=== PATIENT | male | born 1945 | race Caucasian/White ===

== ENCOUNTER 2020-01-20 09:57 | Observation (INO) | payer BC, MEDICARE ==
[2020-01-20 10:51] LABS: Basophils % (A) 0 %; Eosinophils # (A) 0.1 k/uL (0-0.7); Eosinophils % (A) 1 %; HCT 43.4 % (39.0-53.0); HGB 14.6 gm/dL (13.0-17.5); Lymphocytes # (A) 1.1 k/uL (1.0-4.8); Lymphocytes % (A) 13 %; MCH 29.6 pg (25.0-35.0); MCHC 33.8 g/dL (31.0-37.0); MCV 87.6 fL (80.0-100.0); Mean Platelet Volume 7.3; Monocytes # (A) 0.4 k/uL (0-1.0); Monocytes % (A) 5 %; Neutrophils % (A) 80 %; Platelet Count 273 k/uL (150-450); RBC 4.95 m/uL (4.30-5.90); RDW 13.2 % (11.5-15.5); WBC 8.7 k/uL (3.8-10.6)
--- NOTE | 2020-01-20 10:59 | ED ---
General Adult HPI - General Chief complaint: Shortness of Breath Stated complaint: SOB Time Seen by Provider: 01/20/20 10:05 Source: patient, RN notes reviewed, old records reviewed Mode of arrival: wheelchair Limitations: no limitations - History of Present Illness Initial comments: This is a 74-year-old male who presents emergency Department stating he has been short of breath for a month. Patient states 2 days ago he went to [facility] where he was admitted and eventually discharged. Patient states that they could not determine why he was short of breath. Patient comes in today because last night in the middle the night he was having hard time breathing even with his CPAP. Patient states she got up and walked around and was extre josep short of breath so decided come emergency department. Patient denies any recent fever chills or cough. Patient denies any chest pain or heaviness. Patient denies headache patient denies numbness weakness. Patient denies any swelling to legs or calf tenderness. - Related Data Home Medications Medication Instructions Recorded Confirmed Aspirin EC [Ecotrin Low Dose] 81 mg PO DAILY 01/20/20 01/20/20 Metoprolol Tartrate [Lopressor] 100 mg PO BID 01/20/20 01/20/20 Multivit-Min/FA/Lycopen/Lutein 1 tab PO DAILY 01/20/20 01/20/20 [Centrum Silver Tablet] Omeprazole 20 mg PO BID 01/20/20 01/20/20 Simvastatin [Zocor] 20 mg PO HS 01/20/20 01/20/20 amLODIPine [Norvasc] 10 mg PO DAILY 01/20/20 01/20/20 hydroCHLOROthiazide [Hydrodiuril] 25 mg PO DAILY 01/20/20 01/20/20 lisinopriL [Zestril] 20 mg PO BID 01/20/20 01/20/20 Allergies Allergy/AdvReac Type Severity Reaction Status Date / Time oxycodone AdvReac Nausea & Verified 01/20/20 11:48 Vomiting Review of Systems ROS Statement: Those systems with pertinent positive or pertinent negative responses have been documented in the HPI. ROS Other: All systems not noted in ROS Statement are negative. Past Medical History Past Medical History: Coronary Artery Disease (CAD), CVA/TIA History of Any Multi-Drug Resistant Organisms: None Reported Past Surgical History: Back Surgery, Joint Replacement Past Psychological History: No Psychological Hx Reported Smoking Status: Never smoker Past Alcohol Use History: None Reported Past Drug Use History: None Reported General Exam - General Exam Comments Initial Comments: GENERAL: Patient is well-developed and well-nourished. Patient is nontoxic and well- hydrated and is in mild distress. ENT: Neck is soft and supple. No significant lymphadenopathy is noted. Oropharynx is clear. Moist mucous membranes. Neck has full range of motion without eliciting any pain. EYES: The sclera were anicteric and conjunctiva were pink and moist. Extraocular movements were intact and pupils were equal round and reactive to light. Eyelids were unremarkable. PULMONARY: Unlabored respirations. Good breath sounds bilaterally. No audible rales rhonchi or wheezing was noted. CARDIOVASCULAR: There is a regular rate and rhythm without any murmurs gallops or rubs. ABDOMEN: Soft and nontender with normal bowel sounds. SKIN: Skin is clear with no lesions or rashes and otherwise unremarkable. NEUROLOGIC: Patient is alert and oriented x3. Cranial nerves II through XII are grossly intact. Motor and sensory are also intact. Normal speech, volume and content. Symmetrical smile. MUSCULOSKELETAL: Normal extremities with adequate strength and full range of motion. LYMPHATICS: No significant lymphadenopathy is noted PSYCHIATRIC: Normal psychiatric evaluation. Limitations: no limitations Course Vital Signs 01/20/20 01/20/20 10:04 11:40 Temperature 98.0 F 97.9 F Pulse Rate 56 L 48 L Respiratory 18 16 Rate Blood Pressure 136/73 145/77 O2 Sat by Pulse 99 99 Oximetry Medical Decision Making - Medical Decision Making EKG shows sinus bradycardia at 47 bpm AR interval is 202 QRS is 100 QT interval is 468 QTC is 414. Patient's EKG shows no ST segment elevation or depression. Chest x-ray shows no acute abnormality. CT of the chest shows a blood clot the right upper lobe. I started the patient on high-dose heparin. I spoke with sounds physician's and he agreed to admit the patient admitted the patient I wrote admitting orders - Lab Data Result diagrams: 01/20/20 10:35 01/20/20 10:35 Lab Results 01/20/20 01/20/20 01/20/20 Range/Units 10:35 10:35 10:35 WBC 8.7 (3.8-10.6) k/uL RBC 4.95 (4.30-5.90) m/uL Hgb 14.6 (13.0-17.5) gm/dL Hct 43.4 (39.0-53.0) % MCV 87.6 (80.0-100.0) fL MCH 29.6 (25.0-35.0) pg MCHC 33.8 (31.0-37.0) g/dL RDW 13.2 (11.5-15.5) % Plt Count 273 (150-450) k/uL MPV 7.3 Neutrophils % 80 % Lymphocytes % 13 % Monocytes % 5 % Eosinophils % 1 % Basophils % 0 % Neutrophils # 7.0 (1.3-7.7) k/uL Lymphocytes # 1.1 (1.0-4.8) k/uL Monocytes # 0.4 (0-1.0) k/uL Eosinophils # 0.1 (0-0.7) k/uL Basophils # 0.0 (0-0.2) k/uL PT 9.8 (9.0-12.0) sec INR 0.9 (<1.2) APTT 23.3 (22.0-30.0) sec D-Dimer (<0.60) mg/L FEU Sodium 142 (137-145) mmol/L Potassium 3.7 (3.5-5.1) mmol/L Chloride 104 (98-107) mmol/L Carbon Dioxide 30 (22-30) mmol/L Anion Gap 8 mmol/L BUN 19 (9-20) mg/dL Creatinine 0.79 (0.66-1.25) mg/dL Est GFR (CKD-EPI)AfAm >90 (>60 ml/min/1.73 sqM) Est GFR (CKD-EPI)NonAf >90 (>60 ml/min/1.73 sqM) Glucose 111 H (74-99) mg/dL Plasma Lactic Acid Fredrick (0.7-2.0) mmol/L Calcium 9.1 (8.4-10.2) mg/dL Magnesium 1.9 (1.6-2.3) mg/dL Total Bilirubin 1.0 (0.2-1.3) mg/dL AST 33 (17-59) U/L ALT 24 (4-49) U/L Alkaline Phosphatase 85 (38-126) U/L Troponin I (0.000-0.034) ng/mL NT-Pro-B Natriuret Pep pg/mL Total Protein 7.0 (6.3-8.2) g/dL Albumin 4.1 (3.5-5.0) g/dL 01/20/20 01/20/20 01/20/20 Range/Units 10:35 10:35 10:35 WBC (3.8-10.6) k/uL RBC (4.30-5.90) m/uL Hgb (13.0-17.5) gm/dL Hct (39.0-53.0) % MCV (80.0-100.0) fL MCH (25.0-35.0) pg MCHC (31.0-37.0) g/dL RDW (11.5-15.5) % Plt Count (150-450) k/uL MPV Neutrophils % % Lymphocytes % % Monocytes % % Eosinophils % % Basophils % % Neutrophils # (1.3-7.7) k/uL Lymphocytes # (1.0-4.8) k/uL Monocytes # (0-1.0) k/uL Eosinophils # (0-0.7) k/uL Basophils # (0-0.2) k/uL PT (9.0-12.0) sec INR (<1.2) APTT (22.0-30.0) sec D-Dimer (<0.60) mg/L FEU Sodium (137-145) mmol/L Potassium (3.5-5.1) mmol/L Chloride (98-107) mmol/L Carbon Dioxide (22-30) mmol/L Anion Gap mmol/L BUN (9-20) mg/dL Creatinine (0.66-1.25) mg/dL Est GFR (CKD-EPI)AfAm (>60 ml/min/1.73 sqM) Est GFR (CKD-EPI)NonAf (>60 ml/min/1.73 sqM) Glucose (74-99) mg/dL Plasma Lactic Acid Fredrick 1.0 (0.7-2.0) mmol/L Calcium (8.4-10.2) mg/dL Magnesium (1.6-2.3) mg/dL Total Bilirubin (0.2-1.3) mg/dL AST (17-59) U/L ALT (4-49) U/L Alkaline Phosphatase (38-126) U/L Troponin I <0.012 (0.000-0.034) ng/mL NT-Pro-B Natriuret Pep 68 pg/mL Total Protein (6.3-8.2) g/dL Albumin (3.5-5.0) g/dL 01/20/20 Range/Units 10:35 WBC (3.8-10.6) k/uL RBC (4.30-5.90) m/uL Hgb (13.0-17.5) gm/dL Hct (39.0-53.0) % MCV (80.0-100.0) fL MCH (25.0-35.0) pg MCHC (31.0-37.0) g/dL RDW (11.5-15.5) % Plt Count (150-450) k/uL MPV Neutrophils % % Lymphocytes % % Monocytes % % Eosinophils % % Basophils % % Neutrophils # (1.3-7.7) k/uL Lymphocytes # (1.0-4.8) k/uL Monocytes # (0-1.0) k/uL Eosinophils # (0-0.7) k/uL Basophils # (0-0.2) k/uL PT (9.0-12.0) sec INR (<1.2) APTT (22.0-30.0) sec D-Dimer 1.05 H (<0.60) mg/L FEU Sodium (137-145) mmol/L Potassium (3.5-5.1) mmol/L Chloride (98-107) mmol/L Carbon Dioxide (22-30) mmol/L Anion Gap mmol/L BUN (9-20) mg/dL Creatinine (0.66-1.25) mg/dL Est GFR (CKD-EPI)AfAm (>60 ml/min/1.73 sqM) Est GFR (CKD-EPI)NonAf (>60 ml/min/1.73 sqM) Glucose (74-99) mg/dL Plasma Lactic Acid Fredrick (0.7-2.0) mmol/L Calcium (8.4-10.2) mg/dL Magnesium (1.6-2.3) mg/dL Total Bilirubin (0.2-1.3) mg/dL AST (17-59) U/L ALT (4-49) U/L Alkaline Phosphatase (38-126) U/L Troponin I (0.000-0.034) ng/mL NT-Pro-B Natriuret Pep pg/mL Total Protein (6.3-8.2) g/dL Albumin (3.5-5.0) g/dL Critical Care Time Critical Care Time: Yes Total Critical Care Time: 35 Disposition Clinical Impression: Pulmonary embolism Disposition: ADMITTED IP TO THIS HOSP Referrals: Nonstaff,Physician [Primary Care Provider] - 1-2 days Time of Disposition: 14:53
[2020-01-20 11:05] LABS: ALT 24 U/L (4-49); AST 33 U/L (17-59); African American GFR (CKD) >90 (>60 ml/min/1.73 sqM); Albumin 4.1 g/dL (3.5-5.0); Alkaline Phosphatase 85 U/L (38-126); Anion Gap 8 mmol/L; Blood Urea Nitrogen 19 mg/dL (9-20); Calcium 9.1 mg/dL (8.4-10.2); Carbon Dioxide 30 mmol/L (22-30); Chloride 104 mmol/L (98-107); Glucose 111 mg/dL (74-99); Magnesium 1.9 mg/dL (1.6-2.3); Non-African American GFR(CKD) >90 (>60 ml/min/1.73 sqM); Potassium 3.7 mmol/L (3.5-5.1); Sodium 142 mmol/L (137-145)
[2020-01-20 11:11] LABS: INR 0.9 (<1.2); Partial Thromboplastin Time 23.3 sec (22.0-30.0); Prothrombin Time 9.8 sec (9.0-12.0)
--- NOTE | 2020-01-20 11:32 | XR ---
EXAMINATION TYPE: XR chest 2V DATE OF EXAM: 01/20/2020 COMPARISON: NONE HISTORY: Difficulty in breathing. TECHNIQUE: Frontal and lateral views of the chest are obtained. FINDINGS: Overlying EKG leads are present. There is underlying mild chronic emphysematous changes th ought present without suspicious focal air space opacity, pleural effusion, or pneumothorax seen. Th e cardiac silhouette size is within normal limits. Multilevel spurring in the thoracic spine. IMPRESSION: No acute cardiopulmonary process.
[2020-01-20] MEDS ORDERED: HEPARIN SODIUM,PORCINE 5,000 UNIT/ML 1 ML VIAL IV ONE (14:38)
--- NOTE | 2020-01-20 14:39 | CT ---
EXAMINATION TYPE: CT chest angio for PE DATE OF EXAM: 01/20/2020 COMPARISON: None HISTORY: difficulty breathing CT DLP: 891.3 mGycm Automated exposure control for dose reduction was used. CONTRAST: CT Chest for pulmonary embolism performed with with IV Contrast, patient injected with 100 mL of Isov ue 370. FINDINGS: LUNGS: The lungs are grossly clear, there is no concerning parenchymal mass or nodule identified. T here is no pleural effusion or pneumothorax seen. The tracheobronchial tree is patent. Subsegmental changes involving the lungs are most typical of atelectasis. MEDIASTINUM: There small filling defect within the right upper lobe branch suspicious for a small pul monary embolism best noted on coronal image 99 and axial image 60. There are no greater than 1 cm hi lar or mediastinal lymph nodes. No pericardial effusion is seen. Aortic root measures 4 cm compat ible with mild aneurysmal dilation. Coronary artery calcification noted. OTHER: Hypertrophic and degenerative change of the spine. Hypodensity within caudate lobe of the maryse er is too small to characterize. IMPRESSION: 1. There is asymmetric tiny filling defect within a right upper lobe branch as discussed above suspic ious for a right upper lobe branch pulmonary embolism. 2. 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 3. Indeterminate hepatic lesion too small to characterize. 4. Cardiomegaly
[2020-01-20] MEDS ORDERED: HEPARIN SODIUM,PORCINE 10,000 UNIT/ML 1 ML VIAL IV ONE (14:42)
[2020-01-20] MEDS ORDERED: HEPARIN SOD,PORK IN 0.45% NACL 25,000 UNIT in 0.45% NACL 1 250ML.BAG IV SCH (14:45)
[2020-01-20] MEDS ORDERED: SODIUM CHLORIDE 0.9% 1,000 ML IV ONE (14:54)
[2020-01-20] MEDS: HEPARIN SODIUM,PORCINE 5,000 UNIT/ML 1 ML VIAL IV PRN (15:05)
[2020-01-20] MEDS: HEPARIN SOD,PORK IN 0.45% NACL 25,000 UNIT in 0.45% NACL 1 250ML.BAG IV SCH (15:07)
--- NOTE | 2020-01-20 18:04 | P.HPIM ---
History of Present Illness H&P Date: 01/20/20 Chief Complaint: Shortness of breath Patient is a 74-year-old male who presented to the hospital for shortness of breath overnight. The patient history of stroke with residual lower extremity neuropathy. He states uses a CPAP at night. The patient states despite the use of his CPAP he felt very short of breath. The patient states he was recently seen [facility] was hospitalized for 2 days in a states his workup was negative at the outside facility. In the emergency room patient had a CT that showed a possible small pulmonary emboli the patient was started on IV heparin and was hospitalized for further workup and management. He didn't denies any recent travel any sick contacts states he has been quarantining at home with his . The patient denies any fevers or chills and productive cough. Review of Systems Complete Review of systems was done and negative other than as stated above Past Medical History Past Medical History: Coronary Artery Disease (CAD), CVA/TIA History of Any Multi-Drug Resistant Organisms: None Reported Past Surgical History: Back Surgery, Joint Replacement Past Psychological History: No Psychological Hx Reported Smoking Status: Never smoker Past Alcohol Use History: None Reported Past Drug Use History: None Reported Medications and Allergies Home Medications Medication Instructions Recorded Confirmed Type Aspirin EC [Ecotrin Low Dose] 81 mg PO DAILY 01/20/20 01/20/20 History Metoprolol Tartrate [Lopressor] 100 mg PO BID 01/20/20 01/20/20 History Multivit-Min/FA/Lycopen/Lutein 1 tab PO DAILY 01/20/20 01/20/20 History [Centrum Silver Tablet] Omeprazole 20 mg PO BID 01/20/20 01/20/20 History Simvastatin [Zocor] 20 mg PO HS 01/20/20 01/20/20 History amLODIPine [Norvasc] 10 mg PO DAILY 01/20/20 01/20/20 History hydroCHLOROthiazide [Hydrodiuril] 25 mg PO DAILY 01/20/20 01/20/20 History lisinopriL [Zestril] 20 mg PO BID 01/20/20 01/20/20 History Allergies Allergy/AdvReac Type Severity Reaction Status Date / Time oxycodone AdvReac Nausea & Verified 01/20/20 11:48 Vomiting Physical Exam Vitals: Vital Signs Temp Pulse Resp BP Pulse Ox 01/20/20 16:46 50 L 14 138/76 99 01/20/20 15:51 97.9 F 48 L 18 138/62 99 01/20/20 14:58 97.8 F 51 L 16 144/60 99 01/20/20 11:40 97.9 F 48 L 16 145/77 99 01/20/20 10:04 98.0 F 56 L 18 136/73 99 Intake and Output 01/20/20 01/20/20 01/20/20 06:59 14:59 22:59 Other: Weight 136.078 kg - Constitutional General appearance: no acute distress - EENT Eyes: PERRLA - Respiratory Respiratory: bilateral: CTA - Cardiovascular Rhythm: regular - Gastrointestinal General gastrointestinal: normal bowel sounds - Integumentary Integumentary: normal - Neurologic Neurologic: CNII-XII intact - Musculoskeletal Musculoskeletal: strength equal bilaterally - Psychiatric Psychiatric: A&O x's 3, appropriate affect Results CBC & Chem 7: 01/20/20 10:35 01/20/20 10:35 Labs: Abnormal Lab Results - Last 24 Hours (Table) 01/20/20 01/20/20 Range/Units 10:35 10:35 D-Dimer 1.05 H (<0.60) mg/L FEU Glucose 111 H (74-99) mg/dL Abdominal x-ray: report reviewed CT scan - chest: report reviewed Assessment and Plan (1) Pulmonary embolism Narrative/Plan: Smooth-walled possible embolize noted does not appear that this could account for his shortness of breath we'll check echocardiogram, will also check lower extremity Dopplers will continue IV heparin Current Visit: Yes Status: Acute Code(s): I26.99 - OTHER PULMONARY EMBOLISM WITHOUT ACUTE COR PULMONALE SNOMED Code(s): 92468896 (2) COPD (chronic obstructive pulmonary disease) Narrative/Plan: The patient has a history of COPD we'll continue nebs when necessary Current Visit: Yes Status: Acute Code(s): J44.9 - CHRONIC OBSTRUCTIVE PULMONARY DISEASE, UNSPECIFIED SNOMED Code(s): 89982151 (3) Hypertension Narrative/Plan: Continue his outpatient regimen and titrate as needed Current Visit: Yes Status: Acute Code(s): I10 - ESSENTIAL (PRIMARY) HYPERTENSION SNOMED Code(s): 11166183
--- NOTE | 2020-01-20 20:25 | US ---
EXAMINATION TYPE: US venous doppler duplex LE DATE OF EXAM: 01/20/2020 7:20 PM COMPARISON: NONE CLINICAL HISTORY: r/o dvt. R/O DVT. Patient has PE. Patient is on a blood thinner. Swelling bilateral lower extremities. SIDE PERFORMED: Bilateral TECHNIQUE: The lower extremity deep venous system is examined utilizing real time linear array sonog abdulaziz with graded compression, doppler sonography and color-flow sonography. VESSELS IMAGED: Common Femoral Vein Deep Femoral Vein Greater Saphenous Vein * Femoral Vein Popliteal Vein Small Saphenous Vein * Proximal Calf Veins (* superficial vessels) Right Leg: No evidence of DVT in veins imaged at this time from prox calf veins to CFV, although exa m is very limited within femoral vein. Limited due to swelling. Left Leg: No evidence of DVT in veins imaged at this time from prox calf veins to CFV, although exam is very limited within the femoral vein. Limited visibility due to swelling. IMPRESSION: No evidence for deep vein thrombosis in both legs. Limited exam.
[2020-01-20] MEDS: IPRATROPIUM-ALBUTEROL 3 ML NEB INHALATION PRN (20:37)
[2020-01-20] MEDS: ATORVASTATIN 10 MG TAB PO SCH (21:15)
[2020-01-20] MEDS: METOPROLOL TARTRATE 50 MG TAB PO SCH (21:16)
[2020-01-20] MEDS: lisinopriL 20 MG TAB PO SCH (21:16)
[2020-01-21] MEDS: HEPARIN SODIUM,PORCINE 5,000 UNIT/ML 1 ML VIAL IV PRN (01:46)
[2020-01-21] MEDS: HEPARIN SOD,PORK IN 0.45% NACL 25,000 UNIT in 0.45% NACL 1 250ML.BAG IV SCH ×2 (04:47→12:48)
[2020-01-21 06:56] LABS: Basophils % (A) 1 %; Eosinophils # (A) 0.1 k/uL (0-0.7); Eosinophils % (A) 1 %; HCT 40.7 % (39.0-53.0); HGB 13.7 gm/dL (13.0-17.5); Lymphocytes # (A) 1.7 k/uL (1.0-4.8); Lymphocytes % (A) 20 %; MCH 30.1 pg (25.0-35.0); MCHC 33.8 g/dL (31.0-37.0); Mean Platelet Volume 7.3; Monocytes # (A) 0.5 k/uL (0-1.0); Monocytes % (A) 6 %; Neutrophils # (A) 5.8 k/uL (1.3-7.7); Neutrophils % (A) 70 %; Platelet Count 251 k/uL (150-450); RBC 4.57 m/uL (4.30-5.90); RDW 13.5 % (11.5-15.5); WBC 8.3 k/uL (3.8-10.6)
[2020-01-21] MEDS: hydroCHLOROthiazide 25 MG TAB PO SCH (08:30)
[2020-01-21] MEDS: ASPIRIN 81 MG PO SCH (08:30)
[2020-01-21] MEDS: lisinopriL 20 MG TAB PO SCH ×2 (08:31→20:53)
[2020-01-21] MEDS: amLODIPine 10 MG TAB PO SCH (08:31)
[2020-01-21] MEDS: PANTOPRAZOLE 40 MG TABLET PO SCH (08:31)
[2020-01-21] MEDS: MULTIVITAMINS, THERA 1 EACH TAB PO SCH (08:31)
[2020-01-21] MEDS: METOPROLOL TARTRATE 50 MG TAB PO SCH ×2 (08:31→20:54)
[2020-01-21 10:20] LABS: African American GFR (CKD) 86.8 (60.0-200.0); Calcium 8.8 mg/dL (8.7-10.3); Non-African American GFR(CKD) 74.9 (60.0-200.0); Potassium 3.6 mmol/L (3.5-5.5)
--- NOTE | 2020-01-21 11:34 | ECHOF ---
Referral Reason:dyspnea MEASUREMENTS -------- HEIGHT: 180.3 cm WEIGHT: 136.1 kg BP: 130/51 RVIDd: 3.7 cm (< 3.3) IVSd: 1.5 cm (0.6 - 1.1) LVIDd: 5.4 cm (3.9 - 5.3) LVPWd: 1.4 cm (0.6 - 1.1) IVSs: 2.2 cm LVIDs: 3.8 cm LVPWs: 1.8 cm LAESV Index (A-L): 23.84 ml/m Ao Diam: 3.2 cm (2.0 - 3.7) AV Cusp: 2.4 cm (1.5 - 2.6) MV EXCURSION: 21.568 mm (> 18.000) MV EF SLOPE: 82 mm/s (70 - 150) EPSS: 1.2 cm MV E Iam: 1.16 m/s MV DecT: 242 ms MV A Iam: 1.16 m/s MV E/A Ratio: 1.00 RAP: 5.00 mmHg RVSP: 26.87 mmHg FINDINGS -------- Sinus rhythm. This was a technically difficult study with suboptimal views. The left ventricular size is normal. There is moderate concentric left ventricular hypertrophy. O verall left ventricular systolic function is low-normal with, an EF between 50 - 55 %. The diastoli c filling pattern is normal for the age of the patient 10.90. The right ventricle is mildly enlarged. Normal LA size by volume 22+/-6 ml/m2. The right atrium was not well visualized. 5.0mg of Lumason was utilized for enhancement of images Interatrial and interventricular septum intact. There is no evidence of aortic regurgitation. There is no evidence of aortic stenosis. There is trace mitral regurgitation. Mild tricuspid regurgitation present. There is no evidence of pulmonary hypertension. The right v entricular systolic pressure, as measured by Doppler, is 26.87mmHg. There is no pulmonic regurgitation present. The aortic root size is normal. IVC Not well visulized. There is no pericardial effusion. CONCLUSIONS -------- 1. The left ventricular size is normal. 2. There is moderate concentric left ventricular hypertrophy. 3. Overall left ventricular systolic function is low-normal with, an EF between 50 - 55 %. 4. The diastolic filling pattern is normal for the age of the patient 10.90 5. The right ventricle is mildly enlarged. 6. There is trace mitral regurgitation. 7. Mild tricuspid regurgitation present. DIRECTOR OF PROGRAMMING: Natalie Garza RDCS
[2020-01-21] MEDS: IPRATROPIUM-ALBUTEROL 3 ML NEB INHALATION PRN (13:23)
--- NOTE | 2020-01-21 15:28 | CONS ---
CONSULTATION PULMONARY/CRITICAL CARE CONSULTATION: DATE OF SERVICE: January 21, 2020 HISTORY OF PRESENT ILLNESS: This is a 74-year-old male who presented to the emergency department complaining of shortness of breath. The shortness of breath has been present for about a month or so. Not getting any better. A couple days ago he went to [facility] where he was admitted and eventually discharged. Apparently they evaluated him, did some testing, and told him that they could not find out what was wrong with him. More recently, he comes into the emergency room on January 19 at 9:57 complaining of worsening shortness of breath. He was having a hard time breathing at nighttime when he was wearing a CPAP device. He got up and walked around and he became more short of breath and that is when he came to the emergency room. He denies any fever or chills or cough. Not producing any phlegm. No chest pain or chest heaviness. No nausea, vomiting, diarrhea, abdominal pain. No genitourinary complaints. He denies any headache. There is no numbness or tingling. He really denies all complaints other than progressive and worsening shortness of breath, more significant on exertion. The patient had a chest x-ray here which is normal and a CT angiogram which apparently showed a right upper lobe pulmonary embolism. HOME MEDICATIONS: Include aspirin, metoprolol, multivitamins, omeprazole, Zocor, amlodipine, HydroDIURIL and lisinopril. ALLERGIES: OXYCODONE. MEDICAL HISTORY: CAD, CVA, hypertension, hyperlipidemia, and gastroesophageal reflux disease. SURGICAL HISTORY: Includes back surgery and joint replacement. SOCIAL HISTORY: Significant in that he is a lifelong nonsmoker. Denies any alcohol or illicit drug use. FAMILY HISTORY: Noncontributory. Mother and father were healthy. 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 REVIEW OF SYSTEMS: CONSTITUTIONAL negative. NEUROLOGIC negative. HEENT negative. CARDIOVASCULAR negative. PULMONARY: Shortness of breath particularly on exertion. GI negative. negative. IMMUNOLOGIC negative. ENDOCRINOLOGIC negative. DERMATOLOGIC negative. PHYSICAL EXAMINATION: VITAL SIGNS: Current vital signs are reviewed. Temperature is 98, heart rate 74, respiratory rate 20, blood pressure 155/87 mean 109. 3 L saturations 100%. GENERAL: He is sitting on the edge of the bed. He appears not to be in any distress. There is no conversational dyspnea or use of accessory muscles. HEENT: Examination is grossly unremarkable. NECK: Supple. CARDIOVASCULAR examination reveals regular rhythm and rate. Heart rate 74 beats per minute. S1, S2 normal. LUNGS: Reveal mostly clear breath sounds. No wheezes, rhonchi, or crackles. ABDOMEN: Obese. Bowel sounds are heard. EXTREMITIES are intact. No cyanosis, clubbing, or edema. SKIN: Without rash. NEUROLOGIC: Examination is nonfocal. LAB DATA: Reviewed. White count 8.3, hemoglobin 13.7, hematocrit 40.7, platelet count 351,000. PT/INR PTT normal. D-dimer 1.05, PTT 47.8. Sodium, potassium chloride, CO2 all normal. Anion gap is normal. BUN and creatinine were normal. Glucose 115. The rest of the CMP was normal. IMAGING PROCEDURE: The patient had a chest x-ray which showed no acute disease. The patient had a bilateral lower extremity Doppler, which was negative for DVT. The patient had a CT angiogram of the chest done which revealed the right upper lobe pulmonary embolism. The embolism is relatively small. There is no evidence of right heart strain. Current medications reviewed. He is currently on amlodipine, aspirin, Lipitor, IV heparin, hydrochlorothiazide, DuoNeb lisinopril, metoprolol, multivitamins, Protonix. ASSESSMENT: 1. Shortness of breath, seemingly out of proportion to the abnormality on CT angiogram, which showed evidence of a small right upper lobe pulmonary embolism. 2. No history of any intrinsic pulmonary disease. 3. Lifelong nonsmoker. 4. History of coronary artery disease. 5. History of hypertension. 6. History of hyperlipidemia. 7. Gastroesophageal reflux disease. 8. Cerebrovascular accident. PLAN: The patient was started on IV heparin. He can be transitioned to a factor Xa inhibitor. He is on oxygen therapy. We did add some breathing treatments. No additional recommendations are made. Prognosis is guarded. MMODL / IJN: [id number] /
--- NOTE | 2020-01-21 16:00 | P.PN ---
Subjective Progress Note Date: 01/21/20 Principal diagnosis: Shortness of breath or pulmonary embolism Objective - Vital Signs Vital signs: Vital Signs Temp 98 F 01/21/20 12:50 Pulse 74 01/21/20 13:37 Resp 20 01/21/20 12:50 BP 155/87 01/21/20 12:50 Pulse Ox 100 01/21/20 12:50 Intake & Output 01/20/20 01/21/20 01/21/20 18:59 06:59 18:59 Intake Total 250.000 227.994 Balance 250.000 227.994 Weight 136.078 kg Intake: Intake, IV Titration 250.000 227.994 Amount Heparin Sod,Pork in 0.45% 250.000 227.994 NaCl 25,000 unit In 0.45 % NaCl 1 250ml.bag @ 16.9 UNITS/KG/HR 22.997 mls/ hr IV .[id number] RODY Rx#: [id number] Other: # Voids 1 2 - Constitutional General appearance: Present: no acute distress - Respiratory Respiratory: bilateral: CTA - Cardiovascular Rhythm: regular - Gastrointestinal General gastrointestinal: Present: normal bowel sounds - Psychiatric Psychiatric: Present: appropriate affect - Labs CBC & Chem 7: 01/21/20 06:26 01/21/20 06:26 Labs: Abnormal Lab Results - Last 24 Hours (Table) 01/21/20 01/21/20 Range/Units 06:26 06:26 APTT 47.8 H (22.0-30.0) sec Glucose 115 H (70-110) mg/dL Assessment and Plan (1) Pulmonary embolism Narrative/Plan: Appreciate pulmonary input will change to an factor X inhibitor, extremity Dopplers negative for DVT, continue to optimize check and reassess in a.m. Current Visit: Yes Status: Acute Code(s): I26.99 - OTHER PULMONARY EMBOLISM WITHOUT ACUTE COR PULMONALE SNOMED Code(s): 08747347 (2) COPD (chronic obstructive pulmonary disease) Narrative/Plan: The patient is a lifelong nonsmoker nebs added Current Visit: Yes Status: Acute Code(s): J44.9 - CHRONIC OBSTRUCTIVE PULMONARY DISEASE, UNSPECIFIED SNOMED Code(s): 00790742 (3) Hypertension Narrative/Plan: Continue outpatient regiment and titrate as needed Current Visit: Yes Status: Acute Code(s): I10 - ESSENTIAL (PRIMARY) HYPERTENSION SNOMED Code(s): 08200968
[2020-01-21] MEDS: RIVAROXABAN 15 MG TAB PO SCH (17:11)
[2020-01-21] MEDS ORDERED: RIVAROXABAN 20 MG TAB PO SCH (17:30)
[2020-01-21] MEDS: ATORVASTATIN 10 MG TAB PO SCH (20:53)
[2020-01-21] MEDS: ALBUTEROL HFA INHALER INHALATION PRN (21:34)
[2020-01-22 07:16] LABS: Basophils % (A) 1 %; Eosinophils # (A) 0.1 k/uL (0-0.7); Eosinophils % (A) 1 %; HCT 41.9 % (39.0-53.0); HGB 14.1 gm/dL (13.0-17.5); Lymphocytes # (A) 1.6 k/uL (1.0-4.8); Lymphocytes % (A) 20 %; MCH 29.8 pg (25.0-35.0); MCHC 33.7 g/dL (31.0-37.0); MCV 88.5 fL (80.0-100.0); Mean Platelet Volume 7.3; Monocytes # (A) 0.4 k/uL (0-1.0); Monocytes % (A) 5 %; Neutrophils % (A) 72 %; Platelet Count 239 k/uL (150-450); RBC 4.74 m/uL (4.30-5.90); RDW 13.3 % (11.5-15.5); WBC 8.3 k/uL (3.8-10.6)
[2020-01-22] MEDS: hydroCHLOROthiazide 25 MG TAB PO SCH (07:37)
[2020-01-22] MEDS: RIVAROXABAN 15 MG TAB PO SCH ×2 (07:37→17:18)
[2020-01-22] MEDS: MULTIVITAMINS, THERA 1 EACH TAB PO SCH (07:37)
[2020-01-22] MEDS: PANTOPRAZOLE 40 MG TABLET PO SCH (07:37)
[2020-01-22] MEDS: ASPIRIN 81 MG PO SCH (07:38)
[2020-01-22] MEDS: lisinopriL 20 MG TAB PO SCH ×2 (07:38→21:03)
[2020-01-22] MEDS: amLODIPine 10 MG TAB PO SCH (07:38)
[2020-01-22] MEDS: METOPROLOL TARTRATE 50 MG TAB PO SCH ×2 (07:40→21:24)
[2020-01-22] MEDS: ALBUTEROL HFA INHALER INHALATION PRN ×4 (08:21→19:32)
[2020-01-22 11:49] LABS: African American GFR (CKD) 86.8 (60.0-200.0); Anion Gap 5.7 mmol/L (4.00-12.00); Calcium 9.2 mg/dL (8.7-10.3); Carbon Dioxide 32.3 mmol/L (21.6-31.8); Non-African American GFR(CKD) 74.9 (60.0-200.0)
[2020-01-22] MEDS: IPRATROPIUM-ALBUTEROL 3 ML NEB INHALATION SCH ×4 (12:14→19:32)
--- NOTE | 2020-01-22 16:50 | P.PN ---
Subjective Progress Note Date: 01/22/20 Patient is feeling well today. He is off of the oxygen this morning. He was anxious and did not want to go home and wanted to be monitored in the hospital 1 more day. Objective - Vital Signs Vital signs: Vital Signs Temp 98.1 F 01/22/20 12:16 Pulse 50 L 01/22/20 12:16 Resp 12 01/22/20 12:16 BP 138/74 01/22/20 12:16 Pulse Ox 96 01/22/20 12:16 Intake & Output 01/21/20 01/22/20 01/22/20 18:59 06:59 18:59 Intake Total 605.327 3607 600 Output Total 200 600 Balance 227.994 980 0 Intake: Intake, IV Titration 227.994 Amount Heparin Sod,Pork in 0.45% 227.994 NaCl 25,000 unit In 0.45 % NaCl 1 250ml.bag @ 16.9 UNITS/KG/HR 22.997 mls/ hr IV .[id number] [facility] Rx#: [id number] Oral 1180 600 Output: Urine 200 600 Other: # Voids 2 2 - Exam General: The patient is awake and alert, in no distress Eye: there is normal conjunctiva bilaterally. Neck: The neck is supple, there is no JVD. Cardiovascular: Normal S1-S2, no S3-S4, no murmurs. Respiratory: Lungs clear to auscultation bilaterally Gastrointestinal: Abdomen is soft, nontender Musculoskeletal: There is no pedal edema. Neurological:. Speech is normal. Skin: Skin is warm and dry - Labs CBC & Chem 7: 01/22/20 06:46 01/22/20 06:46 Labs: Abnormal Lab Results - Last 24 Hours (Table) 01/22/20 Range/Units 06:46 Carbon Dioxide 32.3 H (21.6-31.8) mmol/L Assessment and Plan Assessment: (1) Pulmonary embolism Narrative/Plan: Appreciate pulmonary input will change to an factor X inhibitor, extremity Dopplers negative for DVT, continue to optimize check and reassess in a.m. Current Visit: Yes Status: Acute Code(s): I26.99 - OTHER PULMONARY EMBOLISM WITHOUT ACUTE COR PULMONALE SNOMED Code(s): 49625789 (2) COPD (chronic obstructive pulmonary disease) Narrative/Plan: The patient is a lifelong nonsmoker nebs added Current Visit: Yes Status: Acute Code(s): J44.9 - CHRONIC OBSTRUCTIVE PULMONARY DISEASE, UNSPECIFIED SNOMED Code(s): 47147843 (3) Hypertension Narrative/Plan: Continue outpatient regiment and titrate as needed Current Visit: Yes Status: Acute Code(s): I10 - ESSENTIAL (PRIMARY) HYPERTENSION SNOMED Code(s): 32188363
--- NOTE | 2020-01-22 18:28 | PN ---
PROGRESS NOTE PULMONARY/CRITICAL CARE PROGRESS NOTE. HISTORY: This is a 74-year-old gentleman who we saw in consultation yesterday. He was short of breath, and CT angiogram revealed evidence of a small right upper lobe pulmonary embolism. Yesterday, we thought his shortness of breath was out of proportion to the clot burden. Today, he seems like he is doing much better. To me it looked like he could go home today. He was started on a factor Xa inhibitor, i.e. Xarelto. He was adamant about staying 1 more day. He has a history of being a lifelong nonsmoker, CAD, hypertension, hyperlipidemia, GERD, and CVA. PHYSICAL EXAMINATION: VITAL SIGNS: Current vital signs are reviewed temperature 98.1 heart rate 50, respiratory rate 12, blood pressure 138/74 mean 95, room air saturation 96%. Appears in no acute distress. HEENT: Examination is grossly unremarkable. NECK: Supple. Full range of motion. No adenopathy. Neck veins are flat. CARDIOVASCULAR: Examination reveals regular rhythm rate. S1, S2 normal. No S3, S4, or murmur. Heart rate 50 beats per minute. LUNGS: Reveal mostly clear breath sounds. No wheezes, rhonchi, or crackles. ABDOMEN: Soft extremities are intact. No cyanosis, clubbing, or edema. SKIN: Without rash. NEUROLOGIC: Examination is brief but nonfocal. White count 8.3, hemoglobin 14.1, hematocrit 41.9, platelet count normal. Sodium and potassium normal. Chloride 103, CO2 of 32 anion gap 5.7. BUN and creatinine were 19 and 1.0. Microbiologic studies are negative. A venous Doppler study of the lower extremities also negative. MEDICATIONS: Reviewed. The patient was placed on Xarelto. ASSESSMENT: 1. Shortness of breath, seemingly out of proportion to the abnormality on CT angiogram, which showed evidence of a small right upper lobe pulmonary embolism. 2. No history of any intrinsic pulmonary disease. 3. Lifelong nonsmoker. 4. History of coronary artery disease. 5. Hypertension. 6. Hyperlipidemia. 7. Gastroesophageal reflux disease. 8. Cerebrovascular accident. 9. Obesity. PLAN: The patient was transitioned to Xarelto. He will take 50 mg twice a day for 21 days and then 20 mg once a day for at least 6 months of therapy. He had an unprovoked pulmonary embolism. He will need a followup CT angiogram in about 10-12 weeks. I would be happy to see him in the office in followup. MMODL / IJN: [id number] /
[2020-01-22 19:44] VITALS: RESP 16
[2020-01-22] MEDS: ATORVASTATIN 10 MG TAB PO SCH (21:03)
[2020-01-23 02:58] LABS: Glucose,Whole Blood 113 mg/dL (75-99)
[2020-01-23] MEDS: PANTOPRAZOLE 40 MG TABLET PO SCH (07:11)
[2020-01-23] MEDS: RIVAROXABAN 15 MG TAB PO SCH (07:11)
[2020-01-23] MEDS: amLODIPine 10 MG TAB PO SCH (07:11)
[2020-01-23] MEDS: lisinopriL 20 MG TAB PO SCH (07:12)
[2020-01-23] MEDS: MULTIVITAMINS, THERA 1 EACH TAB PO SCH (07:12)
[2020-01-23] MEDS: METOPROLOL TARTRATE 50 MG TAB PO SCH (07:12)
[2020-01-23] MEDS: ASPIRIN 81 MG PO SCH (07:12)
[2020-01-23] MEDS: hydroCHLOROthiazide 25 MG TAB PO SCH (07:13)
[2020-01-23 07:24] VITALS: BP 112/63; PULSE 51; TEMP 97.6
[2020-01-23] MEDS: IPRATROPIUM-ALBUTEROL 3 ML NEB INHALATION SCH (09:04)
[2020-01-23] MEDS: ALBUTEROL HFA INHALER INHALATION PRN (09:04)
--- NOTE | 2020-01-23 09:24 | P.DS ---
Providers Date of admission: 01/20/20 15:19 Expected date of discharge: 01/23/20 Attending physician: Bernie Mclain DO Consults: 01/21/20 11:18 Consult Physician Routine Consulting Provider: Johnnie Duvall Reason/Comments: dyspnea ? Pulmonary emboli Do you want consulting provider notified?: Yes Primary care physician: Physician Nonstaff Hospital Course: This is a 74-year-old male with past medical history noted below who presented to the emergency room with worsening shortness of breath. Patient was evaluated in the ER admitted to the hospital for further management of medical problems noted below 1. Pulmonary emboli, noted in the right upper lobe branch on CT. Seen and evaluated by pulmonology. Started on anticoagulation with Rivaroxaban. Will need 6 months of anticoagulation. Repeat CT angiogram of the chest in 3 months for follow-up. With O2 sats ration on room air. 2. Sinus bradycardia, secondary to metoprolol use. Patient was on metoprolol 100 mg twice daily. His dose was decreased to metoprolol 50 mg once a day in the morning. Echocardiogram showed preserved ejection fraction with no significant valvular abnormalities 3. History of obstructive sleep apnea, on CPAP at home. Encouraged to have a follow-up sleep study and the nocturnal oxygen evaluation 4. Essential hypertension: Blood pressure within acceptable range. 5. Hyperlipidemia Patient was having symptomatic relief with albuterol inhaler. He will be given a prescription. He does not have any risk factors or history of COPD. He will follow-up with pulmonology in the office for a formal PFT. Patient will be discharged home in a stable condition. For further he does about this observation stay please refer to the electronic chart. Plan - Discharge Summary New Discharge Prescriptions: New Metoprolol Tartrate [Lopressor] 50 mg PO DAILY #30 tab Albuterol Inhaler [Ventolin Hfa Inhaler] 2 puff INHALATION RT-QID PRN #1 inhaler PRN Reason: Shortness Of Breath Rivaroxaban [Xarelto Starter Pack] 0 mg PO DIRECTED 30 Days #1 pack Continue lisinopriL [Zestril] 20 mg PO BID amLODIPine [Norvasc] 10 mg PO DAILY Omeprazole 20 mg PO BID Multivit-Min/FA/Lycopen/Lutein [Centrum Silver Tablet] 1 tab PO DAILY hydroCHLOROthiazide [Hydrodiuril] 25 mg PO DAILY Simvastatin [Zocor] 20 mg PO HS Aspirin EC [Ecotrin Low Dose] 81 mg PO DAILY Discontinued Metoprolol Tartrate [Lopressor] 100 mg PO BID Discharge Medication List Aspirin EC [Ecotrin Low Dose] 81 mg PO DAILY 01/20/20 [History] Multivit-Min/FA/Lycopen/Lutein [Centrum Silver Tablet] 1 tab PO DAILY 01/20/20 [History] Omeprazole 20 mg PO BID 01/20/20 [History] Simvastatin [Zocor] 20 mg PO HS 01/20/20 [History] amLODIPine [Norvasc] 10 mg PO DAILY 01/20/20 [History] hydroCHLOROthiazide [Hydrodiuril] 25 mg PO DAILY 01/20/20 [History] lisinopriL [Zestril] 20 mg PO BID 01/20/20 [History] Albuterol Inhaler [Ventolin Hfa Inhaler] 2 puff INHALATION RT-QID PRN #1 inhaler 01/23/20 [Rx] Metoprolol Tartrate [Lopressor] 50 mg PO DAILY #30 tab 01/23/20 [Rx] Rivaroxaban [Xarelto Starter Pack] 0 mg PO DIRECTED 30 Days #1 pack 01/23/20 [Rx] Follow up Appointment(s)/Referral(s): Nonstaff,Physician [Primary Care Provider] - 1-2 days Johnnie Duvall DO [Doctor of Osteopathic Medicine] - 2 Weeks Discharge Disposition: HOME SELF-CARE
--- NOTE | 2020-01-23 09:41 | P.PN ---
Subjective Progress Note Date: 01/23/20 Principal diagnosis: The patient is seen today 01/23/2020 in follow-up on the observation unit. He is awake and alert in no acute distress. No worsening shortness of breath, coug h or congestion. He is currently maintaining O2 saturations in the 90s on room air. He's afebrile. He has been maintained on Xarelto for a small right upper lobe branch pulmonary embolism. Blood glucose 113. Objective - Vital Signs Vital signs: Vital Signs Temp 97.6 F 01/23/20 07:23 Pulse 51 L 01/23/20 07:23 Resp 16 01/23/20 07:23 BP 112/63 01/23/20 07:23 Pulse Ox 98 01/23/20 07:23 Intake & Output 01/22/20 01/23/20 01/23/20 18:59 06:59 18:59 Intake Total 600 540 Output Total 600 Balance 0 540 Intake: Oral 600 540 Output: Urine 600 Other: # Voids 1 - Exam GENERAL EXAM: Alert, obese 74-year-old gentleman, on room air, comfortable in no apparent distress. HEAD: Normocephalic. EYES: Normal reaction of pupils, equal size. NOSE: Clear with pink turbinates. THROAT: No erythema or exudates. NECK: No masses, no JVD. CHEST: No chest wall deformity. LUNGS: Equal air entry with no crackles, wheeze, rhonchi or dullness. CVS: S1 and S2 normal with no audible murmur, regular rhythm. ABDOMEN: No hepatosplenomegaly, normal bowel sounds, no guarding or rigidity. SPINE: No scoliosis or deformity SKIN: No rashes CENTRAL NERVOUS SYSTEM: No focal deficits, tone is normal in all 4 extremities. EXTREMITIES: There is no peripheral edema. No clubbing, no cyanosis. Peripheral pulses are intact. - Labs CBC & Chem 7: 01/22/20 06:46 01/22/20 06:46 Labs: Abnormal Lab Results - Last 24 Hours (Table) 01/22/20 01/23/20 Range/Units 06:46 02:56 Carbon Dioxide 32.3 H (21.6-31.8) mmol/L POC Glucose (mg/dL) 113 H (75-99) mg/dL Assessment and Plan Assessment: 1 Dyspnea in a patient found to have a small right upper lobe pulmonary embolism. Symptoms out of proportion compared to findings. 2 Lifelong nonsmoker 3 History of coronary disease 4 Hypertension 5 Hyperlipidemia 6 Gastroesophageal reflux disease 7 History of CVA 8 Obesity Plan: The patient was seen and evaluated by Dr. Duvall He has been initiated on Xarelto Recommended for at least 6 months of therapy Cleared for discharge Follow-up in the office for further evaluation of his dyspnea Repeat CT angiogram in 10-12 weeks. I, the cosigning physician, performed a history & physical examination of the patient. Lungs sounds are clear. Maintaining good O2 saturations in the 90s on room air. I discussed the assessment and plan of care with my nurse practitioner, Aleena Noel. I attest to the above note as dictated by her.
[2020-01-23] MEDS ORDERED: METOPROLOL TARTRATE 50 MG TAB PO SCH (21:00)
== END 2020-01-23 10:45 | disposition home or self-care (01) ==
LOC: EC 09:57 → 4SSUR 15:19 → 6NMEDSUR 17:32 → 1SOBS 01-22 18:07
PROVIDERS: ADMIT Internal Medicine; ATTEND Internal Medicine
DX: I26.99 Other pulmonary embolism without acute cor pulmonale (principal); Z99.89 Dependence on other enabling machines and devices; Z98.890 Other specified postprocedural states; I69.359 Hemiplegia and hemiparesis following cerebral infarction affecting unspecified side; K21.9 Gastro-esophageal reflux disease without esophagitis; E66.9 Obesity, unspecified; Z68.41 Body mass index [BMI] 40.0-44.9, adult; E78.5 Hyperlipidemia, unspecified; I25.10 Atherosclerotic heart disease of native coronary artery without angina pectoris; J44.9 Chronic obstructive pulmonary disease, unspecified; I10 Essential (primary) hypertension; Z79.82 Long term (current) use of aspirin; Z79.899 Other long term (current) drug therapy; Z88.4 Allergy status to anesthetic agent; Z88.5 Allergy status to narcotic agent
CPT/HCPCS: 96366 ×2; 96372; 96376; 96365; 99291; 36415; 94640 ×6; 93005; 85379; 83880; 80053; 80048 ×2; 83605; 83735; 84484; 85025 ×3; 85610; 85730 ×2; 71046; 93970; 71275; G0378 ×6; C8929; J1644 ×5; Q9950; Q9967; 93306

== ENCOUNTER → 2020-04-03 | Outpatient (CLI) | payer MEDICARE ==
[2020-04-03 12:21] LABS: African American GFR (CKD) >90 (>60 ml/min/1.73 sqM); Blood Urea Nitrogen 18 mg/dL (9-20); Non-African American GFR(CKD) >90 (>60 ml/min/1.73 sqM)
--- NOTE | 2020-04-03 13:56 | CT ---
EXAMINATION TYPE: CT angio chest DATE OF EXAM: 04/03/2020 COMPARISON: 01/20/2020 HISTORY: Follow up PE. CT DLP: 685 mGycm CONTRAST: CT chest with contrast and 3D reconstruction with MIP imaging is performed with IV Contrast, patient injected with 100 mL of Isovue 370. Contrast-enhanced CT of the chest was performed through the course of the pulmonary arteries with luis g and mediastinal window settings submitted. 3D reconstruction with MIP imaging was also performed. PULMONARY ARTERIES: The pulmonary arteries and their major tributaries are patent. I do not see faustina dence for sizable filling defect to suggest pulmonary embolic process. LUNGS: The lungs are clear and free of infiltrate. No evidence for atelectasis. No pulmonary nodule or mass is detected. No pleural effusion. MEDIASTINUM: Thoracic aorta is of normal caliber,however, evaluation is limited given timing of the contrast bolus. If there is concern for thoracic aortic pathology consider ISMAEL. Correlate clinicall y . The heart is not enlarged. No evidence for mediastinal mass. No mediastinal lymph nodes greater than 1cm. HILAR STRUCTURES: No evidence for mass. No hilar lymph nodes greater than 1 cm. UPPER ABDOMEN: No significant abnormality is seen. IMPRESSION: 1. No evidence for Pulmonary embolism at this time.
== END | disposition home or self-care (01) ==
LOC: RADCTMAIN 11:24
PROVIDERS: ATTEND Internal Medicine Critical Care Medicine
DX: I26.99 Other pulmonary embolism without acute cor pulmonale (principal); Z88.5 Allergy status to narcotic agent
CPT/HCPCS: 82565; 84520; 71275; 36415; Q9967

== ENCOUNTER → 2020-04-20 | Outpatient (CLI) | payer MEDICARE ==
[2020-04-20 16:46] LABS: INR 0.96 (0.90-1.11); Prothrombin Time 10.5 sec (9.9-11.9)
[2020-04-21 00:12] LABS: Cardiolipin Ab IgG Interp NEGATIVE (NEGATIVE); Cardiolipin Ab IgM Interp NEGATIVE (NEGATIVE); Cardiolipin IgA Antibody <0.5 U/mL; Cardiolipin IgM Antibody 1.2 U/mL
[2020-04-21 11:45] LABS: Protein S Antigen 107 % (50 - 140)
[2020-04-21 11:46] LABS: APTT 45 Sec(s) (<43); APTT 1:1 Mix 42 Sec(s) (<43); DRVVT 1:1 Mix 47 Sec(s) (<44); DRVVT Confirmation Negative (Negative); Dilute Russell Viper Venom 68 Sec(s) (<44)
[2020-04-21 13:06] LABS: Anti-Thrombin III Activity 135 % (79-109); Protein C (Activity) 117 % (71-138)
== END | disposition home or self-care (01) ==
LOC: LABWHC1 09:12
PROVIDERS: ATTEND Internal Medicine Critical Care Medicine
DX: Z09 Encounter for follow-up examination after completed treatment for conditions other than malignant neoplasm (principal); Z86.711 Personal history of pulmonary embolism
CPT/HCPCS: 36415; 85300; 85303; 85305; 85610; 85613; 85730; 86147

== ENCOUNTER 2020-09-05 11:31 | Emergency (ER) | payer MEDICARE ==
[2020-09-05 11:38] VITALS: BP 142/65; PULSE 68; RESP 20; TEMP 97.5
[2020-09-05] MEDS ORDERED: KETOROLAC 15 MG/ML 1 ML VIAL IM STA (12:06)
--- NOTE | 2020-09-05 12:07 | ED ---
General Adult HPI - General Chief complaint: Fall Stated complaint: fall, lt shoulder injury Time Seen by Provider: 09/05/20 11:42 Source: patient Mode of arrival: ambulatory Limitations: no limitations - History of Present Illness Initial comments: 75-year-old male presents to the emergency room for chief complaint of left shoulder pain. Patient states last night he was in the garage when he tripped over a hose and fell on his left hand. Patient states this injured his left shoulder. He did not hit his head. He states that throughout the night the pain is gradually worsening and he could not sleep so presented to the emergency room. Patient denies any other injuries. He does not take blood thinners and has not taken them in over 2 months.Patient has no other complaints at this time including shortness of breath, chest pain, abdominal pain, nausea or vomiting, headache, or visual changes. - Related Data Home Medications Medication Instructions Recorded Confirmed Aspirin EC [Ecotrin Low Dose] 81 mg PO DAILY 01/20/20 01/20/20 Multivit-Min/FA/Lycopen/Lutein 1 tab PO DAILY 01/20/20 01/20/20 [Centrum Silver Tablet] Omeprazole 20 mg PO BID 01/20/20 01/20/20 Simvastatin [Zocor] 20 mg PO HS 01/20/20 01/20/20 amLODIPine [Norvasc] 10 mg PO DAILY 01/20/20 01/20/20 hydroCHLOROthiazide [Hydrodiuril] 25 mg PO DAILY 01/20/20 01/20/20 lisinopriL [Zestril] 20 mg PO BID 01/20/20 01/20/20 Previous Rx's Medication Instructions Recorded Albuterol Inhaler [Ventolin Hfa 2 puff INHALATION RT-QID PRN #1 01/23/20 Inhaler] inhaler Apixaban [Eliquis] 5 mg PO BID #60 tab 01/23/20 Apixaban [Eliquis] 10 mg PO BID 6 Days #24 tab 01/23/20 Metoprolol Tartrate [Lopressor] 50 mg PO DAILY #30 tab 01/23/20 HYDROcodone/APAP 5-325MG [[place] 1 tab PO Q6HR PRN #12 tab 09/05/20 5-325] Allergies Allergy/AdvReac Type Severity Reaction Status Date / Time oxycodone AdvReac Nausea & Verified 09/05/20 11:37 Vomiting Review of Systems ROS Statement: Those systems with pertinent positive or pertinent negative responses have been documented in the HPI. ROS Other: All systems not noted in ROS Statement are negative. Past Medical History Past Medical History: Coronary Artery Disease (CAD), CVA/TIA History of Any Multi-Drug Resistant Organisms: None Reported Past Surgical History: Back Surgery, Joint Replacement Additional Past Surgical History / Comment(s): rt hip Past Psychological History: No Psychological Hx Reported Smoking Status: Never smoker Past Alcohol Use History: None Reported Past Drug Use History: None Reported - Past Family History Father Family Medical History: No Reported History General Exam Limitations: no limitations General appearance: alert, in no apparent distress Head exam: Present: atraumatic, normocephalic, normal inspection Eye exam: Present: normal appearance, PERRL, EOMI. Absent: scleral icterus, conjunctival injection, periorbital swelling ENT exam: Present: normal exam, mucous membranes moist Neck exam: Present: normal inspection, full ROM. Absent: tenderness, meningismus, lymphadenopathy Respiratory exam: Present: normal lung sounds bilaterally. Absent: respiratory distress, wheezes, rales, rhonchi, stridor Cardiovascular Exam: Present: regular rate, normal rhythm, normal heart sounds. Absent: systolic murmur, diastolic murmur, rubs, gallop, clicks GI/Abdominal exam: Present: soft, normal bowel sounds. Absent: distended, tenderness, guarding, rebound, rigid Extremities exam: Present: tenderness (Tenderness to the lateral aspect of the left shoulder), normal capillary refill (Capillary refill less than 2 seconds, radial pulse 2+ left upper extremity), other (sen[place] intact left upper extremity). Absent: full ROM (Patient has 90 flexion and abduction of the left shoulder.) Course Vital Signs 09/05/20 11:33 Temperature 97.5 F L Pulse Rate 68 Respiratory 20 Rate Blood Pressure 142/65 O2 Sat by Pulse 98 Oximetry - Reevaluation(s) Reevaluation #1: 09/05/20 12:06 Patient denies taking blood thinners, has not had eliquis in over 2 months. Patient does not want any narcotic pain medication here in the emergency room, therefore was given Toradol. Medical Decision Making - Medical Decision Making X-ray shows no acute process. However despite some slight subluxation secondary to ligamentous injury on x-ray. Patient was also evaluated by Dr. Beth. At this time we recommend he wear a splint. He was given pain medication for home. Toradol here in the emergency room helped significantly. Patient was referred to orthopedics. He will return here for any worsening symptoms. Disposition Clinical Impression: Shoulder pain, left Disposition: HOME SELF-CARE Condition: Good Instructions (If sedation given, give patient instructions): Shoulder Pain (ED) Additional Instructions: Please take Motrin for pain. If pain is severe take [place]. Please follow-up with orthopedics by calling today for an appointment. Wear sling while up and walking around. Return to the emergency room for any worsening symptoms. Prescriptions: HYDROcodone/APAP 5-325MG [[place] 5-325] 1 tab PO Q6HR PRN #12 tab PRN Reason: Pain Is patient prescribed a controlled substance at d/c from ED?: Yes When asked, does pt state using other controlled substances?: No If prescribed controlled substance>3 days was MAPS reviewed?: Prescribed <3 Days If opioid is for acute pain is fill amount 7 days or less?: Yes If Rx opioid, was Start Talking consent form obtained?: Yes Referrals: Randy Frye MD [Primary Care Provider] - 1-2 days Kristian Ch MD [STAFF PHYSICIAN] - 1-2 days Time of Disposition: 13:31
--- NOTE | 2020-09-05 13:03 | XR ---
EXAMINATION TYPE: XR shoulder complete LT DATE OF EXAM: 09/05/2020 COMPARISON: NONE HISTORY: Pain TECHNIQUE: Three views are submitted. FINDINGS: The osseous structures are intact. There is no acute fracture or dislocation. AC joint hypertrophic arthropathy.. IMPRESSION: 1. No acute process.
== END 2020-09-05 13:51 | disposition home or self-care (01) ==
LOC: EC 11:31
DX: M25.512 Pain in left shoulder (principal); I25.10 Atherosclerotic heart disease of native coronary artery without angina pectoris; Z86.73 Personal history of transient ischemic attack (TIA), and cerebral infarction without residual deficits; Z79.51 Long term (current) use of inhaled steroids
CPT/HCPCS: 73030; 99283; 96372; J1885

== ENCOUNTER → 2020-12-28 | Outpatient (CLI) | payer MEDICARE ==
[2020-12-28 10:17] LABS: African American GFR (CKD) >90 (>60 ml/min/1.73 sqM); Blood Urea Nitrogen 16 mg/dL (9-20); Non-African American GFR(CKD) 86 (>60 ml/min/1.73 sqM)
--- NOTE | 2020-12-28 11:21 | CT ---
EXAMINATION TYPE: CT angio chest DATE OF EXAM: 12/28/2020 COMPARISON: 04/03/2020 HISTORY: Shortness of breath CT DLP: 1033.70 mGycm CONTRAST: CT chest with contrast and 3D reconstruction with MIP imaging is performed without and with IV Contra st, patient injected with 100 ml mL of Isovue 370. Contrast-enhanced CT of the chest was performed through the course of the pulmonary arteries with luis g and mediastinal window settings submitted. 3D reconstruction with MIP imaging was also performed. PULMONARY ARTERIES: The pulmonary arteries and their major tributaries are patent. I do not see faustina dence for sizable filling defect to suggest pulmonary embolic process. LUNGS: The lungs are clear and free of infiltrate. No evidence for atelectasis. No pulmonary nodule or mass is detected. No pleural effusion. MEDIASTINUM: Thoracic aorta is of normal caliber,however, evaluation is limited given timing of the contrast bolus. If there is concern for thoracic aortic pathology consider ISMAEL. Correlate clinicall y . The heart is not enlarged. No evidence for mediastinal mass. No mediastinal lymph nodes greater than 1cm. HILAR STRUCTURES: No evidence for mass. No hilar lymph nodes greater than 1 cm. UPPER ABDOMEN: No significant abnormality is seen. IMPRESSION: 1. No evidence for Pulmonary embolism at this time.
== END | disposition home or self-care (01) ==
LOC: RADCTMAIN 09:22
PROVIDERS: ATTEND Internal Medicine Critical Care Medicine
DX: R06.02 Shortness of breath (principal)
CPT/HCPCS: 82565; 84520; 71275; 36415; Q9967

== ENCOUNTER 2021-04-10 09:19 | Day surgery (SDC) | payer MEDICARE ==
[2021-04-05 12:57] VITALS: BMI 41.8
[~2021-04-10 09:19] MED LIST: LACTATED RINGERS 1,000 ML IV SCH; LIDOCAINE 1% (10MG/ML) FOR IV START INTRADERMA PRN
[2021-04-10 09:49] VITALS: RESP 16; TEMP 97.9
[2021-04-10] MEDS ORDERED: PROPOFOL 10 MG/ML 20 ML VIAL IV ONE (10:27)
--- NOTE | 2021-04-10 10:32 | P.GSHP ---
History of Present Illness H&P Date: 04/10/21 Chief Complaint: Colon cancer screening 75-year-old male here today for colonoscopy. Patient has a history of 2 polyps removed 7-8 years ago. He is not sure what type of polyp. Says he was advised to have a repeat colonoscopy 7 years later. No bowel complaints. Past Medical History Past Medical History: COPD, CVA/TIA, Hypertension, Pulmonary Embolus (PE), Sleep Apnea/CPAP/BIPAP Additional Past Medical History / Comment(s): CVA 2004, has double vision. Neuropathy BLE. Hx kidney stones. Uses CPAP. PE 01/2020. c/o AM nausea. History of Any Multi-Drug Resistant Organisms: None Reported Past Surgical History: Back Surgery, Joint Replacement Additional Past Surgical History / Comment(s): Total Rt hip. Colonoscopy. Cataracts bilat. Past Anesthesia/Blood Transfusion Reactions: Motion Sickness Smoking Status: Never smoker - Past Family History Father Family Medical History: Respiratory Disorder Additional Family Medical History / Comment(s): mesothelioma Medications and Allergies Home Medications Medication Instructions Recorded Confirmed Type Aspirin EC [Ecotrin Low Dose] 81 mg PO DAILY 01/20/20 04/10/21 History Multivit-Min/FA/Lycopen/Lutein 1 tab PO DAILY 01/20/20 04/10/21 History [Centrum Silver Tablet] Simvastatin [Zocor] 20 mg PO HS 01/20/20 04/10/21 History amLODIPine [Norvasc] 10 mg PO DAILY 01/20/20 04/10/21 History hydroCHLOROthiazide [Hydrodiuril] 25 mg PO DAILY 01/20/20 04/10/21 History lisinopriL [Zestril] 20 mg PO BID 01/20/20 04/10/21 History Fluticasone/Umeclidin/Vilanter 1 inhalation INHALATION DAILY 04/05/21 04/10/21 History [Trelegy Ellipta 100-62.5-25] Metoprolol Tartrate [Lopressor] 100 mg PO DAILY 04/05/21 04/10/21 History Allergies Allergy/AdvReac Type Severity Reaction Status Date / Time oxycodone AdvReac Nausea & Verified 04/10/21 09:38 Vomiting Surgical - Exam Vital Signs Temp Pulse Resp BP Pulse Ox 97.9 F 65 16 151/70 97 04/10/21 09:30 04/10/21 09:30 04/10/21 09:30 04/10/21 09:30 04/10/21 09:30 Physical exam: General: Well-developed, well-nourished HEENT: Normocephalic, sclerae nonicteric Abdomen: Nontender, nondistended Extremities: No edema Neuro: Alert and oriented Assessment and Plan (1) Colon cancer screening Narrative/Plan: Will proceed with colonoscopy at this time Current Visit: Yes Status: Acute Code(s): Z12.11 - ENCOUNTER FOR SCREENING FOR MALIGNANT NEOPLASM OF COLON SNOMED Code(s): 177927280
--- NOTE | 2021-04-10 10:47 | P.PCN ---
Date of Procedure: 04/10/21 Procedure(s) Performed: PREOPERATIVE DIAGNOSIS: Colon cancer screening, history of polyps POSTOPERATIVE DIAGNOSIS: Sigmoid colon polyp, diverticulosis PROCEDURE: Colonoscopy with snare polypectomy ANESTHESIA: MAC SURGEON: Patric Valero M.D. SPECIMENS: Sigmoid colon polyps ENDOSCOPIC PROCEDURE: The patient was placed on the endoscopy table in the left decubitus position. The Olympus colonoscope was inserted into the anus and passed under direct visualization to the base of the cecum. The appendiceal orifice was visualized. From that point the scope was slowly withdrawn inspecting all surfaces carefully. There were no neoplastic inflammatory or polypoid lesions throughout the cecum, ascending, transverse, and descending colon. In the sigmoid colon a small polyp was seen and removed using the snare with cautery technique. The patient had mild left-sided diverticulosis as well. Digital rectal examination was normal. The patient was taken to the recovery room in stable condition per anesthesia guidelines. RECOMMENDATIONS: Await biopsy results. Anticipate repeat colonoscopy 5-7 years.
[2021-04-10 11:19] VITALS: BP 123/68; PULSE 55
== END 2021-04-10 11:33 | disposition home or self-care (01) ==
LOC: ORWHC2ENDO 09:19
PROVIDERS: ATTEND Surgery
DX: Z12.11 Encounter for screening for malignant neoplasm of colon (principal); D12.5 Benign neoplasm of sigmoid colon; K57.30 Diverticulosis of large intestine without perforation or abscess without bleeding; Z86.010 Personal history of colon polyps; I10 Essential (primary) hypertension; G47.30 Sleep apnea, unspecified; Z86.73 Personal history of transient ischemic attack (TIA), and cerebral infarction without residual deficits; Z86.711 Personal history of pulmonary embolism; Z85.89 Personal history of malignant neoplasm of other organs and systems; Z96.641 Presence of right artificial hip joint; G62.9 Polyneuropathy, unspecified; Z87.442 Personal history of urinary calculi; Z98.42 Cataract extraction status, left eye; Z98.41 Cataract extraction status, right eye; Z98.890 Other specified postprocedural states
CPT/HCPCS: 88305; 45385; J2704

== ENCOUNTER → 2021-08-13 | Outpatient (CLI) | payer MEDICARE ==
--- NOTE | 2021-08-13 14:39 | XR ---
EXAM TYPE: LUMBAR SPINE X RAY SERIES COMPARISON: NONE HISTORY: Pain TECHNIQUE: 4 views are submitted. FINDINGS: Alignment is anatomic. The pedicles are intact. The transverse processes are intact. There is no s pondylolysis or spondylolisthesis. Multilevel hypertrophic and degenerative disc disease with modera te to severe degenerative disc disease at all levels. Multilevel facet arthropathy with severe change s L4-5 and L5-S1. Large bridging anterior osteophytes correlate for diffuse idiopathic skeletal hyper ostosis. IMPRESSION: 1. Moderate to severe multilevel degenerative disc disease most marked at L4-5 and L5-S1 with severe facet arthropathy and bilateral foraminal encroachment. Suspect canal stenosis recommend MRI.. 2. Correlate for DISH.
--- NOTE | 2021-08-13 14:40 | XR ---
EXAMINATION TYPE: XR thoracic spine complete DATE OF EXAM: 08/13/2021 COMPARISON: NONE HISTORY: Pain TECHNIQUE: 3 views submitted FINDINGS: Alignment is anatomic. There is no compression deformities. Multilevel hypertrophic and degenerative changes with curvature of the spine. IMPRESSION: 1. Multilevel moderate to severe hypertrophic and degenerative disc disease. Correlate with MRI as cl inically warranted.
== END | disposition home or self-care (01) ==
LOC: RADXRMAIN 14:02
PROVIDERS: ATTEND Internal Medicine
DX: M47.816 Spondylosis without myelopathy or radiculopathy, lumbar region (principal); M51.26 Other intervertebral disc displacement, lumbar region
CPT/HCPCS: 72072; 72110

== ENCOUNTER → 2021-09-04 | Outpatient (CLI) | payer MEDICARE ==
--- NOTE | 2021-09-05 04:28 | MR ---
EXAMINATION TYPE: MR lumbar spine wo con DATE OF EXAM: 09/04/2021 COMPARISON: None HISTORY: Low back pain that radiates into both legs. History of surgery. Multiplanar multiecho imaging of the lumbar spine with no contrast. Lumbar vertebrae have normal alignment. There is degenerative disc space narrowing throughout the lum bar spine and more severe at L4-5. There is minimal posterior disc bulging at L4-5 and L2-3. There is hypertrophic facet arthropathy and developmentally small spinal canal. There is resultant mild spina l stenosis at L4-5. There is some mild neural foraminal narrowing throughout the lumbar spine due to disc space narrowing and facet arthropathy. There is no lumbar paraspinal mass. No focal bone destruc tion. IMPRESSION: Multilevel spondylotic changes. Mild relative spinal stenosis at L4-5. No fracture.
== END | disposition home or self-care (01) ==
LOC: RADMRIMAIN 07:27
PROVIDERS: ATTEND Internal Medicine
DX: M47.816 Spondylosis without myelopathy or radiculopathy, lumbar region (principal); M48.061 Spinal stenosis, lumbar region without neurogenic claudication; M99.73 Connective tissue and disc stenosis of intervertebral foramina of lumbar region
CPT/HCPCS: 72148

== ENCOUNTER → 2021-09-19 | Outpatient (CLI) | payer MEDICARE ==
[2021-09-19 07:54] VITALS: BP 129/56; PULSE 54; RESP 16; TEMP 98.2
--- NOTE | 2021-09-19 08:04 | P.PAINPG ---
PQRS Measure Charge Sheet Comment: HISTORY OF PRESENT ILLNESS: 76 yr old male as a referral from Dr. Frye presents today with severe and chronic LBP secondary to DDD, spinal stenosis, disc bulges and facet arthropathy for evaluation. Patient states his pain level is 7 out of 10 in intensity, constant, dull in character in the mid to lower aspects of his lumbar spine, slightly right of midline for the last 3 months with occasional sharp, tingling pain down the lower extremities, right greater than left. Pain is provoked with standing and walking for periods of 15 minutes or more. Pain is relieved with medications, physical therapy which she is currently an, home stretching regimen, use of a cane for ambulation, massage therapy integrated with PT, TENS unit device use integrated with PT, repositioning and rest. PMH: COPD, CVA/TIA (2004), HTN, PE, Sleep Apnea/CPAP/BIPAP PSH: Back Surgery, Total R Hip Replacement, BL Cataract Resection, Hx Nephrolithiasis, Colonoscopy SH: Negative x 3 FH: Father- Mesothelioma All: Oxycodone Meds: See list REVIEW OF ORGAN SYSTEMS: CONSTITUTIONAL: No fevers or chills. No recent weight loss. NEUROLOGICAL: + numbness and tingling along the distal extremities. No seizure disorders or headaches. MUSCULOSKELETAL: + pain PSYCHIATRIC: Denies current depression or suicidal thoughts. Physical Examinations : Constitutional : Cooperative , not in acute distress . Neurologic : Cranial nerve II to XII intact. No focal neurological deficits. Psychiatric : alert & oriented x 3. Matching mood & appropriate affect. Judgment & insight intact. Musculoskeletal : Cervical Spine Motor strength in the deltoid and biceps: Normal right side. Normal Left side Motor strength biceps and the wrist extensors: Normal right side . Normal left side Motor strength in the triceps muscle: Normal right side. Normal left side Deep tendon reflexes: Normal at the biceps. Normal at Brachioradialis. Normal at triceps Vertebral body tenderness to deep palpation over Cervical facet loading test: positive bilaterally Spurling test: positive bilaterally Neck distraction test: positive bilaterally Saad sign: positive bilaterally Lumbar spine Motor strength lower extremities ,thigh and legs 5/5 Right side , 5/5 Left side Deep tendon reflexes : Normal Knee Jerk. Normal Ankle Jerk Vertebral body tenderness over L2, L3 Lumbar facet Loading Test: positive Rig ht / positive Left Range of motion of the lumbar spine Flexion 30 degrees, extension 10 degrees Straight Leg Raise test: Left/ Right positive at degree Agata test: positive right / positive left. Severe tenderness over the Sacroiliac joint on the Right / Left sides Gaenslen test: positive bilaterally Seated flexion test: positive bilaterally. Sacral spine : Severe tenderness over the Sacroiliac joint: right side / left side Range of motion: Flexion of the lumbar spine <60 degrees Range of motion: Extension of the lumbar spine <20 degrees Gaenslen's Test positive Ilir's Test positive Agata test: positive right side / left side Thigh Thrust Test Sacral Thrust Test Imaging: MRI without contrast of the lumbar spine from 09/04/21 reviewed Assessment/ Plan : Lumbar DDD Recommendation of R paramedian L2-L3. May need a series of injections, up to 3 within a 6 mo period, for optimal pain relief. Risks, benefits of procedure discussed and patient verbalized understanding. Denies aspirin or anti- coagulant use or medical history of diabetes. Protocol for discontinuation/ continuation of medications taco procedure discussed. All questions answered. I have spent greater than 30 minutes on patient care today. Dr Crouch was available by phone for the evaluation of this patient. The time was used to review the medical records including relevant urine studies and Prescription history (MAPs), review of the available imaging, evaluation and examination of the patient, coordination of care with the medical staff and if applicable referring physicians, as well as creation of the medical record - Pain Location Lower Back Non-Pharmacological Interventions: Heat, Home Exercise, Inactivity, Massage, Physical Therapy, Position/Reposition, Stretching Home Medications: Ambulatory Orders Aspirin EC [Ecotrin Low Dose] 81 mg PO DAILY 01/20/20 Multivit-Min/FA/Lycopen/Lutein [Centrum Silver Tablet] 1 tab PO DAILY 01/20/20 Simvastatin [Zocor] 20 mg PO HS 01/20/20 amLODIPine [Norvasc] 10 mg PO DAILY 01/20/20 hydroCHLOROthiazide [Hydrodiuril] 25 mg PO DAILY 01/20/20 lisinopriL [Zestril] 20 mg PO BID 01/20/20 Fluticasone/Umeclidin/Vilanter [Trelegy Ellipta 100-62.5-25] 1 inhalation INHALATION DAILY 04/05/21 Metoprolol Tartrate [Lopressor] 100 mg PO DAILY 04/05/21 Controlled Substance Measures - Controlled Substance Measures Is patient prescribed a controlled substance at discharge?: No
== END ==
LOC: PNWHC3 07:19
PROVIDERS: ATTEND Specialist
DX: M51.36 Other intervertebral disc degeneration, lumbar region (principal); J44.9 Chronic obstructive pulmonary disease, unspecified; Z86.73 Personal history of transient ischemic attack (TIA), and cerebral infarction without residual deficits; I10 Essential (primary) hypertension; Z86.711 Personal history of pulmonary embolism; Z88.5 Allergy status to narcotic agent
CPT/HCPCS: 99211

== ENCOUNTER → 2021-11-13 | Day surgery (SDC) | payer MEDICARE ==
[2021-10-24 11:27] VITALS: BMI 41.3
[~2021-11-13] MED LIST changes: +IOPAMIDOL M200 10 ML VIAL ONE; +LACTATED RINGERS 1,000 ML BAG IV ONE; -LIDOCAINE 1% (10MG/ML) FOR IV START INTRADERMA PRN; +MIDAZOLAM 2 MG/2 ML VIAL ONE; +fentaNYL (PF) 50 MCG/ML 2 ML AMP ONE; +methylPREDNISolone ACETATE 40 MG/ML 1 ML VIAL ONE
--- NOTE | 2021-11-13 22:49 | P.PCN ---
Date of Procedure: 11/13/21 Description of Procedure: Procedure: 1. Right-sided L2-L3 Epidural steroid injection under fluoroscopic guidance , 2. Lumbar epidurogram PREOPERATIVE DIAGNOSIS: Lumbar degenerative disc disease, POSTOPERATIVE DIAGNOSIS: Lumbar degenerative disc disease SURGEON: Dustin Berkowitz ANESTHESIA: Local with 1% lidocaine, and IV sedation : Versed 1 mg, and fentanyl 50 g Sedation supervision start time: 1411 Sedation supervision end time: 1418 EBL: None. Specimen removed: None Fluoroscopic image: saved to electronic medical records PROCEDURE INDICATION: The patient had history of Lumbar degenerative disc disease and Lumbar radiculopathy. Failed to conservative therapy. Presented for epidural steroid injection. PROCEDURE DESCRIPTION: The patient was seen and identified in the preoperative area. Risks, benefits, complications, and alternatives were discussed with the patient. The patient agreed to proceed with the procedure and signed the consent. IV was started, and vital signs were stable. Patient was taken to the procedure area, and time out was completed. The patient was placed in the prone position on procedure table and a pillow was placed under the abdomen to reduce lumbar lordosis. The lumbosacral area was prepped and draped in the usual sterile fashion. Critical pause was taken. Vital signs were closely monitored during the procedure. Using anterior-posterior fluoroscopy, the L2-L3 interlaminar space was identified, and skin and deeper tissues were localized with 1% lidocaine. Using anterior-posterior fluoroscopy, lateral fluoroscopy, and [id number] technique, a 20 gauge 3.5 Tuohy epidural needle entered the epidural space. After negative aspiration of CSF and blood with no paresthesias, 2 ml of [id number] contrast dye was injected and an excellent epidurogram was seen. Again after negative aspiration of CSF and blood with no paresthesias, 6 mL of block solution was injected into the epidural space. Block solution contained 40 mg of Depo-Medrol, and 5 mL of preservative-free normal saline. Needle was withdrawn intact, skin was cleansed, and bandages were applied. COMPLICATIONS: None. DISPOSITION / PLANS: The patient was placed in a supine position and transferred to the recovery area in a stable condition for observation. Patient was discharged from the recovery room after meeting discharge criteria. Home discharge instructions given to the patient by the staff. The patient was reexamined prior to discharge. The patient will schedule a follow up in the clinic in 4 weeks.
== END ==
LOC: ORPAIN 12:06
DX: M51.16 Intervertebral disc disorders with radiculopathy, lumbar region (principal); J44.9 Chronic obstructive pulmonary disease, unspecified; I10 Essential (primary) hypertension; K21.9 Gastro-esophageal reflux disease without esophagitis; E78.00 Pure hypercholesterolemia, unspecified; G47.33 Obstructive sleep apnea (adult) (pediatric); Z88.5 Allergy status to narcotic agent; Z79.82 Long term (current) use of aspirin; Z79.51 Long term (current) use of inhaled steroids; Z79.899 Other long term (current) drug therapy; Z83.6 Family history of other diseases of the respiratory system; Z84.89 Family history of other specified conditions; Z86.711 Personal history of pulmonary embolism; Z96.641 Presence of right artificial hip joint
CPT/HCPCS: 62323; J2250; J1030; J3010; Q9966

== ENCOUNTER → 2021-12-06 | Outpatient (CLI) | payer MEDICARE ==
[2021-12-06 07:55] VITALS: BP 126/73; PULSE 67; RESP 16
--- NOTE | 2021-12-06 13:38 | P.PAINPG ---
PQRS Measure Charge Sheet Comment: A 76 yr old male with a history of severe and chronic low back pain secondary to lumbar degenerative disc diseases and lumbar spondylosis with facet arthropathy without myelopathy presents today for evaluation s/p R L2-L3 DOMENICO. Pt states he experienced 50 % pain relief x 3 wks s/p procedure. Pain level is c urrently at 5 /10 in intensity, constant, localized in R lumbar spine, achy in character w sharp/ shooting towards R knee. Pain is provoked by any twisting or bending. Pain is alleviated with PT twice a week currently, home exercise regimen, KT tape while at PT, injections, repositioning and rest. Interventional pain procedures completed include R Paramedian DOMENICO L2-L3 Patient is currently on DENIES Patient denies any side effects of the medication(s), denies excessive drowsiness or sleepiness, denies suicidal ideation and reports that the current pain medication is helping to control the pain and improve activities of daily living. Patient denies any motor or sensory deficits. Patient denies any fever or night sweats, denies any change in the bowel movements or urination. Physical Examination: -Constitutional: Cooperative. Not in acute distress . - Neurologic: Cranial nerve II to XII intact. No focal neurological deficits. - Psychatric: Alert & oriented x 3. Matching mood & appropriate affect. Judgment and insight intact. - Musculoskeletal: Cervical spine: Muscle bulk/ tone/ strength in the bilateral upper extremities normal Vertebral body tenderness to palpation over Spurling test positive Distraction test positive Facet loading test positive Thoracic spine Muscle bulk / tone/ strength in the bilateral paraspinal muscles normal Vertebral body tender to palpation over Facet loading test positive Lumbar spine: Motor bulk/ tone/ strength lower extremities , thigh and legs : 5/5 Deep tendon reflexes : Normal Knee Jerk. Normal Ankle Jerk . Vertebral body tenderness to palpation over L3 Lumbar Facet Loading Test positive Straight Leg Raise: positive at 30 degrees right side/ left side Gaenslen's Test positive Sacral spine : Severe tenderness over the Sacroiliac joint: right side / left side Range of motion: Flexion of the lumbar spine <60 degrees Range of motion: Extension of the lumbar spine <20 degrees Gaenslen's Test positive Ilir's Test positive Agata test: positive right side / left side Thigh Thrust Test Sacral Thrust Test Assessment and plan: Chronic low back pain secondary to lumbar degenerative disc disease , lumbar spondylosis with facet arthropathy without myelopathy Recommendation of R paramedian DOMENICO L2-L3 #2. May need a series of injections,up to 3 within a 6 mo period, for optimal pain relief. Risks, benefits of procedure discussed and pt verbalized understanding. Admits to anticoagulant use or medical history of diabetes. Protocol for discontinuation/ continuation of meds taco procedure discussed. All patient questions answered I have spent less than 30 minutes on patient care today. Dr Crouch was available by phone for the evaluation of this patient. The time was used to review the medical records including relevant urine studies and Prescription history (MAPs), review of the available imaging, evaluation and examination of the patient, coordination of care with the medical staff and if applicable referring physicians, as well as creation of the medical record PQRS Narrative: Hx Alcohol Use (MH) No Home Medications: Ambulatory Orders Aspirin EC [Ecotrin Low Dose] 81 mg PO DAILY 01/20/20 Multivit-Min/FA/Lycopen/Lutein [Centrum Silver Tablet] 1 tab PO DAILY 01/20/20 Simvastatin [Zocor] 20 mg PO HS 01/20/20 amLODIPine [Norvasc] 10 mg PO DAILY 01/20/20 hydroCHLOROthiazide [Hydrodiuril] 25 mg PO DAILY 01/20/20 lisinopriL [Zestril] 20 mg PO BID 01/20/20 Fluticasone/Umeclidin/Vilanter [Trelegy Ellipta 100-62.5-25] 1 inhalation INHALATION DAILY 04/05/21 Albuterol Sulfate [Albuterol Sulfate Hfa] 2 puff PO Q4HR PRN 10/24/21 Dicyclomine [Bentyl] 10 mg PO DAILY PRN 10/24/21 Metoprolol Tartrate [Lopressor] 25 mg PO QAM 10/24/21 Vitamin B Complex 1 each PO DAILY 10/24/21 allopurinoL 300 mg PO DAILY 10/24/21 Controlled Substance Measures - Controlled Substance Measures Is patient prescribed a controlled substance at discharge?: No
== END ==
LOC: PNWHC3 07:18
PROVIDERS: ATTEND Specialist
DX: M47.816 Spondylosis without myelopathy or radiculopathy, lumbar region (principal); M51.36 Other intervertebral disc degeneration, lumbar region; G89.29 Other chronic pain; Z88.5 Allergy status to narcotic agent
CPT/HCPCS: 99211

== ENCOUNTER 2022-01-08 07:45 | Day surgery (SDC) | payer MEDICARE ==
[2022-01-08] MEDS ORDERED: LACTATED RINGERS 1,000 ML IV SCH (07:58)
[2022-01-08 08:08] VITALS: TEMP 98.9
[2022-01-08] MEDS ORDERED: IOPAMIDOL M200 10 ML VIAL ONE (08:59)
[2022-01-08] MEDS ORDERED: methylPREDNISolone ACETATE 80 MG/ML 1 ML VIAL ONE (08:59)
--- NOTE | 2022-01-08 09:12 | P.PCN ---
Date of Procedure: 01/08/22 Procedure(s) Performed: PREOPERATIVE DIAGNOSIS: 1- Lumbar Degenerative Disc Diseases 2-Lumbar spondylosis with Facet arthropathy without myelopathy. 3-lumbar radiculopathy POSTOPERATIVE DIAGNOSIS: Same as preop diagnosis. PROCEDURE 1. Lumbar epidural steroid injection under fluoroscopic guidance at the L2-3 level. (Fluoroscopy imaging was available in radiology department) 2. Lumbar epidurogram. ANESTHESIA: Local anesthetic with lidocaine 1% 3 mL only EBL: Minimal PROCEDURE INDICATION: The patient with low back pain and radiculitis symptoms unresponsive to conservative treatment. Fluoroscopy was used to optimize visualization of the needle placement and to maximize safety. PROCEDURE DESCRIPTION / TECHNIQUE: The patient was seen and identified in the preoperative area. Risks, benefits, complications including but not limited to infections ,bleeding ,allergic reaction to the medications ,nerve damage and not complete pain releife , and alternatives were discussed with the patient. The patient agreed to proceed with the procedure and signed the consent , and vital signs were stable. Patient was taken to the OR and time out was completed. The patient was placed in the prone position on procedure table and a pillow was placed under the abdomen to reduce lumbar lordosis. The lumbosacral area was prepped and draped in the usual sterile fashion.ere closely monitored during the procedure. Vital signs was monitered during the entire procedure. Using anterior-posterior fluoroscopy, the L2-3 interlaminar space was identified and the skin over this site was marked and then infiltrated with 1% lidocaine subcutaneously. Subsequently, a 20-gauge Tuohy epidural needle was inserted and advanced toward the epidural space using the ``Loss of resistance technique and guided by AP and lateral fluoroscopy. The correct needle position in the epidural space was verified with the injection of 2 mL of the water soluble contrast dye Isovue 200 contrast and observing an excellent epidurogram with the epidural spread of the dye, after negative aspiration for blood and CSF and in the absence of paresthesias. Again after negative aspiration, a 6 ml mixture containing 60 mg of Depo-medrol ( Preservetive Free ), and 2 ml of preservative free Normal Saline, and 2 ml of preservative free lidocaine 1% solution was injected and a washout of epidurogram was seen. Needle was withdrawn intact, skin was cleansed, and bandages were applied. COMPLICATIONS: None DISPOSITION / PLANS: The patient was placed in a supine position and transferred to the recovery area in a stable condition for observation. There was no evidence of lower extremity motor or sensory deficit after the procedure. Patient was discharged from the recovery room after meeting discharge criteria. Home discharge instructions were given to the patient by the staff. The patient was reexamined prior to discharge. The patient will schedule a follow up in the clinic in 2-4 weeks.
[2022-01-08 09:19] VITALS: RESP 16
[2022-01-08 09:32] VITALS: BP 122/64; PULSE 64
--- NOTE | 2022-01-08 09:54 | FL ---
EXAMINATION TYPE: FL guided pain mgmt statistic DATE OF EXAM: 01/08/2022 HISTORY: Fluoroscopy time 1 seconds of fluoroscopy provided. IMPRESSION: 1. Fluoroscopy time.
== END 2022-01-08 09:38 | disposition home or self-care (01) ==
LOC: ORPAIN 07:45
PROVIDERS: ATTEND Specialist
DX: M51.16 Intervertebral disc disorders with radiculopathy, lumbar region (principal); M47.26 Other spondylosis with radiculopathy, lumbar region
CPT/HCPCS: 62323; J1040; Q9966

== ENCOUNTER → 2022-02-13 | Outpatient (CLI) | payer MEDICARE ==
[2022-02-13 08:23] VITALS: BP 119/70; PULSE 60; RESP 16; TEMP 98
--- NOTE | 2022-02-13 14:23 | P.PAINPG ---
PQRS Measure Charge Sheet Comment: A 76 yr old male with a history of severe and chronic low back pain secondary to lumbar DDD and spondylosis with facet arthropathy without myelopathy presents today for evaluation s/p DOMENICO L2-L3 #2. Pt states he experienced 80 % pain relief x 5 wks s/p procedure. Pain level is currently at 5 /10 in intensity, constant, localized in R lower lumbar spine, sharp/ shooting towards the RLE. Pain is provoked by walking for periods for 10 min or more, or standing from a sitting position. Pain is alleviated with PT integrated w massage x 12 wks which he is currently in, heat, use of a TENS unit, use of a cane for ambulation, repositioning and rest. Interventional pain procedures completed include DOMENICO L2-L3 x2 Patient is currently on DENIES Patient denies any side effects of the medication(s), denies excessive drowsiness or sleepiness, denies suicidal ideation and reports that the current pain medication is helping to control the pain and improve activities of daily living. Patient denies any motor or sensory deficits. Patient denies any fever or night sweats, denies any change in the bowel movements or urination. Physical Examination: -Constitutional: Cooperative. Not in acute distress . - Neurologic: Cranial nerve II to XII intact. No focal neurological deficits. - Psychatric: Alert & oriented x 3. Matching mood & appropriate affect. Judgment and insight intact. - Musculoskeletal: Cervical spine: Muscle bulk/ tone/ strength in the bilateral upper extremities normal Vertebral body tenderness to palpation over Spurling test positive Distraction test positive Facet loading test positive Thoracic spine Muscle bulk / tone/ strength in the bilateral paraspinal muscles normal Vertebral body tender to palpation over Facet loading test positive Lumbar spine: Motor bulk/ tone/ strength lower extremities , thigh and legs : 5/5 Deep tendon reflexes : Normal Knee Jerk. Normal Ankle Jerk . Vertebral body tenderness to palpation over Lumbar Facet Loading Test positive TTP over BL L2-L3, L3-L4, R>L Straight Leg Raise: positive at 30 degrees right side/ left side Gaenslen's Test positive Sacral spine : Severe tenderness over the Sacroiliac joint: right side / left side Range of motion: Flexion of the lumbar spine <60 degrees Range of motion: Extension of the lumbar spine <20 degrees Gaenslen's Test positive Agata test: positive right side / left side Thigh Thrust Test Sacral Thrust Test Assessment and plan: Chronic low back pain secondary to lumbar degenerative disc disease, spondylosis with facet arthropathy without myelopathy Recommendation of BL facet blocks of the medial branches L2-L3, L3-L4 #1. May need a series, up until RFA, for optimal pain relief. Risks, benefits of procedure discussed and pt verbalized understanding. Admits to anticoagulant use or medical history of diabetes. Protocol for discontinuation/ continuation of medications taco procedure discussed. All patient questions answered I have spent less than 30 minutes on patient care today. Dr Crouch was available by phone for the evaluation of this patient. The time was used to review the medical records including relevant urine studies and Prescription history (MAPs), review of the available imaging, evaluation and examination of the patient, coordination of care with the medical staff and if applicable referring physicians, as well as creation of the medical record PQRS Narrative: Hx Alcohol Use (MH) No Home Medications: Ambulatory Orders Aspirin EC [Ecotrin Low Dose] 81 mg PO DAILY 01/20/20 Multivit-Min/FA/Lycopen/Lutein [Centrum Silver Tablet] 1 tab PO DAILY 01/20/20 Simvastatin [Zocor] 20 mg PO HS 01/20/20 amLODIPine [Norvasc] 10 mg PO DAILY 01/20/20 hydroCHLOROthiazide [Hydrodiuril] 25 mg PO DAILY 01/20/20 lisinopriL [Zestril] 20 mg PO BID 01/20/20 Fluticasone/Umeclidin/Vilanter [Trelegy Ellipta 100-62.5-25] 1 inhalation INHALATION DAILY 04/05/21 Albuterol Sulfate [Albuterol Sulfate Hfa] 2 puff PO Q4HR PRN 10/24/21 Dicyclomine [Bentyl] 10 mg PO DAILY PRN 10/24/21 Metoprolol Tartrate [Lopressor] 25 mg PO QAM 10/24/21 Vitamin B Complex 1 each PO DAILY 10/24/21 allopurinoL 300 mg PO DAILY 10/24/21 Controlled Substance Measures - Controlled Substance Measures Is patient prescribed a controlled substance at discharge?: No
== END ==
LOC: PNWHC3 07:38
PROVIDERS: ATTEND Specialist
DX: M47.816 Spondylosis without myelopathy or radiculopathy, lumbar region (principal); M51.36 Other intervertebral disc degeneration, lumbar region; G89.29 Other chronic pain; Z88.5 Allergy status to narcotic agent
CPT/HCPCS: 99211

== ENCOUNTER 2022-02-27 17:32 | Emergency (ER) | payer MEDICARE ==
[2022-02-27 17:46] VITALS: RESP 16
[2022-02-27] MEDS ORDERED: IPRATROPIUM-ALBUTEROL 3 ML NEB INHALATION STA (19:13)
[2022-02-27] MEDS ORDERED: methylPREDNISolone SOD SUCCI 125 MG/2 ML VIAL IV STA (19:13)
--- NOTE | 2022-02-27 19:26 | ED ---
General Adult HPI - General Chief complaint: Shortness of Breath Stated complaint: SOB Time Seen by Provider: 02/27/22 19:00 Source: patient, RN notes reviewed Mode of arrival: wheelchair Limitations: no limitations - History of Present Illness Initial comments: This is a pleasant 76-year-old male who presents to the emergency Department with complaints of worsening shortness of breath. Patient states his symptoms began 3 days ago and do not improve with use of rescue inhaler. Patient states he became significantly short of breath while walking out to the mailbox today. Describes his shortness of breath as feeling like he is "breathing through a straw." Patient reports a history of pulmonary embolism and states this feels similar. He reports wearing his CPAP at night as per usual. States he has been waking up in the morning feeling restless and unrested. Has not had a fever, cough, or chest pain. Denies hemoptysis, diaphoresis, or lower extremity edema (no worse than usual). - Related Data Home Medications Medication Instructions Recorded Confirmed Aspirin EC [Ecotrin Low Dose] 81 mg PO DAILY 01/20/20 02/13/22 Multivit-Min/FA/Lycopen/Lutein 1 tab PO DAILY 01/20/20 02/13/22 [Centrum Silver Tablet] Simvastatin [Zocor] 20 mg PO HS 01/20/20 02/13/22 amLODIPine [Norvasc] 10 mg PO DAILY 01/20/20 02/13/22 hydroCHLOROthiazide [Hydrodiuril] 25 mg PO DAILY 01/20/20 02/13/22 lisinopriL [Zestril] 20 mg PO BID 01/20/20 02/13/22 Fluticasone/Umeclidin/Vilanter 1 inhalation INHALATION DAILY 04/05/21 02/13/22 [Trelegy Ellipta 100-62.5-25] Albuterol Sulfate [Albuterol 2 puff PO Q4HR PRN 10/24/21 02/13/22 Sulfate Hfa] Dicyclomine [Bentyl] 10 mg PO DAILY PRN 10/24/21 02/13/22 Metoprolol Tartrate [Lopressor] 25 mg PO QAM 10/24/21 02/13/22 Vitamin B Complex 1 each PO DAILY 10/24/21 02/13/22 allopurinoL 300 mg PO DAILY 10/24/21 02/13/22 Allergies Allergy/AdvReac Type Severity Reaction Status Date / Time oxycodone AdvReac Nausea & Verified 02/27/22 17:46 Vomiting Review of Systems ROS Statement: Those systems with pertinent positive or pertinent negative responses have been documented in the HPI. ROS Other: All systems not noted in ROS Statement are negative. Past Medical History Past Medical History: COPD, CVA/TIA, Hypertension, Pulmonary Embolus (PE), Sleep Apnea/CPAP/BIPAP Additional Past Medical History / Comment(s): CVA 2004, has double vision. Neuropathy BLE. Hx kidney stones. Uses CPAP. PE 01/2020. History of Any Multi-Drug Resistant Organisms: None Reported Past Surgical History: Back Surgery, Joint Replacement Additional Past Surgical History / Comment(s): Total Rt hip. Colonoscopy. Cataracts bilat. Past Anesthesia/Blood Transfusion Reactions: No Reported Reaction, Motion Sickness Past Psychological History: No Psychological Hx Reported Smoking Status: Never smoker - Past Family History Father Family Medical History: Respiratory Disorder Additional Family Medical History / Comment(s): mesothelioma General Exam Limitations: no limitations General appearance: alert, in no apparent distress Eye exam: Present: normal appearance, PERRL, EOMI. Absent: scleral icterus, conjunctival injection ENT exam: Present: mucous membranes moist Respiratory exam: Present: normal lung sounds bilaterally, other (ambulatory in room without shortness of breath or dyspnea). Absent: respiratory distress, wheezes, rales, rhonchi, stridor, chest wall tenderness, accessory muscle use Cardiovascular Exam: Present: regular rate, normal rhythm, bradycardia, normal heart sounds. Absent: systolic murmur, diastolic murmur, rubs, gallop, clicks GI/Abdominal exam: Present: soft, normal bowel sounds. Absent: distended, tenderness, guarding, rebound, rigid Extremities exam: Present: normal capillary refill, pedal edema (trace pitting edema lower extremities) Neurological exam: Present: alert, oriented X3, normal gait (with cane- h/o CVA ) Psychiatric exam: Present: normal affect, normal mood Skin exam: Present: warm, dry, intact, normal color. Absent: rash Course Vital Signs 02/27/22 02/27/22 02/27/22 17:42 20:11 20:33 Temperature 97.4 F L 97.9 F Pulse Rate 62 61 58 L Respiratory 16 16 Rate Blood Pressure 147/71 120/69 O2 Sat by Pulse 98 98 Oximetry 02/27/22 02/27/22 02/27/22 20:44 21:17 22:40 Temperature Pulse Rate 60 Respiratory 16 16 Rate Blood Pressure O2 Sat by Pulse Oximetry 02/28/22 00:01 Temperature 98 F Pulse Rate 61 Respiratory 16 Rate Blood Pressure 130/78 O2 Sat by Pulse 98 Oximetry - Reevaluation(s) Reevaluation #1: 02/27/22 21:50 Patient updated on results and plan of care to obtain CT of the chest to rule out PE. He is agreeable. 02/28/22 00:25 Patient updated on findings. Discussed discharge home. Patient is agreeable with this plan of care. Tolerating oral intake without difficulty. No shortness of breath at rest. Vital signs are stable. Medical Decision Making - Medical Decision Making This is a very pleasant 76-year-old male with a past medical history of COPD, sleep apnea, and previous PE who presents to the emergency Department with complaints of shortness of breath that he describes as "breathing through a straw." Upon exam, patient is well-appearing and in no acute distress at rest. Lung sounds are clear to auscultation. Given patient's history of COPD, DuoNeb was ordered, but did not change the patient was feeling. Laboratory studies were obtained. D-dimer 1.58. Covid and influenza negative. Troponin and BNP negative. Chest x-ray was unremarkable. CT of the chest was negative for PE. EKG shows no acute changes. Results were discussed with patient. He verbalizes readiness for discharge. Instructed to follow-up with his PCP for a recheck. Strict return parameters were discussed in detail. Patient and spouse verbalized understanding and agreed with this plan. Attending: Sudeep. - Lab Data Result diagrams: 02/27/22 20:08 02/27/22 20:08 Lab Results 02/27/22 02/27/22 02/27/22 Range/Units 19:40 19:40 20:08 WBC 12.3 H (3.8-10.6) k/uL RBC 4.85 (4.30-5.90) m/uL Hgb 14.5 (13.0-17.5) gm/dL Hct 42.4 (39.0-53.0) % MCV 87.4 (80.0-100.0) fL MCH 30.0 (25.0-35.0) pg MCHC 34.3 (31.0-37.0) g/dL RDW 14.0 (11.5-15.5) % Plt Count 275 (150-450) k/uL MPV 7.8 Neutrophils % 75 % Lymphocytes % 16 % Monocytes % 5 % Eosinophils % 1 % Basophils % 1 % Neutrophils # 9.2 H (1.3-7.7) k/uL Lymphocytes # 2.0 (1.0-4.8) k/uL Monocytes # 0.6 (0-1.0) k/uL Eosinophils # 0.2 (0-0.7) k/uL Basophils # 0.1 (0-0.2) k/uL PT (9.0-12.0) sec INR (<1.2) APTT (22.0-30.0) sec D-Dimer (<0.60) mg/L FEU Sodium (137-145) mmol/L Potassium (3.5-5.1) mmol/L Chloride (98-107) mmol/L Carbon Dioxide (22-30) mmol/L Anion Gap mmol/L BUN (9-20) mg/dL Creatinine (0.66-1.25) mg/dL Est GFR (CKD-EPI)AfAm (>60 ml/min/1.73 sqM) Est GFR (CKD-EPI)NonAf (>60 ml/min/1.73 sqM) Glucose (74-99) mg/dL Plasma Lactic Acid Fredrick (0.7-2.0) mmol/L Calcium (8.4-10.2) mg/dL Magnesium (1.6-2.3) mg/dL Total Bilirubin (0.2-1.3) mg/dL AST (17-59) U/L ALT (4-49) U/L Alkaline Phosphatase (38-126) U/L Troponin I (0.000-0.034) ng/mL NT-Pro-B Natriuret Pep pg/mL Total Protein (6.3-8.2) g/dL Albumin (3.5-5.0) g/dL Urine Color Urine Appearance (Clear) Urine pH (5.0-8.0) Ur Specific [place] (1.001-1.035) Urine Protein (Negative) Urine Glucose (UA) (Negative) Urine Ketones (Negative) Urine Blood (Negative) Urine Nitrite (Negative) Urine Bilirubin (Negative) Urine Urobilinogen (<2.0) mg/dL Ur Leukocyte Esterase (Negative) Coronavirus (PCR) Not Detected (Not Detectd) Influenza Type A RNA Not Detected (Not Detectd) Influenza Type B (PCR) Not Detected (Not Detectd) 02/27/22 02/27/22 02/27/22 Range/Units 20:08 20:08 20:08 WBC (3.8-10.6) k/uL RBC (4.30-5.90) m/uL Hgb (13.0-17.5) gm/dL Hct (39.0-53.0) % MCV (80.0-100.0) fL MCH (25.0-35.0) pg MCHC (31.0-37.0) g/dL RDW (11.5-15.5) % Plt Count (150-450) k/uL MPV Neutrophils % % Lymphocytes % % Monocytes % % Eosinophils % % Basophils % % Neutrophils # (1.3-7.7) k/uL Lymphocytes # (1.0-4.8) k/uL Monocytes # (0-1.0) k/uL Eosinophils # (0-0.7) k/uL Basophils # (0-0.2) k/uL PT 10.0 (9.0-12.0) sec INR 0.9 (<1.2) APTT 23.9 (22.0-30.0) sec D-Dimer 1.58 H (<0.60) mg/L FEU Sodium 141 (137-145) mmol/L Potassium 3.7 (3.5-5.1) mmol/L Chloride 104 (98-107) mmol/L Carbon Dioxide 28 (22-30) mmol/L Anion Gap 9 mmol/L BUN 19 (9-20) mg/dL Creatinine 0.80 (0.66-1.25) mg/dL Est GFR (CKD-EPI)AfAm >90 (>60 ml/min/1.73 sqM) Est GFR (CKD-EPI)NonAf 88 (>60 ml/min/1.73 sqM) Glucose 101 H (74-99) mg/dL Plasma Lactic Acid Fredrick 1.1 (0.7-2.0) mmol/L Calcium 9.0 (8.4-10.2) mg/dL Magnesium 2.0 (1.6-2.3) mg/dL Total Bilirubin 0.6 (0.2-1.3) mg/dL AST 34 (17-59) U/L ALT 32 (4-49) U/L Alkaline Phosphatase 100 (38-126) U/L Troponin I (0.000-0.034) ng/mL NT-Pro-B Natriuret Pep pg/mL Total Protein 6.8 (6.3-8.2) g/dL Albumin 4.1 (3.5-5.0) g/dL Urine Color Urine Appearance (Clear) Urine pH (5.0-8.0) Ur Specific [place] (1.001-1.035) Urine Protein (Negative) Urine Glucose (UA) (Negative) Urine Ketones (Negative) Urine Blood (Negative) Urine Nitrite (Negative) Urine Bilirubin (Negative) Urine Urobilinogen (<2.0) mg/dL Ur Leukocyte Esterase (Negative) Coronavirus (PCR) (Not Detectd) Influenza Type A RNA (Not Detectd) Influenza Type B (PCR) (Not Detectd) 02/27/22 02/27/22 02/27/22 Range/Units 20:08 20:08 20:59 WBC (3.8-10.6) k/uL RBC (4.30-5.90) m/uL Hgb (13.0-17.5) gm/dL Hct (39.0-53.0) % MCV (80.0-100.0) fL MCH (25.0-35.0) pg MCHC (31.0-37.0) g/dL RDW (11.5-15.5) % Plt Count (150-450) k/uL MPV Neutrophils % % Lymphocytes % % Monocytes % % Eosinophils % % Basophils % % Neutrophils # (1.3-7.7) k/uL Lymphocytes # (1.0-4.8) k/uL Monocytes # (0-1.0) k/uL Eosinophils # (0-0.7) k/uL Basophils # (0-0.2) k/uL PT (9.0-12.0) sec INR (<1.2) APTT (22.0-30.0) sec D-Dimer (<0.60) mg/L FEU Sodium (137-145) mmol/L Potassium (3.5-5.1) mmol/L Chloride (98-107) mmol/L Carbon Dioxide (22-30) mmol/L Anion Gap mmol/L BUN (9-20) mg/dL Creatinine (0.66-1.25) mg/dL Est GFR (CKD-EPI)AfAm (>60 ml/min/1.73 sqM) Est GFR (CKD-EPI)NonAf (>60 ml/min/1.73 sqM) Glucose (74-99) mg/dL Plasma Lactic Acid Fredrick (0.7-2.0) mmol/L Calcium (8.4-10.2) mg/dL Magnesium (1.6-2.3) mg/dL Total Bilirubin (0.2-1.3) mg/dL AST (17-59) U/L ALT (4-49) U/L Alkaline Phosphatase (38-126) U/L Troponin I <0.012 (0.000-0.034) ng/mL NT-Pro-B Natriuret Pep 32 pg/mL Total Protein (6.3-8.2) g/dL Albumin (3.5-5.0) g/dL Urine Color Yellow Urine Appearance Clear (Clear) Urine pH 5.0 (5.0-8.0) Ur Specific [place] 1.026 (1.001-1.035) Urine Protein Negative (Negative) Urine Glucose (UA) Negative (Negative) Urine Ketones Negative (Negative) Urine Blood Negative (Negative) Urine Nitrite Negative (Negative) Urine Bilirubin Negative (Negative) Urine Urobilinogen <2.0 (<2.0) mg/dL Ur Leukocyte Esterase Negative (Negative) Coronavirus (PCR) (Not Detectd) Influenza Type A RNA (Not Detectd) Influenza Type B (PCR) (Not Detectd) - EKG Data EKG shows normal: sinus rhythm Rate: bradycardia EKG Comments: EKG obtained at 1750 with sinus bradycardia, left axis deviation, possible left ventricular hypertrophy, and possible septal myocardial infarction. Ventricular rate 59, TN interval 188, QRS duration 102, QT/QTc 421/420. Interpretation abnormal ECG. I see no evidence of acute ischemic changes, ST segment elevation or depression. - Radiology Data Radiology results: report reviewed, image reviewed Interpreted by me: Chest x-ray by my interpretation shows no focal area of consolidation or infiltrate. Two-view chest x-ray was obtained. Report was reviewed in its entirety. Impression per Dr. Rodriges is no acute cardiopulmonary disease such process. Contrast CT of the chest to rule out PE was obtained. Report was reviewed in its entirety. Impression per Dr. Rodriges is #1. No evidence of pulmonary embolism. #2. No evidence of focal consolidation or acute airspace process. Disposition Clinical Impression: COPD (chronic obstructive pulmonary disease) Disposition: HOME SELF-CARE Condition: Stable Instructions (If sedation given, give patient instructions): COPD (Chronic Obstructive Pulmonary Disease) (ED) Additional Instructions: Continue your home medications as prescribed. Avoid vigorous or strenuous activity. Follow-up with your PCP for a recheck. Call the office in the morning. Return to the emergency department with any new, worsening, or concerning symptoms. Is patient prescribed a controlled substance at d/c from ED?: No Referrals: Rnady Frye MD [Primary Care Provider] - 1-2 days Time of Disposition: 00:24
--- NOTE | 2022-02-27 19:51 | XR ---
EXAMINATION TYPE: XR chest 2V DATE OF EXAM: 02/27/2022 7:28 PM COMPARISON: Chest radiographs from 01/20/2020 TECHNIQUE: XR chest 2V Frontal and lateral views of the chest. CLINICAL INDICATION:Male, 76 years old with history of difficulty breathing; FINDINGS: Lungs/Pleura: There is no evidence of pleural effusion, focal consolidation, or pneumothorax. Pulmonary vascularity: Unremarkable. Heart/mediastinum: Cardiomediastinal silhouette is prominent in size. Musculoskeletal: No acute osseous pathology. IMPRESSION: No acute cardiopulmonary disease/process.
[2022-02-27 20:31] LABS: Basophils # (A) 0.1 k/uL (0-0.2); Basophils % (A) 1 %; Eosinophils # (A) 0.2 k/uL (0-0.7); Eosinophils % (A) 1 %; HCT 42.4 % (39.0-53.0); HGB 14.5 gm/dL (13.0-17.5); Lymphocytes % (A) 16 %; MCHC 34.3 g/dL (31.0-37.0); MCV 87.4 fL (80.0-100.0); Mean Platelet Volume 7.8; Monocytes # (A) 0.6 k/uL (0-1.0); Monocytes % (A) 5 %; Neutrophils # (A) 9.2 k/uL (1.3-7.7); Neutrophils % (A) 75 %; Platelet Count 275 k/uL (150-450); RBC 4.85 m/uL (4.30-5.90); WBC 12.3 k/uL (3.8-10.6)
[2022-02-27 20:41] LABS: ALT 32 U/L (4-49); AST 34 U/L (17-59); African American GFR (CKD) >90 (>60 ml/min/1.73 sqM); Albumin 4.1 g/dL (3.5-5.0); Alkaline Phosphatase 100 U/L (38-126); Anion Gap 9 mmol/L; Blood Urea Nitrogen 19 mg/dL (9-20); Carbon Dioxide 28 mmol/L (22-30); Chloride 104 mmol/L (98-107); Glucose 101 mg/dL (74-99); Non-African American GFR(CKD) 88 (>60 ml/min/1.73 sqM); Potassium 3.7 mmol/L (3.5-5.1); Sodium 141 mmol/L (137-145); Total Bilirubin 0.6 mg/dL (0.2-1.3); Total Protein 6.8 g/dL (6.3-8.2)
[2022-02-27 20:48] LABS: INR 0.9 (<1.2); Partial Thromboplastin Time 23.9 sec (22.0-30.0)
[2022-02-27 21:25] LABS: Appearance,Urine Clear (Clear); Bilirubin,Urine Negative (Negative); Blood,Urine Negative (Negative); Color,Urine Yellow; Glucose,Urine (UA) Negative (Negative); Ketones,Urine Negative (Negative); Leukocyte Esterase,Urine Negative (Negative); Nitrite,Urine Negative (Negative); Protein,Urine Negative (Negative); Specific Gravity,Urine 1.026 (1.001-1.035); Urobilinogen,Urine <2.0 mg/dL (<2.0)
--- NOTE | 2022-02-27 22:21 | CT ---
EXAMINATION TYPE: CT chest angio for PE CT DLP: 1067.2 mGycm, Automated exposure control for dose reduction was used. DATE OF EXAM: 02/27/2022 10:02 PM COMPARISON: Chest radiograph from same day. CLINICAL INDICATION:Male, 76 years old with history of shortness of breath, h/o PE; shortness of becca th, h/o PE TECHNIQUE/CONTRAST: CTA scan of the thorax is performed with IV Contrast, patient injected with 100ml mL of Isovue 370, p ulmonary embolism protocol. MIP images are created and reviewed. FINDINGS: Pulmonary Artery: There is no evidence for a filling defect within the pulmonary vasculature to sugge st acute pulmonary embolism. The pulmonary artery is of normal size. Lungs/Pleura: No evidence of focal consolidation, pleural effusion or pneumothorax. Airway: Large airways are patent. Heart: Heart is within normal limits for size.. Vasculature: No evidence of aortic aneurysm. Mediastinum: No gross evidence of adenopathy. Musculoskeletal: Moderate degenerative disc disease changes are present throughout the thoracolumbar spine. Soft Tissues: Bilateral gynecomastia changes. Lower neck: No significant findings. Upper Abdomen: Diffuse low-attenuation to the liver parenchyma. Hepatic Caudate lobe cyst. IMPRESSION: 1. No evidence of pulmonary embolism. 2. No evidence of focal consolidation or acute airspace process.1
[2022-02-28 00:07] VITALS: BP 130/78; PULSE 61; TEMP 98
== END 2022-02-28 00:32 | disposition home or self-care (01) ==
LOC: EC 17:32
DX: J44.9 Chronic obstructive pulmonary disease, unspecified (principal); Z86.73 Personal history of transient ischemic attack (TIA), and cerebral infarction without residual deficits; I10 Essential (primary) hypertension; Z88.5 Allergy status to narcotic agent; Z79.82 Long term (current) use of aspirin; Z79.899 Other long term (current) drug therapy
CPT/HCPCS: 99285 ×2; 96374 ×2; 36415; 94640; 93005; 85379; 83880; 80053; 83605; 83735; 84484; 85025; 85610; 85730; 81003; 87502; 87635; 71046; 71275; J2930; Q9967

== ENCOUNTER 2022-03-15 06:49 | Day surgery (SDC) | payer MEDICARE ==
[2022-03-12 15:51] VITALS: BMI 40.6
[2022-03-15 07:27] VITALS: TEMP 98
[2022-03-15] MEDS ORDERED: LACTATED RINGERS 1,000 ML IV SCH (07:45)
[2022-03-15] MEDS ORDERED: ROPIVACAINE 5 MG/ML 20 ML AMPULE ONE (07:56)
[2022-03-15] MEDS ORDERED: TRIAMCINOLONE ACETONIDE 40 MG/ML 1 ML VIAL ONE (07:56)
--- NOTE | 2022-03-15 08:23 | P.PCN ---
Date of Procedure: 03/15/22 Description of Procedure: DESCRIPTION OF PROCEDURE(S): PROCEDURE: Bilateral lumbar medial branch block L2-L3, L3-L4 with fluoroscopy PREOPERATIVE DIAGNOSIS : 1- Lumbar spondylosis with Facet Arthropathy without myelopathy . 2- Lumber degenerative disc disease POSTOPERATIVE DIAGNOSIS: 1- Lumbar spondylosis with Facet Arthropathy without myelopathy . 2- Lumber degenerative disc disease PROCEDURE: Diagnostic bilateral L2-L3, L3-L4 medial branch block under fluoroscopy ANESTHESIA: No Sedation; Local anesthesia with 1% Lidocaine Fluoroscopic images saved and sort and electronic medical record COMPLICATION: None. IV FLUIDS: None PROCEDURE INDICATION: Chronic low back pain secondary to Facet arthropathy unresponsive to conservative treatment. has had previous laminectomy at L4 to L5. He's had 2 lumbar epidural steroid injections at L2-3 and has had relief of right sided radicular pain however pain has returned at about 50% of its intensity. He is interested in being evaluated by a spine surgeon. PROCEDURE DESCRIPTION: the patient was seen and identified in the preop holding area , risks and benefits and possible complications of the procedure and alternative were discussed with the patient, and the patient agreed to proceed with the procedure and signed the consent IV was started and vital signs monitored during the procedure and fluoroscopy was used to maximize the benefit and accuracy of the needle placement, and sedation was given to decrease patient anxiety, patient was taken to the procedure room and placed in prone position vital signs monitored in the back prepped with chlorhexidine X3 then under strict sterile technique using a right oblique fluoroscopy ,the junction of the transverse process and the superior articulating process of the right L2-L3, [id number] which corresponding to the fluoroscopy image of the eye of the Jensen dog on the block side for the medial branches and subsequently , a 22-gauge Quincke-type needle was used and each time placed at the junction of the base of the transverse process and the superior articular process at the appropriate level L2-L3, L3-L4 pedicle. The needle was advanced until the periosteum contacted, needle placement confirmed with AP oblique and lateral view and after appropriate needle placement confirmed, and after negative aspiration for heme and CSF and there was no paresthesia 1-1/2 mL of ropivacaine 0.5% mixed with 40 mg Kenalog , then half mL injected at each level after negative aspiration the needle subsequently removed and the same procedure repeated for the left side at left side at L2- L3, L3-L4 levels. At the end of the procedure and the needles removed and a bandage applied after the skin was cleaned the cleaning solution patient taken to recovery room in sta ble condition and monitors in the recovery room for 20-30 minutes and discharged home in stable condition after discharge criteria met and patient will return for repeat procedure in 2-4 weeks. We'll refer patient to Dr. Childers for evaluation
[2022-03-15 08:27] VITALS: BP 119/66; PULSE 57; RESP 18
--- NOTE | 2022-03-15 08:35 | FL ---
Intraoperative/procedural fluoroscopic services were provided for bilateral lumbar facet block. Total fluoroscopy time is 15 seconds with a total of 4 submitted images to PACS. Please see the operative note for further details.
== END 2022-03-15 08:46 | disposition home or self-care (01) ==
LOC: ORPAIN 06:49
PROVIDERS: ATTEND Anesthesiology
DX: M51.36 Other intervertebral disc degeneration, lumbar region (principal); M47.816 Spondylosis without myelopathy or radiculopathy, lumbar region; G89.29 Other chronic pain; Z88.5 Allergy status to narcotic agent
CPT/HCPCS: 64493; 64494 ×2; J3301; J2795

== ENCOUNTER 2022-05-24 08:00 | Day surgery (SDC) | payer MEDICARE ==
[~2022-05-24 08:00] MED LIST changes: -IOPAMIDOL M200 10 ML VIAL ONE; -LACTATED RINGERS 1,000 ML BAG IV ONE; -MIDAZOLAM 2 MG/2 ML VIAL ONE; -fentaNYL (PF) 50 MCG/ML 2 ML AMP ONE; -methylPREDNISolone ACETATE 40 MG/ML 1 ML VIAL ONE
[2022-05-24 08:48] VITALS: TEMP 97.4
[2022-05-24] MEDS ORDERED: ROPIVACAINE 5 MG/ML 20 ML AMPULE ONE (09:39)
[2022-05-24] MEDS ORDERED: TRIAMCINOLONE ACETONIDE 40 MG/ML 1 ML VIAL ONE (09:39)
--- NOTE | 2022-05-24 09:56 | P.PCN ---
Date of Procedure: 05/24/22 Surgeon: Aaron Miranda Pathology: none sent Condition: stable Disposition: PACU Description of Procedure: PREOPERATIVE DIAGNOSIS : 1- Lumbar spondylosis with Facet Arthropathy without myelopathy . 2- Lumber degenerative disc disease POSTOPERATIVE DIAGNOSIS: 1- Lumbar spondylosis with Facet Arthropathy without myelopathy . 2- Lumber degenerative disc disease PROCEDURE: Diagnostic bilateral L2-3 , and L3-4 medial branch block under fluoroscopy Physician: Aaron Miranda MD ANESTHESIA: Local only with 1% lidocaine. EBL: Negligible COMPLICATION: None. PROCEDURE INDICATION: Chronic low back pain secondary to Facet arthropathy unresponsive to conservative treatment. PROCEDURE DESCRIPTION: the patient was seen and identified in the preop holding area , risks and benefits and possible complications of the procedure and alternatives were discussed with the patient, and the patient agreed to proceed with the procedure and signed the consent. IV was started and vital signs monitored during the procedure and fluoroscopy was used to maximize the benefit and accuracy of the needle placement, sedation was given to decrease patient anxiety, patient was taken to the procedure room and placed in prone position vital signs monitored. The patient was brought into the procedure room and placed in prone position. Skin was prepped with Chloraprep and draped in a sterile manner. Lidocaine 1% was used to numb the skin up at the target points that were chosen as follows: , for the L2 ,L3 medial branches the target points were the connection between the transverse process and the superior articular process of L1,L2, and L3 r espectively on the oblique views of fluoroscopy. I used 22-gauge 5 inch Quincke spinal needles for this procedure and after contacting bone at the target points mentioned above I injected 1 mL of a mixture of Kenalog 40 mg +5 MLS of Ropivacaine 0.5% PF . Patient tolerated procedure well. At the end of the procedure the needles removed and a bandage applied after the skin was cleaned the cleaning solution. patient was then taken to the recovery room in stable condition and monitored in the recovery room for 20-30 minutes and discharged home in stable condition after discharge criteria met . A copy of the needle placement picture was saved to the C-arm machine.
[2022-05-24 10:09] VITALS: RESP 20
[2022-05-24 10:17] VITALS: BP 119/67; PULSE 49
--- NOTE | 2022-05-24 10:18 | FL ---
EXAMINATION TYPE: FL guided pain mgmt statistic DATE OF EXAM: 05/24/2022 HISTORY: Fluoroscopy time 21 SEC FLUORO. [id number] DAP. of fluoroscopy provided. IMPRESSION: 1. Fluoroscopy time.
== END 2022-05-24 10:21 ==
LOC: ORPAIN 08:00
PROVIDERS: ATTEND Anesthesiology
DX: M51.36 Other intervertebral disc degeneration, lumbar region (principal); M47.816 Spondylosis without myelopathy or radiculopathy, lumbar region; G89.29 Other chronic pain; G47.33 Obstructive sleep apnea (adult) (pediatric); E66.01 Morbid (severe) obesity due to excess calories; Z68.41 Body mass index [BMI] 40.0-44.9, adult; Z88.8 Allergy status to other drugs, medicaments and biological substances
CPT/HCPCS: 64493; 64494; 99152; J3301; J2795

== ENCOUNTER → 2022-06-10 | Outpatient (CLI) | payer MEDICARE ==
--- NOTE | 2022-06-10 13:45 | P.PN ---
Subjective Progress Note Date: 06/10/22 A 76 yr old male with a history of severe and chronic LBP secondary to lumbar DDD and spondylosis with facet arthropathy without myelopathy presents today for evaluation s/p BL facet block of the medial branches L2-L3, L3-L4 #2. Pt states he experienced 90 % pain relief x 2 days s/p procedure. Pain level is provoked at 7 /10 in intensity, constant, localized in the lumbar spine, sharp in character w shooting towards the RLE. Pain is provoked by bending, twisting, lifting. Pain is alleviated with PT x 10 wks integrated w massage in Winter 2021, use of a TENS unit in PT, use of a cane for ambulation, heating pad use, repositioning and rest. Interventional pain procedures completed include BL MBB L2-L4 x2 Patient is currently on DENIES Patient denies any side effects of the medication(s), denies excessive drowsiness or sleepiness, denies suicidal ideation and reports that the current pain medication is helping to control the pain and improve activities of daily living. Patient denies any motor or sensory deficits. Patient denies any fever or night sweats, denies any change in the bowel movements or urination. Physical Examination: -Constitutional: Cooperative. Not in acute distress . - Neurologic: Cranial nerve II to XII intact. No focal neurological deficits. - Psychatric: Alert & oriented x 3. Matching mood & appropriate affect. Judgment and insight intact. - Musculoskeletal: Cervical spine: Muscle bulk/ tone/ strength in the bilateral upper extremities normal Vertebral body tenderness to palpation over Spurling test positive Distraction test positive Facet loading test positive Thoracic spine Muscle bulk / tone/ strength in the bilateral paraspinal muscles normal Vertebral body tender to palpation over Facet loading test positive Lumbar spine: Motor bulk/ tone/ strength lower extremities , thigh and legs : 5/5 Deep tendon reflexes : Normal Knee Jerk. Normal Ankle Jerk . Vertebral body tenderness to palpation over Lumbar Facet Loading Test positive TTP over BL L2-L3, L3-L4 facets Straight Leg Raise: positive at 30 degrees right side/ left side Gaenslen's Test positive Sacral spine : Severe tenderness over the Sacroiliac joint: right side / left side Range of motion: Flexion of the lumbar spine <60 degrees Range of motion: Extension of the lumbar spine <20 degrees Gaenslen's Test positive Agata test: positive right side / left side Thigh Thrust Test Sacral Thrust Test Assessment and plan: Chronic LBP secondary to lumbar DDD, spondylosis with facet arthropathy without myelopathy Patient had more than 90% improvement of the pain level after diagnostic medial branch block Recommendation of RFA BL facet block of the medial branches L2-L3, L3-L4 PQRS Narrative: Hx Alcohol Use (MH) No Home Medications: Ambulatory Orders Aspirin EC [Ecotrin Low Dose] 81 mg PO DAILY 01/20/20 Multivit-Min/FA/Lycopen/Lutein [Centrum Silver Tablet] 1 tab PO DAILY 01/20/20 Simvastatin [Zocor] 20 mg PO HS 01/20/20 amLODIPine [Norvasc] 10 mg PO DAILY 01/20/20 hydroCHLOROthiazide [Hydrodiuril] 25 mg PO DAILY 01/20/20 lisinopriL [Zestril] 20 mg PO BID 01/20/20 Fluticasone/Umeclidin/Vilanter [Trelegy Ellipta 100-62.5-25] 1 inhalation INHALATION DAILY 04/05/21 Albuterol Sulfate [Albuterol Sulfate Hfa] 2 puff PO Q4HR PRN 10/24/21 Dicyclomine [Bentyl] 10 mg PO DAILY PRN 10/24/21 Metoprolol Tartrate [Lopressor] 25 mg PO QAM 10/24/21 Vitamin B Complex 1 each PO DAILY 10/24/21 allopurinoL 300 mg PO DAILY 10/24/21 Controlled Substance Measures - Controlled Substance Measures Is patient prescribed a controlled substance at discharge?: No Objective - Vital Signs Vital signs: Intake & Output 06/09/22 06/10/22 06/10/22 18:59 06:59 18:59 Weight 136.078 kg
[2022-06-10 15:03] VITALS: BP 152/75; PULSE 95; RESP 18; TEMP 98
== END ==
LOC: PNWHC3 13:14
PROVIDERS: ATTEND Specialist
DX: M51.36 Other intervertebral disc degeneration, lumbar region (principal); M47.816 Spondylosis without myelopathy or radiculopathy, lumbar region; G89.29 Other chronic pain; Z79.82 Long term (current) use of aspirin; Z88.5 Allergy status to narcotic agent
CPT/HCPCS: 99211

== ENCOUNTER 2022-07-19 06:50 | Day surgery (SDC) | payer MEDICARE ==
[2022-07-18 08:53] VITALS: BMI 41.5
[2022-07-19 07:10] VITALS: TEMP 98.3
[2022-07-19] MEDS ORDERED: MIDAZOLAM 2 MG/2 ML VIAL ONE (07:40)
[2022-07-19] MEDS ORDERED: fentaNYL (PF) 50 MCG/ML 2 ML AMP ONE (07:40)
[2022-07-19] MEDS ORDERED: ROPIVACAINE 5 MG/ML 20 ML AMPULE ONE (07:40)
--- NOTE | 2022-07-19 08:05 | P.PCN ---
Date of Procedure: 07/19/22 Description of Procedure: PREOPERATIVE DIAGNOSIS: Lumbar Facet Arthropathy without myelopathy POSTOPERATIVE DIAGNOSIS: Same PROCEDURES: Bilateral Radiofrequency thermocoagulation of L2-L3, L3-L4 medial branches, with fluoroscopic guidance ANESTHESIA: See anesthesia record Imaging: Fluoroscopy was used, images where saved to the medical record PROCEDURE INDICATION: The patient with low back pain secondary to lumbar facet arthropathy who had more than 50% relief of pain with previous diagnostic lumbar medial branch block with local anesthetic. PROCEDURE DESCRIPTION / TECHNIQUE: The patient was seen and identified in the preoperative area. Risks, benefits, complications, including but not limited to risk of infection, bleeding, allergic reactions to the medications and no complete pain relief, and alternatives were discussed with the patient, the patient agreed to proceed with the procedure and signed the consent. IV was started. Vital signs remained stable throughout the procedure. Patient was taken to the OR and time out was completed. The patient was placed in the prone position on the procedure table. The lumber area was prepped and draped in the usual sterile fashion. Vital signs were closely monitored during the procedure. IV sedation was used during the procedure to decrease patient anxiety. Using AP and then oblique fluoroscopy, the eye of the Jensen dog corresponding to the connection between the superior and transverse articular processes of L2, L3 and L4, marked, and localized with 1% lidocaine. Subsequently, a 20 guage10 0-mm radiofrequency cannula with a 10-mm active tip was advanced guided by fluoroscopy to the junction of the pedicle and transverse process of each identified level. Each site then underwent sensory testing at 50 Hz and 0 to 1 volt and motor testing at 2.5 Hz and 0 to 3 volt with local stimulation, no radicular symptoms sensed by the patient and no obvious motor stimulation noted. Thereafter the tested sites underwent radiofrequency thermocoagulation at 80 degrees celsius for 90 seconds after injecting 1 ml of PF lidocaine 1%. Then after the thermocoagulation was done, 1 ml of the block solution containing ropivaciane 0.5% was injected at the lesioned sites after negative aspiration of CSF and blood and with no paresthesias. Cannulas were retracted. At the end of the procedure, the skin was cleansed and bandages were applied. COMPLICATIONS: No acute complications. DISPOSITION / PLANS: The patient was placed in a supine position and transferred to the recovery area in a stable condition for observation and was discharged from the recovery room after meeting discharge criteria. Home discharge instructions given to the patient by the staff. The patient was reexamined prior to discharge. Patient will follow up as directed.
[2022-07-19] MEDS ORDERED: IV FLUID CONTINUATION 1,000 ML IV ONE (08:08)
--- NOTE | 2022-07-19 08:23 | FL ---
EXAMINATION TYPE: FL guidance operating room DATE OF EXAM: 07/19/2022 HISTORY: Fluoroscopy time Total dose area product (DAP) in uGy*m?, mGy*cm? (or similar): .24012 IMPRESSION: 1. Fluoroscopy time.
[2022-07-19 08:25] VITALS: BP 95/65; PULSE 52; RESP 14
== END 2022-07-19 08:43 | disposition home or self-care (01) ==
LOC: ORPAIN 06:50
PROVIDERS: ATTEND Hospitalist
DX: M47.26 Other spondylosis with radiculopathy, lumbar region (principal); I10 Essential (primary) hypertension; E78.5 Hyperlipidemia, unspecified; J44.9 Chronic obstructive pulmonary disease, unspecified; Z86.73 Personal history of transient ischemic attack (TIA), and cerebral infarction without residual deficits; Z88.5 Allergy status to narcotic agent; Z79.899 Other long term (current) drug therapy
CPT/HCPCS: 64636 ×2; 64635; J2250; J3010; J2795

== ENCOUNTER → 2022-09-02 | Outpatient (CLI) | payer MEDICARE ==
[2022-09-02 08:56] VITALS: BP 142/77; PULSE 58; RESP 16; TEMP 97.7
--- NOTE | 2022-09-02 14:20 | P.PAINPG ---
PQRS Measure Charge Sheet Comment: A 77 yr old male with a history of severe and chronic LBP secondary to lumbar DDD and spondylosis with facet arthropathy without myelopathy presents today for evaluation s/p BL RFA L2-L3, L3-L4. Pt states he experienced 60-70 % pain relief s/p procedure. Pain level is provoked at 7/10 in intensity, constant, localized in the lumbar spine, dull/ achy in character w shooting towards . Pain is provoked by sitting/ standing for periods of 30 min or more. Pain is alleviated with PT x 6 wks in Feb 2022 without relief, heat, medications, use of a cane, repositioning and rest. Interventional pain procedures completed include BL RFA L1-L3, DOMENICO R paramedian L2-L3 x1 Patient is currently on Tyl Patient denies any side effects of the medication(s), denies excessive drowsiness or sleepiness, denies suicidal ideation and reports that the current pain medication is helping to control the pain and improve activities of daily living. Patient denies any motor or sensory deficits. Patient denies any fever or night sweats, denies any change in the bowel movements or urination. Physical Examination: -Constitutional: Cooperative. Not in acute distress . - Neurologic: Cranial nerve II to XII intact. No focal neurological deficits. - Psychatric: Alert & oriented x 3. Matching mood & appropriate affect. Judgm ent and insight intact. - Musculoskeletal: Cervical spine: Muscle bulk/ tone/ strength in the bilateral upper extremities normal Vertebral body tenderness to palpation over Spurling test positive Distraction test positive Facet loading test positive TTP Thoracic spine Muscle bulk / tone/ strength in the bilateral paraspinal muscles normal Vertebral body tender to palpation over Facet loading test positive TTP Lumbar spine: Motor bulk/ tone/ strength lower extremities , thigh and legs : 5/5 Deep tendon reflexes : Normal Knee Jerk. Normal Ankle Jerk . Vertebral body tenderness to palpation over Grant Test positive BL taut bands w twitch response over L1-L5 Lumbar Facet Loading Test positive Straight Leg Raise: positive at 30 degrees right side/ left side Gaenslen's Test positive Sacral spine : Severe tenderness over the Sacroiliac joint: right side / left side Range of motion: Flexion of the lumbar spine <60 degrees Range of motion: Extension of the lumbar spine <20 degrees Gaenslen's Test positive right side / left side Agata test: positive right side / left side Thigh Thrust Test positive right side / left side Sacral Thrust Test positive right side / left side Assessment and plan: Chronic LBP secondary to lumbar DDD, spondylosis with facet arthropathy without myelopathy Recommendation of . Risks, benefits of procedure discussed and pt verbalized understanding. Admits to anticoagulant use or medical history of diabetes. Protocol for discontinuation/ continuation of medications taco procedure discussed. Minimal anesthesia provided, if clinically indicated, consisting of Versed and Fentanyl. All questions answered. I have spent less than 30 minutes on patient care today. Dr Crouch was available by phone for the evaluation of this patient. The time was used to review the medical records including relevant urine studies and Prescription history (MAPs), review of the available imaging, evaluation and examination of the patient, coordination of care with the medical staff and if applicable referring physicians, as well as creation of the medical record PQRS Narrative: Hx Alcohol Use (MH) No Home Medications: Ambulatory Orders Aspirin EC [Ecotrin Low Dose] 81 mg PO DAILY 01/20/20 Multivit-Min/FA/Lycopen/Lutein [Centrum Silver Tablet] 1 tab PO DAILY 01/20/20 Simvastatin [Zocor] 20 mg PO HS 01/20/20 amLODIPine [Norvasc] 10 mg PO DAILY 01/20/20 hydroCHLOROthiazide [Hydrodiuril] 25 mg PO DAILY 01/20/20 lisinopriL [Zestril] 20 mg PO BID 01/20/20 Fluticasone/Umeclidin/Vilanter [Trelegy Ellipta 100-62.5-25] 1 inhalation INHALATION DAILY 04/05/21 Metoprolol Tartrate [Lopressor] 25 mg PO QAM 10/24/21 Vitamin B Complex 1 each PO DAILY 10/24/21 allopurinoL 300 mg PO DAILY 10/24/21 Albuterol Inhaler [Ventolin Hfa Inhaler] 1 - 2 puff INHALATION Q6H PRN 05/20/22 Controlled Substance Measures - Controlled Substance Measures Is patient prescribed a controlled substance at discharge?: No
== END ==
LOC: PNWHC3 07:52
PROVIDERS: ATTEND Specialist
DX: M51.36 Other intervertebral disc degeneration, lumbar region (principal); M47.816 Spondylosis without myelopathy or radiculopathy, lumbar region; G89.29 Other chronic pain; Z88.5 Allergy status to narcotic agent; Z79.82 Long term (current) use of aspirin
CPT/HCPCS: 99211

== ENCOUNTER → 2022-10-05 | Outpatient (CLI) | payer MEDICARE ==
--- NOTE | 2022-10-05 14:40 | MR ---
EXAMINATION TYPE: MR brain wo/w con DATE OF EXAM: 10/05/2022 8:16 AM CLINICAL INDICATION:Male, 77 years old with history of R51 severe headaches; Double vision, headaches COMPARISON: MRI same day. TECHNIQUE: Multi planar, multi sequence imaging was performed through the brain including: T1, T2, In version recovery, susceptibility weighted imaging and gradient echo imaging and Diffusion weighted im aging. The patient was then given intravenous contrast and multi planar, T1 fat-saturation images wer e obtained. IV Contrast: 14 cc Gadavist FINDINGS: Right lateral ventricle measuring 5 mm lesion which is isosignal to smith matter on T1-weighted imagin g and high signal on FLAIR imaging. The smith-white junctions, ventricular system, basal cisterns appe ar unremarkable. Diffusion-weighted imaging shows no evidence of restricted diffusion to suggest acut e/subacute infarct. Intracranial arterial flow voids are maintained. Midline structures show no abnor mality. Scattered foci of high T2 signal intensity are seen within the periventricular white matter. The susceptibility weighted images do not reveal any evidence for micro-hemorrhage. After administrat ion of gadolinium, no abnormal enhancement is seen. Loss of normal flow void within the left vertebral artery inferiorly. The bone marrow signal is within normal limits. Paranasal sinuses and mastoid air cells: No significant paranasal sinus disease. Visualized orbits: Bilateral aphakia. IMPRESSION: 1. No evidence of acute/subacute infarct, or abnormal enhancement. 2. Nonspecific white matter changes, likely related to small vessel ischemic disease 3. Loss of the normal flow void within the left vertebral artery inferiorly. Further evaluation of th e left vertebral artery with CTA/MRA of the neck recommended. 4. 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
--- NOTE | 2022-10-05 14:40 | MR ---
EXAMINATION TYPE: MR angio head wo con DATE OF EXAM: 10/05/2022 8:16 AM CLINICAL INDICATION:Male, 77 years old with history of R51 severe headaches; Double vision, headaches COMPARISON: MR brain 10/05/2022 Technical: 3-D [id number] Axial with MIP reconstruction created on a separate workstation.. IV Contrast: None Findings: Vertebral arteries: The vertebral arteries are patent. Vertebral arteries are: There is nonvisualization of the distal left vertebral artery intracranial po rtion in the most inferior aspect of the [id number] which becomes opacified near its confluence wi th the right vertebral artery likely secondary to back filling. Basilar artery: The basilar artery is intact. The basilar artery bifurcation is normal. Internal Carotid arteries: The cervical, petrous, cavernous and supraclinoid segments are normal. WILBERT: Patent with no evidence of aneurysm. ACOM: Present without evidence of aneurysm. MCA: Patent with no evidence of aneurysm. COMMERCIAL TITLE EXAMINER: Patent with no evidence of aneurysm. PCOM: Normal caliber bilaterally. IMPRESSION: 1. 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 Further evaluation with CTA/MRA neck recommended. 2. No evidence of aneurysm or significant stenosis of the remaining vessels.
== END | disposition home or self-care (01) ==
LOC: RADMRIMAIN 07:25
PROVIDERS: ATTEND Internal Medicine
DX: I65.02 Occlusion and stenosis of left vertebral artery (principal); R90.82 White matter disease, unspecified; G93.89 Other specified disorders of brain
CPT/HCPCS: 70544; 70553; A9585

== ENCOUNTER 2022-10-24 07:10 | Day surgery (SDC) | payer MEDICARE ==
[2022-10-24 07:49] VITALS: TEMP 97.2
[2022-10-24] MEDS ORDERED: ROPIVACAINE 5 MG/ML 20 ML AMPULE ONE (08:14)
[2022-10-24] MEDS ORDERED: methylPREDNISolone ACETATE 40 MG/ML 1 ML VIAL ONE (08:14)
--- NOTE | 2022-10-24 08:23 | P.PCN ---
Date of Procedure: 10/24/22 Procedure(s) Performed: Procedure= trigger point injections lumbar paraspinal muscles bilaterally , 4 on the right side from L1 to L5 , and 3 on the left side from L1 to L5 Preoperative diagnosis= 1-myofascial pain syndrome lumbar paraspinal muscles 2-lumbar degenerative disc disease 3-lumbar facet arthropathy Postoperative diagnosis=Same as preop Diagnosis . Complication = none Condition= stable Anesthesia= none Indication for the procedure= patient complaining of low back pain , examination was positive for multiple trigger point in the lumbar paraspinal muscles bilaterally and patient diagnosed with myofascial pain syndrome and is here to have trigger point injections Description of the procedure= procedure risk and benefits discussed with the patient, including but not limited, risk of infection and bleeding, and ALLERGIC reaction to the medication and not complete pain relief and patient agreed with the preceding patient taken to the operating room, placed in sitting position or standard monitors applied to the patient then after induction of anesthesia b ack prepped with chlorhexidine 3 times , then under sterile technique each of the trigger point that was marked in the preop holding area 4 on the right side lumbar paraspinal muscles and 3 on the left side lumbar paraspinal muscles each one of them injected with the 2 mL of the mixture of ropivacaine 0.5% 14 ML mixed with 40 mg of Depo-Medrol and 2 mL of the mixture injected at each trigger point after negative aspiration, using 25-gauge needle, injection done after negative aspiration under was no paresthesia during the injection patient tolerated the procedure well without any complications and he will follow up in the pain clinic in a few weeks
[2022-10-24 08:30] VITALS: BP 117/78; PULSE 78; RESP 18
== END 2022-10-24 08:45 | disposition home or self-care (01) ==
LOC: ORPAIN 07:10
PROVIDERS: ATTEND Specialist
DX: M79.18 Myalgia, other site (principal); M51.36 Other intervertebral disc degeneration, lumbar region; M47.816 Spondylosis without myelopathy or radiculopathy, lumbar region; Z79.899 Other long term (current) drug therapy; Z79.82 Long term (current) use of aspirin
CPT/HCPCS: 20553; J1030; J2795

== ENCOUNTER → 2022-12-19 | Day surgery (SDC) | payer MEDICARE ==
[~2022-12-19] MED LIST changes: +ROPIVACAINE 5MG/ML 20ML VIAL ONE; +methylPREDNISolone ACETATE 40 MG/ML 1 ML VIAL ONE
[2022-12-19 06:50] VITALS: RESP 16; TEMP 98.2
--- NOTE | 2022-12-19 07:14 | P.PCN ---
Date of Procedure: 12/19/22 Procedure(s) Performed: Procedure= trigger point injections lumbar paraspinal muscles bilaterally , 4 on the right side from L2 to L5 , and 2 on the left side from L2 to L5 Preoperative diagnosis= 1-myofascial pain syndrome lumbar paraspinal muscles 2-lumbar degenerative disc disease 3-lumbar facet arthropathy Postoperative diagnosis=Same as preop Diagnosis . Complication = none Condition= stable Anesthesia= none Indication for the procedure= patient complaining of low back pain , examination was positive for multiple trigger point in the lumbar paraspinal muscles bilaterally and patient diagnosed with myofascial pain syndrome and is here to have trigger point injections Description of the procedure= procedure risk and benefits discussed with the patient, including but not limited, risk of infection and bleeding, and ALLERGIC reaction to the medication and not complete pain relief and patient agreed with the preceding patient taken to the operating room, placed in sitting position or standard monitors applied to the patient then after induction of anesthesia b ack prepped with chlorhexidine 3 times , then under sterile technique each of the trigger point that was marked in the preop holding area 4 on the right side lumbar paraspinal muscles and 2 on the left side lumbar paraspinal muscles each one of them injected with the 2 mL of the mixture of ropivacaine 0.5% 12 ML mixed with 40 mg of Depo-Medrol and 2 mL of the mixture injected at each trigger point after negative aspiration, using 25-gauge needle, injection done after negative aspiration under was no paresthesia during the injection patient tolerated the procedure well without any complications and he will follow up in the pain clinic in a few weeks. note= patient will be started on Zanaflex 4 mg twice a day prescription for 60 tablets with one refill was given.
[2022-12-19 07:26] VITALS: BP 138/65; PULSE 55
== END ==
LOC: ORPAIN 05:58
PROVIDERS: ATTEND Specialist
DX: M47.816 Spondylosis without myelopathy or radiculopathy, lumbar region (principal); M51.36 Other intervertebral disc degeneration, lumbar region; M79.18 Myalgia, other site; Z88.5 Allergy status to narcotic agent; Z79.82 Long term (current) use of aspirin
CPT/HCPCS: 20553; J1030; J2795

== ENCOUNTER → 2023-02-13 | Outpatient (CLI) | payer MEDICARE ==
[2023-02-13 08:37] VITALS: BP 130/76; PULSE 68; RESP 15; TEMP 98.5
--- NOTE | 2023-02-13 15:31 | P.PAINPG ---
PQRS Measure Charge Sheet Comment: A 77 yr old male with a history of severe and chronic LBP x 5 yrs secondary to lumbar DDD and spondylosis with facet arthropathy without myelopathy presents today for evaluation s/p Lumbar TPIs L2-S1 #2. Pt states he experienced 75 % pain relief x 4-5 wks s/p procedure. Pain level is provoked at 6/10 in in tensity, constant, localized in the lumbar spine, predominantly axial, dull/ achy in character w occasional shooting towards the BL hips. Pain is provoked by sitting for periods of 30 min or more. Pain is alleviated with PT x 6 wks in Feb 2022 without relief, physician guided home stretches daily since Feb 2022, heat, medications, use of a cane, repositioning and rest. Oswestry axial pain score of 8. Interventional pain procedures completed include BL RFA L1-L3, DOMENICO R paramedian L2-L3 x1, Lumbar TPIs x2 Patient is currently on Tyl, Lyrica Patient denies any side effects of the medication(s), denies excessive drowsiness or sleepiness, denies suicidal ideation and reports that the current pain medication is helping to control the pain and improve activities of daily living. Patient denies any motor or sensory deficits. Patient denies any fever or night sweats, denies any change in the bowel movements or urination. Physical Examination: -Constitutional: Cooperative. Not in acute distress . - Neurologic: Cranial nerve II to XII intact. No focal neurological deficits. - Psychatric: Alert & oriented x 3. Matching mood & appropriate affect. Judgment and insight intact. - Musculoskeletal: Cervical spine: Muscle bulk/ tone/ strength in the bilateral upper extremities normal Vertebral body tenderness to palpation over Spurling test positive Distraction test positive Facet loading test positive TTP Thoracic spine Muscle bulk / tone/ strength in the bilateral paraspinal muscles normal Vertebral body tender to palpation over Facet loading test positive TTP Lumbar spine: Motor bulk/ tone/ strength lower extremities , thigh and legs : 5/5 Deep tendon reflexes : Normal Knee Jerk. Normal Ankle Jerk . Vertebral body tenderness to palpation over L2 Grant Test positive over R L2-L3 BL taut bands w twitch response Lumbar Facet Loading Test positive Straight Leg Raise: positive at 30 degrees right side/ left side Gaenslen's Test positive Sacral spine : Severe tenderness over the Sacroiliac joint: right side / left side Range of motion: Flexion of the lumbar spine <60 degrees Range of motion: Extension of the lumbar spine <20 degrees Gaenslen's Test positive right side / left side Agata test: positive right side / left side Thigh Thrust Test positive right side / left side Sacral Thrust Test positive right side / left side Assessment and plan: Chronic LBP secondary to lumbar DDD, spondylosis with facet arthropathy without myelopathy Recommendation of R paramedian DOMENICO L2-L3 #1. May need a series of injections for optimal pain relief. Risks, benefits of procedure discussed and pt verbalized understanding. Admits to anticoagulant use or medical history of diabetes. Protocol for discontinuation/ continuation of medications taco procedure discussed. All questions answered. I have spent less than 30 minutes on patient care today. Dr Crouch was available by phone for the evaluation of this patient. The time was used to review the medical records including relevant urine studies and Prescription history (MAPs), review of the available imaging, evaluation and examination of the patient, coordination of care with the medical staff and if applicable referring physicians, as well as creation of the medical record PQRS Narrative: Hx Alcohol Use (MH) Yes Home Medications: Ambulatory Orders Aspirin EC [Ecotrin Low Dose] 81 mg PO DAILY 01/20/20 Multivit-Min/FA/Lycopen/Lutein [Centrum Silver Tablet] 1 tab PO DAILY 01/20/20 Simvastatin [Zocor] 20 mg PO HS 01/20/20 amLODIPine [Norvasc] 10 mg PO DAILY 01/20/20 hydroCHLOROthiazide [Hydrodiuril] 25 mg PO DAILY 01/20/20 lisinopriL [Zestril] 20 mg PO BID 01/20/20 Fluticasone/Umeclidin/Vilanter [Trelegy Ellipta 100-62.5-25] 1 inhalation INHALATION DAILY 04/05/21 Metoprolol Tartrate [Lopressor] 25 mg PO QAM 10/24/21 Vitamin B Complex 1 each PO DAILY 10/24/21 allopurinoL 300 mg PO DAILY 10/24/21 Albuterol Inhaler [Ventolin Hfa Inhaler] 1 - 2 puff INHALATION Q6H PRN 05/20/22 tiZANidine HCL [Zanaflex] 4 mg PO BID PRN 30 Days #60 cap 12/19/22 Controlled Substance Measures - Controlled Substance Measures Is patient prescribed a controlled substance at discharge?: No
== END ==
LOC: PNWHC3 07:14
PROVIDERS: ATTEND Specialist
DX: M51.36 Other intervertebral disc degeneration, lumbar region (principal); M47.816 Spondylosis without myelopathy or radiculopathy, lumbar region; Z88.5 Allergy status to narcotic agent
CPT/HCPCS: 99211

== ENCOUNTER 2023-02-27 05:48 | Day surgery (SDC) | payer MEDICARE ==
[2023-02-27 06:38] VITALS: TEMP 97.5
[2023-02-27] MEDS ORDERED: LACTATED RINGERS 1,000 ML IV ONE (06:48)
[2023-02-27] MEDS ORDERED: methylPREDNISolone ACETATE 80 MG/ML 1 ML VIAL ONE (07:11)
[2023-02-27] MEDS ORDERED: ROPIVACAINE 5MG/ML 20ML VIAL ONE (07:11)
[2023-02-27] MEDS ORDERED: IOPAMIDOL M200 10 ML VIAL ONE (07:11)
[2023-02-27] MEDS ORDERED: LACTATED RINGERS 1,000 ML IV SCH (07:13)
--- NOTE | 2023-02-27 07:31 | P.PCN ---
Description of Procedure: Preprocedure diagnosis. Post laminectomy syndrome. Lumbar radiculopathy. Postprocedure diagnosis. As above. Procedure done. Injection of radial contrast material into the caudal epidural space. Caudal epidurogram, interpretation of caudal epidurogram, caudal epidural steroid injection under fluoroscopic guidance. Anesthesia. Local infiltration with local anesthetics. In OR, continuous pulse ox, EKG, blood pressure and verbal communication was maintained. Blood loss. None. Indication. Discussed with the patient procedure, alternatives, complications which may including infection bleeding and nerve damage aggravation of pain all of which could be permanent. Patient understands and questions were answered. Procedure note. Antibiotic Kefzol 2 g IV started Pre-Op. After getting consent patient in OR in prone position. Back prepped with chlorhexidine 3 times and draped in sterile fashions. 10 mL of 1% lidocaine injected subcutaneously. Under AP and crosstable lateral view of the fluoroscope, 20-gauge Tuohy needle was introduced through the sacral hiatus into caudal epidural space. After needle position confirmation by AP and crosstable lateral view, 5 mL of Omnipaque 200 radiocontrast material injected which was noted into the caudal epidural space. No contrast was noted into the intrathecal or intravascular space. After repeat negative aspiration 10 mL of solution injected which consists of 9 mL of preservative-free normal saline mixed with 1 mL of 80 mg Depo-Medrol. Tuohy needle was taken out and bandages applied. Disposition. Patient tolerated the procedure well. No complication. Discharged home in stable condition.
[2023-02-27] MEDS ORDERED: IV FLUID CONTINUATION 1,000 ML IV ONE (07:37)
[2023-02-27 07:51] VITALS: BP 113/71; PULSE 50; RESP 16
--- NOTE | 2023-02-27 10:13 | FL ---
EXAMINATION TYPE: FL guided pain mgmt statistic DATE OF EXAM: 02/27/2023 HISTORY: Fluoroscopy time Total dose area product (DAP) in uGy*m?, mGy*cm? (or similar): 0.4924 IMPRESSION: 1. Fluoroscopy time.
== END 2023-02-27 07:54 | disposition home or self-care (01) ==
LOC: ORPAIN 05:48
PROVIDERS: ATTEND Pain Medicine Interventional Pain Medicine
DX: M96.1 Postlaminectomy syndrome, not elsewhere classified (principal); M54.16 Radiculopathy, lumbar region; Z88.5 Allergy status to narcotic agent; Z79.82 Long term (current) use of aspirin
CPT/HCPCS: 62323; J1040; Q9966; J2795

== ENCOUNTER → 2023-03-26 | Outpatient (CLI) | payer MEDICARE ==
--- NOTE | 2023-03-26 17:10 | CT ---
EXAMINATION TYPE: CT lumbar spine wo con CT DLP: 979 mGycm, Automated exposure control for dose reduction was used. DATE OF EXAM: 03/26/2023 4:27 PM COMPARISON: MR 03/26/2023. CLINICAL INDICATION:Male, 77 years old with history of M54.50; PHH, low back pain x several years. hx of back sx. TECHNIQUE: Multiple axial images were obtained from the midportion of T11 through the sacroiliac prateek nts. Soft tissue and bone windows in coronal and sagittal planes were obtained and reviewed. 3-D ref ormats of the bones were created on a separate workstation and submitted for review. Contrast used: (None, if empty). Oral contrast used: (None, if empty). FINDINGS: Alignment: There are 5 lumbar type vertebral bodies within normal alignment. Bone: Severe degeneration changes are seen throughout the spine with osteophytes, disc space narrowin g, facet joint arthropathy and thickness phenomenon. Osteophyte formation of the sacroiliac joints wi th thickness phenomenon bilaterally. Discs: T12-L1: No spinal canal or neural foraminal stenosis is identified. L1-L2: Facet joint arthropathy and disc bulging result with moderate spinal canal stenosis and mild b ilateral neural foraminal stenosis. L2-L3: Facet joint arthropathy and disc bulging result with moderate to severe spinal canal stenosis and moderate bilateral neural foraminal stenosis. L3-L4: Facet joint arthropathy and disc bulging result with moderate spinal canal stenosis and modera te bilateral neural foraminal stenosis. L4-L5: Facet joint arthropathy and disc bulging result with mild to moderate spinal canal stenosis an d mild bilateral neural foraminal stenosis. L5-S1: Facet joint arthropathy and disc bulging result with mild spinal canal stenosis and severe lei ateral neural foraminal stenosis. Other: None IMPRESSION: Moderately severe degeneration changes throughout the spine with high-grade neural foraminal stenosis in the lumbar spine. Tension on subsequent MRI liver spine.
== END | disposition home or self-care (01) ==
LOC: RADMRIMAIN 16:00
PROVIDERS: ATTEND Orthopaedic Surgery
DX: M51.36 Other intervertebral disc degeneration, lumbar region (principal); M99.73 Connective tissue and disc stenosis of intervertebral foramina of lumbar region
CPT/HCPCS: 72131; 72148

== ENCOUNTER → 2023-06-12 | Outpatient (CLI) | payer MEDICARE | END | disposition home or self-care (01) | LOC: LABPAT 12:54 | PROVIDERS: ATTEND Orthopaedic Surgery | DX: Z01.812 Encounter for preprocedural laboratory examination (principal); M48.062 Spinal stenosis, lumbar region with neurogenic claudication; Z22.322 Carrier or suspected carrier of Methicillin resistant Staphylococcus aureus | CPT/HCPCS: 86850; 86900; 86901; 87070 ==

== ENCOUNTER 2023-06-17 05:42 | Day surgery (SDC) | payer MEDICARE ==
[2023-06-12 08:57] VITALS: BMI 36.1
--- NOTE | 2023-06-15 08:17 | P.HPOR ---
History of Present Illness H&P Date: 06/11/23 .D:Date: 06/11/23 : 09:02am .T:Title: [facility] HISTORY AND PHYSICAL Age: 77 year Height: 5'11" Weight: 305 lbs BP:132/80 BMI: 42.54 kg/m2 Occupation: Retired VAS: 5 CC: Pre-operative Evaluation for L4-S1 laminectomy IMPRESSION: It was my pleasure to have seen and examined Gutierrez.I reviewed the patient's clinical syndrome, physical findings, and imaging studies during the appointment today. It is my impression that the patient has a diagnosis of. 1. L4-S1 stenosis 2. Neurogenic claudication I outlined the natural course history without intervention and various interve ntional options. Spine Surgery Risk Review Mr. Dean is presenting for evaluation of low back and bilateral lower extremity pain, bilateral lower extremity numbness and tingling. It was my pleasure to have seen and examined Mr. Dean. In our visit today we have had a chance to go over subjective complaints, physical examination findings and treatments including the natural course history without intervention and various interventional options. The patients imaging demonstrates: XRay Lumbar Multiview (AP, Lateral, Flexion, Extension) with AP pelvis; 5 views taken at [facility] on 04/05/22: - Re-reviewed with the patient today. Moderate to severe spondylitic degenerative changes with flattening of the normal lordosis.Large bridging anterior and inferior osteophytes correlate for diffuse idiopathic skeletal hyperostosis. multilevel diminished disc height. No acute osseous abnormalities [facility]: - Re-reviewed with the patient today. Lumbar vertebrae have normal alignment. There is degenerative disc space narrowing throughout the lumbar spine and more severe at L4-5. There is minimal posterior disc bulging at L4-5 and L2-3. There is hypertrophic facet arthropathy and developmentally small spinal canal. There is resultant mild spinal stenosis at L4-5. There is some mild neural foraminal narrowing throughout the lumbar spine due to disc space narrowing and facet arthropathy. There is no lumbar paraspinal mass. No focal bone destruction. IMPRESSION: Multilevel spondylotic changes. Mild relative spinal stenosis at L4- 5. No fracture. On physical exam, Mr. Dean demonstrates: A constant ache-like pain throughout the low back that radiates down into the right hip and bilateral lower extremities. The patient states that his bilateral lower extremity pain is associated with numbness, tingling, and weakness. The patient states his current symptoms worsen after prolonged walking and standing, or when going from a seated to standing position. The patient reports experiencing severe sleep disturbances related to his ongoing pain and associated symptoms. I have explained to the patient that as their condition progresses it will cause further neurological deficits and eventual paralysis. Based on the patients imaging, physical exam, and the rapid progression and disabling nature of their symptoms, at this time I recommend surgery in the form of a: L4-S1 laminectomy. I discussed the risk and benefits of this procedure at length with Mr. Dean. The patient agreed to considered pursuing the procedure abovementioned. Prior to surgery, she should follow up with her PCP (Cardio, ID, IM etc) for clearance. Questions were invited and answered, and the patient wishes to proceed as outlined below. Currently, I am recommendin. L4-S1 laminectomy 2.Review of surgical risks and benefits as well as an educational packet on the proposed surgical procedure. Risks: All surgical procedures come with inherent risks, including those related to positioning, anesthesia, intraoperative findings, and postoperative complications. It is important to understand that surgery does not come with any guarantee of a successful outcome as complications and adverse events are always possible. The patient was given a handout in office today discussing the surgical procedure and risks associated with the intervention, both of which were discussed with the patient. These risks include but are not limited to the following: * Experiencing same, different or even worse symptoms in back, neck, arms, or legs compared to before surgery. Requiring further surgery or other forms of treatment presently or at some time in the future at same or other levels of the intended spine surgery. On an extreme but fortunately relatively rare basis severe complication such as blindness, stroke, heart attack, temporary and/or permanent nerve injury, paralysis, coma, or may occur, sometimes without known explanation. Surgical complications may include but are not limited to risk of infection, fluid accumulation in the surgical dissection site, including a seroma or hematoma, that requires additional surgery, wound drainage, bleeding, new numbness or weakness, vision changes/loss, spinal fluid leakage, non-healing and/or infected incision, headaches, difficulty or inability to swallow, hoarseness, hemopneumothorax, pneumothorax, impotence, retrograde ejaculation, vaginal dryness; injury to nerves, spinal cord, blood vessels, lymphatics or other vital organs (i.e., bowel injury, injury to the great vessels); heterotopic bone formation; complications related to the hardware such as screws, rods, cages including misplaced hardware, device failure, instrumentation at the wrong spine level, hardware fracture/breakage, or hardware loosening; vertebral failure of the spinal column above or below the newly placed hardware; retained surgical instrumentations or devices and the need for further surgery. * Medical risks of the planned spine surgery include but are not limited to generalized Infections to the whole body or local areas outside of the surgical site (sepsis), heart attack, bleeding, anaphylaxis, meningitis, seizure, epilepsy, hearing loss, burn resendiz, laceration of the head or other areas of the body, bruising, hypersensitivity of the skin, bladder over distension; allergic reaction; shoulder injury related to positioning; fat, blood and air clots to other areas of the body like heart, lungs, brain; failure of internal organs such as lungs, kidneys, liver and excessive blee ding. If blood transfusions are necessary, note that transfusions may cause intolerance reactions such as anaphylaxis or other complex reactions. Despite best efforts, the results of spine surgery might not heal in terms of bone, soft tissues such as skin, fascia, ligaments, and joints. Additionally, in order to achieve best possible results, spine surgery may be carried out beyond the initially planned levels and involve decompression, fusion including insertion of hardware at levels other than the original intended area of surgical interest change some portions of the procedure in order to ensure the best possible outcomes. With spine surgery and spinal fusion, there are different off label uses of instrumentation (devices, implants and hardware) as well as biological substances (bone morphogenic proteins, demineralized bone matrix) as well as using extra bone from allograft sources (i.e. cadaver bone) or autograft (iliac crest bone, ribs, or the spine itself). The patient has been given information about these practices and their inherent risks and benefits. [facility] is an educational center that serves as a training facility for neurosurgical and orthopedic [employer] and Nursing students. Physician assistants are medically trained surgical providers who function in the outpatient, inpatient, and operating room setting under the direct supervision of the attending surgeon. [facility] has multiple operating rooms with single and overlapping rooms running daily. They currently function under the required guidelines as produced by the [facility] Finance Committee with regards to the overlapping rooms and will continue to comply with changes to this policy as they occur. The requirements include and are complied with as follows: (1) the critical portions of the overlapping rooms will not occur at the same time, (2) the attending physician will be physically present during the critical portions of the procedure and immediately available during the entire case, and (3) a back-up attending is designated should the primary attending not be immediately available. The patient has had a chance to review all the listed information, has been given print outs detailing this information, and has had all his/her questions answered to their satisfaction. It was my pleasure to have seen and examined Mr. Dean. In our visit today we have had a chance to go over my understanding of our patient's current condition, the natural course history without intervention and various interventional options. Questions were invited and answered, and the patient w ishes to proceed as outlined above. I have seen and examined the patient for 25 minutes and we have spent more than 50% of the time in repeat and detailed counseling about the patient's condition, its natural course history with out and as much as can be predicted with surgery and re-review of various surgical treatment options. In conclusion, Mr. Dean requested we proceed with the above suggested surgery and are willing to accept risks and limitations of the suggested surgery as nature of the disease process and our best attempts at treatment for the condition. Thank you again for allowing us to be part of your patient's care. Please don't hesitate to contact me if you have any further questions. FOLLOW UP: Post Procedure PATIENT EDUCATION: Medications Reviewed: YES In our visit today Mr. Dean and I have had a chance to go over my understanding of the patient's current condition, the natural course history without intervention and various interventional options. Questions were invited and answered, and the patient wishes to proceed as outlined above. I will be sure to keep you updated after Mr. Dean returns here for further follow-up. Thank you again for your referral. Please do not hesitate to contact me if you have any further questions. Signed and authenticated by: Travis Olson [facility] [place] [address] [address] This message is confidential, intended only for the named recipient(s) and may contain information that is privileged or exempt from disclosure under applicable law. If you are not the intended recipient(s), you are notified that the dissemination, distribution or copying of this information is strictly prohibited. If you received this message in error, please notify the sender then delete this message. 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 Hx kidney stones. Uses CPAP. PE 01/2020,gout History of Any Multi-Drug Resistant Organisms: None Reported Past Surgical History: Back Surgery, Joint Replacement Additional Past Surgical History / Comment(s): piece of bone or cartilage pressin on the nerve removed from back, Total Rt hip. Colonoscopy. Cataracts bilat. PAIN CLINIC PROCEDURES Past Anesthesia/Blood Transfusion Reactions: No Reported Reaction, Motion Sickness Additional Past Anesthesia/Blood Transfusion Reaction / Comment(s): no hx blood transfusion Smoking Status: Never smoker - Past Family History Father Family Medical History: Respiratory Disorder Additional Family Medical History / Comment(s): w/ mesothelioma Medications and Allergies Home Medications Medication Instructions Recorded Confirmed Type Aspirin EC [Ecotrin Low Dose] 81 mg PO DAILY 01/20/20 06/12/23 History Multivit-Min/FA/Lycopen/Lutein 1 tab PO DAILY 01/20/20 06/12/23 History [Centrum Silver Tablet] Simvastatin [Zocor] 20 mg PO HS 01/20/20 06/12/23 History amLODIPine [Norvasc] 10 mg PO QAM 01/20/20 06/12/23 History hydroCHLOROthiazide [Hydrodiuril] 25 mg PO DAILY 01/20/20 06/12/23 History lisinopriL [Zestril] 20 mg PO BID 01/20/20 06/12/23 History Fluticasone/Umeclidin/Vilanter 1 inhalation INHALATION QAM 04/05/21 06/12/23 History [Trelegy Ellipta 100-62.5-25] Metoprolol Tartrate [Lopressor] 25 mg PO QAM 10/24/21 06/12/23 History Vitamin B Complex 1 each PO DAILY 10/24/21 06/12/23 History allopurinoL 300 mg PO DAILY 10/24/21 06/12/23 History Albuterol Inhaler [Ventolin Hfa 1 - 2 puff INHALATION Q6H PRN 05/20/22 06/12/23 History Inhaler] Allergies Allergy/AdvReac Type Severity Reaction Status Date / Time oxycodone AdvReac Nausea & Verified 06/12/23 08:29 Vomiting Physical Examination Osteopathic Statement: *. No significant issues noted on an osteopathic structural exam other than those noted in the History and Physical/Consult.
[~2023-06-17 05:42] MED LIST changes: -LACTATED RINGERS 1,000 ML IV SCH; -ROPIVACAINE 5MG/ML 20ML VIAL ONE; +TRANEXAMIC 1,000 MG/100ML-NACL 1,000 MG in SALINE 1 100ML.BAG IVPB PRN; -methylPREDNISolone ACETATE 40 MG/ML 1 ML VIAL ONE
[2023-06-17] MEDS: LACTATED RINGERS 1,000 ML IV SCH (06:23)
[2023-06-17] MEDS: GABAPENTIN 300 MG CAP PO PRN (06:53)
[2023-06-17] MEDS: DEXAMETHASONE SOD PHOSPHATE 4 MG/ML 1 ML VIAL IV ONE (06:53)
[2023-06-17] MEDS: ACETAMINOPHEN TAB 500 MG TAB PO PRN (06:53)
[2023-06-17] MEDS: LACTATED RINGERS 1,000 ML IV ONE ×2 (06:54→08:53)
[2023-06-17] MEDS: ONDANSETRON 4 MG/2 ML VIAL IVP PRN (06:54)
[2023-06-17] MEDS ORDERED: ONDANSETRON 4 MG/2 ML VIAL IVP PRN ×2 (07:00→10:05)
[2023-06-17] MEDS ORDERED: GLYCOPYRROLATE 0.2 MG/ML 2 ML VIAL ONE (07:24)
[2023-06-17] MEDS ORDERED: PROPOFOL 10 MG/ML 20 ML VIAL IV ONE (07:24)
[2023-06-17] MEDS ORDERED: ROCURONIUM 10 MG/ML (5 ML VIAL) IV ONE (07:24)
[2023-06-17] MEDS ORDERED: ePHEDrine 50 MG/ML 1 ML VIAL ONE (07:24)
[2023-06-17] MEDS ORDERED: fentaNYL (PF) 50 MCG/ML 2 ML AMP ONE (07:24)
[2023-06-17] MEDS ORDERED: NEOSTIGMINE 1 MG/ML 10 ML VIAL ONE (07:24)
[2023-06-17] MEDS ORDERED: TRANEXAMIC 1,000 MG/100ML-NACL PREMIX BAG ONE (07:24)
[2023-06-17] MEDS ORDERED: KETAMINE HCL IN 0.9 % NACL 50 MG/5 ML SYRINGE ONE (07:24)
[2023-06-17] MEDS ORDERED: LIDOCAINE 1% INJ 10MG/ML (20 ML MDV) ONE (07:24)
[2023-06-17] MEDS ORDERED: SUCCINYLCHOLINE CHLORIDE 200 MG/10 ML VIAL IV ONE (07:24)
[2023-06-17] MEDS ORDERED: MIDAZOLAM 2 MG/2 ML VIAL ONE (07:24)
[2023-06-17] MEDS: ceFAZolin 3 GM in SODIUM CHLORIDE 0.9% 100 ML IVPB PRN (07:30)
[2023-06-17] MEDS: BUPIVACAINE (PF) 0.5% 30 ML VIAL SQ ONE (08:15)
[2023-06-17] MEDS: THROMBIN (BOVINE) 5,000 UNIT VIAL MISCELLANE ONE (08:15)
[2023-06-17] MEDS: LIDOCAINE 2% (PF) 20 MG/ML 10 ML AMP SQ ONE (08:16)
[2023-06-17] MEDS: VANCOMYCIN 1,000 MG VIAL MISCELLANE ONE (09:17)
--- NOTE | 2023-06-17 09:53 | XR ---
EXAM TYPE: LUMBAR SPINE X RAY SERIES COMPARISON: NONE HISTORY: 03/26/2023 TECHNIQUE: 7 views are submitted. FINDINGS: Intraoperative changes are seen involving the lumbar spine surgical instrument dictation. Hypertrophi c and degenerative change spine. IMPRESSION: See above
[2023-06-17] MEDS ORDERED: bisacodyL 10 MG SUPP RECTAL PRN (10:05)
[2023-06-17] MEDS ORDERED: HYDROmorphone 1 MG/ML 1 ML SYRINGE IVP PRN (10:05)
[2023-06-17] MEDS ORDERED: CYCLOBENZAPRINE 5 MG TAB PO PRN (10:05)
[2023-06-17] MEDS ORDERED: MAGNESIUM HYDROXIDE 2,400 MG/30 ML CUP PO PRN (10:05)
[2023-06-17] MEDS ORDERED: HYDROcodone/APAP 10-325MG 1 EACH TAB PO PRN (10:05)
[2023-06-17] MEDS ORDERED: HYDROmorphone 0.5 MG/0.5 ML SYRINGE IVP PRN (10:05)
--- NOTE | 2023-06-17 10:13 | P.OP ---
Date of Procedure: 06/17/23 Preoperative Diagnosis: 1. L4-S1 STENOSIS WITH RADICULOPATHY 2. L4-S1 SPONDYLOSIS WITH STENOSIS 3. LE WEAKNESS 4. NEUROGENIC CLAUDICATION 5. LOW BACK PAIN Postoperative Diagnosis: 1. L4-S1 STENOSIS WITH RADICULOPATHY 2. L4-S1 SPONDYLOSIS WITH STENOSIS 3. LE WEAKNESS 4. NEUROGENIC CLAUDICATION 5. LOW BACK PAIN Procedure(s) Performed: 1. L4-5 BILATERAL LAMINECTOMY, PARTIAL MEDIAL FACETECTOMY AND FORAMINOTOMY 2. L5-S1 BILATERAL LAMINECTOMY, PARTIAL MEDIAL FACETECTOMY AND FORAMINOTOMY Implants: NONE Anesthesia: GETA Surgeon: Travis London Detonator Maker #1: Kelly Rai (WAS PRESENT AND ASSISTED WITH ALL ASPECTS OF THE CASE FROM POSITION TO CLOSURE) Estimated Blood Loss (ml): 100 IV fluids (ml): 1,000 Urine output (ml): 250 Pathology: none sent Condition: stable Disposition: PACU Indications for Procedure: Mr. Dean is presenting for evaluation of low back and bilateral lower extremity pain, bilateral lower extremity numbness and tingling. It was my pleasure to have seen and examined Mr. Dean. In our visit today we have had a chance to go over subjective complaints, physical examination findings and treatments including the natural course history without intervention and various interventional options. The patients imaging demonstrates: XRay Lumbar Multiview (AP, Lateral, Flexion, Extension) with AP pelvis; 5 views taken at [facility] on 04/05/22: - Re-reviewed with the patient today. Moderate to severe spondylitic degenerative changes with flattening of the normal lordosis.Large bridging anterior and inferior osteophytes correlate for diffuse idiopathic skeletal hyperostosis. multilevel diminished disc height. No acute osseous abnormalities [facility]: - Re-reviewed with the patient today. Lumbar vertebrae have normal alignment. There is degenerative disc space narrowing throughout the lumbar spine and more severe at L4-5. There is minimal posterior disc bulging at L4-5 and L2-3. There is hypertrophic facet arthropathy and developmentally small spinal canal. There is resultant mild spinal stenosis at L4-5. There is some mild neural foraminal narrowing throughout the lumbar spine due to disc space narrowing and facet arthropathy. There is no lumbar paraspinal mass. No focal bone destruction. IMPRESSION: Multilevel spondylotic changes. Mild relative spinal stenosis at L4- 5. No fracture. On physical exam, Mr. Dean demonstrates: A constant ache-like pain throughout the low back that radiates down into the right hip and bilateral lower extremities. The patient states that his bilateral lower extremity pain is associated with numbness, tingling, and weakness. The patient states his current symptoms worsen after prolonged walking and standing, or when going from a seated to standing position. The patient reports experiencing severe sleep disturbances related to his ongoing pain and associated symptoms. I have explained to the patient that as their condition progresses it will cause further neurological deficits and eventual paralysis. Based on the patients imaging, physical exam, and the rapid progression and disabling nature of their symptoms, at this time I recommend surgery in the form of a: L4-S1 laminectomy. I discussed the risk and benefits of this procedure at length with Mr. Dean. The patient agreed to considered pursuing the procedure abovementioned. Prior to surgery, she should follow up with her PCP (Cardio, ID, IM etc) for clearance. Questions were invited and answered, and the patient wishes to proceed as outlined below. Currently, I am recommendin. L4-S1 laminectomy Description of Procedure: L4-S1 Open laminectomy The patient was seen and examined in the preoperative area. All preoperative protocols were followed. Informed consent was obtained, risks and benefits of the procedure were discussed at length. Risks including bleeding infection damage to the surrounding tissue and risk of reoperation were discussed with the patient. Risk of anesthesia up to and including was discussed with the patient. These are outlined in the risk review. They were willing to accept these risks and all of the risks of surgery. The patient was given a weight- based dose of antibiotics in the form of [Ancef]. The patient was seen and evaluated by the anesthesia team who deemed them fit for surgery. The site was marked, the patient was willing to proceed with the procedure. The patient was transferred to the operative suite by the Department of anesthesia. They were then drifted off to sleep by the department anesthesia and [GETA] was performed. The patient tolerated this well. [Salomon catheter was placed by nursing staff, atraumatically]. Once confirmation of lines and ventilation the patient was transferred to a [prone Nate table very carefully]. All bony prominences including wrists, elbows, axilla, chest, hips, and thighs, and feet were padded very well. Special attention was paid to the genitalia and these were padded accordingly. SCDs were placed on bilateral lower extremities and were connected. Arms were well padded and placed [on arm boards up and out in the 90/90 position]. Once in position, again we confirmed good ventilation capabilities and that lines were running appropriately. The patient's [Lumbar] spine was then exposed. 1010s were placed outlining the incision site. Standard alcohol was used to clean the incision site and allowed to dry. C-arm was used to biomark the patient and confirm level for incision which was marked with a skin marker. Operative briefing was performed with all teams and everyone in agreement to proceed. The patient was then prepped and draped in a normal sterile fashion. Timeout was then performed and all parties were in agreement with the procedure to be performed. Midline skin incision made and subperiosteal dissection taken down over the lamina of L3-S1. Facet joints located and protected. Alamo 4 was placed at the pars of L4-5 to twyla a lateral image taken to confirm levels for operation. Bilateral laminectomy, partial medial facetectomy and foraminotomies were then performed at L4-S1 using high speed arjun, 2-0 upbiting curette, 6-0 kerrison and 4-0 kerrison rongeurs. Ligamentum was removed. Deep facet joints capsule was removed along with cysts that were found deep from the facets. Foraminotomies done with kerrison and checked with a Ch ball probe. The patient had exuberant scar tissue on the center and right side of L4-5 due to previous surgery in this area. This was removed and nerves-compressed in this area. Once decompression completed, meticulous hemostasis was done with floseal, paddies and gel foam. The wound bed was then irrigated with 6 L Abx Anfect and Gen followed by 6L NSS. The wound was inspected. Good decompression noted with no injury. [There were what looked like blebs around the dura where his previous DOMENICO had been done. There were no leaks however. Gel foam was placed over these.] X Rays were taken AP and lateral with markers to twyla the decompression. Surgicel was placed on the dura. 2g Vanco powder placed in the wound. No drain placed. Wound bed was dry. We then proceeded with closure. #1 PDS placed in the facia. 0 Vicryl placed in the deep subq and 2-0 in the superficial. Mari placed in the skin. Wound edges approximated very well. The wound was then cleaned and dressed sterilly with adaptic, 4x4, abd dressing, sponge and Foam tape The patient was transferred back to their hospital bed atraumatically. Patient was then awakened and extubated by the department of anesthesia having tolerated the procedure very well with no complications. They were transferred to the postoperative care unit in stable condition.
[2023-06-17] MEDS: HYDROmorphone 0.5 MG/0.5 ML SYRINGE IVP PRN (10:51)
[2023-06-17] MEDS: ONDANSETRON 4 MG/2 ML VIAL IVP ONE (11:03)
[2023-06-17] MEDS: SODIUM CHLORIDE 0.9% 1,000 ML IV SCH (11:03)
[2023-06-17] MEDS: HYDROcodone/APAP 5-325MG 1 EACH TAB PO PRN (13:43)
[2023-06-17] MEDS: ceFAZolin 3 GM in SODIUM CHLORIDE 0.9% 100 ML IVPB SCH (16:02)
[2023-06-17] MEDS ORDERED: ALBUTEROL NEBULIZED 2.5 MG/3 ML INHALATION PRN (16:52)
[2023-06-17] MEDS: BENZOCAINE/MENTHOL LOZENG 1 EACH LOZENGE MUCOUS MEM PRN (19:29)
[2023-06-17] MEDS: lisinopriL 20 MG TAB PO SCH (20:23)
[2023-06-17] MEDS: ATORVASTATIN 10 MG TAB PO SCH (20:23)
[2023-06-18 06:24] LABS: Basophils % (A) 0 %; Eosinophils % (A) 0 %; HCT 37.8 % (39.0-53.0); HGB 12.3 gm/dL (13.0-17.5); Lymphocytes # (A) 1.3 k/uL (1.0-4.8); Lymphocytes % (A) 10 %; MCH 29.8 pg (25.0-35.0); MCHC 32.6 g/dL (31.0-37.0); MCV 91.5 fL (80.0-100.0); Monocytes # (A) 0.7 k/uL (0-1.0); Monocytes % (A) 5 %; Neutrophils % (A) 83 %; Platelet Count 229 k/uL (150-450); RBC 4.13 m/uL (4.30-5.90); RDW 13.3 % (11.5-15.5); WBC 13.2 k/uL (3.8-10.6)
[2023-06-18 06:50] LABS: ALT 21 U/L (4-49); AST 26 U/L (17-59); African American GFR (CKD) >90 (>60 ml/min/1.73 sqM); Albumin 3.2 g/dL (3.5-5.0); Albumin/Globulin Ratio 1.4; Alkaline Phosphatase 78 U/L (38-126); Anion Gap 7 mmol/L; Blood Urea Nitrogen 19 mg/dL (9-20); Calcium 8.6 mg/dL (8.4-10.2); Carbon Dioxide 28 mmol/L (22-30); Chloride 104 mmol/L (98-107); Globulin 2.3 g/dL; Glucose 132 mg/dL (74-99); Non-African American GFR(CKD) 85 (>60 ml/min/1.73 sqM); Potassium 3.6 mmol/L (3.5-5.1); Sodium 139 mmol/L (137-145); Total Bilirubin 0.4 mg/dL (0.2-1.3); Total Protein 5.5 g/dL (6.3-8.2)
[2023-06-18 07:22] VITALS: BP 106/61; PULSE 60; RESP 18; TEMP 97.9
[2023-06-18] MEDS: METOPROLOL TARTRATE 25 MG TAB PO SCH (07:53)
[2023-06-18] MEDS: SENNOSIDES-DOCUSATE SODIUM 1 EACH TAB PO SCH (07:53)
[2023-06-18] MEDS: hydroCHLOROthiazide 25 MG TAB PO SCH (07:53)
[2023-06-18] MEDS: ASPIRIN 81 MG PO SCH (07:53)
[2023-06-18] MEDS: allopurinoL 300 MG TAB PO SCH (07:53)
[2023-06-18] MEDS: amLODIPine 10 MG TAB PO SCH (07:53)
[2023-06-18] MEDS: MULTIVITAMINS, THERA 1 EACH TAB PO SCH (07:53)
--- NOTE | 2023-06-18 08:56 | P.PN ---
Subjective Progress Note Date: 06/18/23 Principal diagnosis: 1. L4-S1 stenosis 2. Neurogenic claudication Patient seen and examined this morning. Patient is resting comfortably in bed. He states that he has been ambulatory within room and hallway with rolling walker. He states he is tolerating activity well and has noticed improvement of his right lower extremity radiculopathy since the procedure. Surgical incision to the lumbar spine is well approximated with virgie intact. There is scant amount of sanguinous drainage on bandage. New surgical dressing has been applie d. Prescription for rolling walker has been placed in chart. Patient states that he feels comfortable with going home. Discussed with patient that physical therapy would be in to work with him this morning. Discharge instructions have been discussed. No acute concerns at this time Objective - Vital Signs Vital signs: Vital Signs Temp 97.9 F 06/18/23 06:42 Pulse 60 06/18/23 06:42 Resp 18 06/18/23 06:42 BP 106/61 06/18/23 06:42 Pulse Ox 94 L 06/18/23 06:42 FiO2 Intake & Output 06/17/23 06/18/23 06/18/23 18:59 06:59 18:59 Intake Total 2200 950 Output Total 970 950 Balance 1230 0 Weight 140.1 kg Intake: IV 2200 Oral 950 Output: Urine 920 950 Uretheral (Salomon) 600 Estimated Blood Loss 50 Other: Voiding Method Indwelling Catheter - Exam Physical Examination General: The patient is awake and alert, in no acute distress Skin: Skin is warm and dry with no obvious rashes or lesions. Surgical incision to the lumbar spine, edges are well approximated with virgie intact. New surgical dressing has been applied. Eye: Pupils are equal, round and reactive to light, extra-ocular movements are intact; there is normal conjunctiva bilaterally. Neck: The neck is supple, there is no tenderness and ROM intact. Cardiovascular: There is a regular rate and rhythm. No murmur, rub or gallop is appreciated. Respiratory: Lungs are clear to auscultation, respirations are non-labored, breath sounds are equal. Gastrointestinal: Soft, non-distended, non-tender abdomen. Back: There is no tenderness to palpation in the midline, paralumbar, parathoracic or buttocks region. There is no obvious deformity . Musculoskeletal: ROM limited secondary to pain and stiffness from surgical procedure. Muscle strength in all major muscle groups of bilateral upper extremities 5/5, bilateral lower extremities 4/5. Neurological: CN 2-12 intact. There are no obvious motor or sensory deficits. Movement and coordination equal and intact. Sensory exam to light touch intact C5-T1 and intact from L2-S1. Reflexes 2/4 in bilateral upper and lower extremi ties. Negative Hoffmans, babinski, and clonus signs. Psychiatric: Cooperative, appropriate mood & affect, normal judgment. - Labs CBC & Chem 7: 06/18/23 05:24 06/18/23 05:24 Labs: Abnormal Lab Results - Last 24 Hours (Table) 06/18/23 06/18/23 Range/Units 05:24 05:24 WBC 13.2 H (3.8-10.6) k/uL RBC 4.13 L (4.30-5.90) m/uL Hgb 12.3 L (13.0-17.5) gm/dL Hct 37.8 L (39.0-53.0) % Neutrophils # 11.0 H (1.3-7.7) k/uL Glucose 132 H (74-99) mg/dL Total Protein 5.5 L (6.3-8.2) g/dL Albumin 3.2 L (3.5-5.0) g/dL Assessment and Plan Assessment: Postop day 1: L4-S1 laminectomy 1. L4-S1 stenosis 2. Neurogenic claudication Plan: -Appreciate senior solutions consultant and team management. -Salomon catheter removed this morning, patient is due to void. -Activity: Ambulate QID, OOB all meals, up and about, limit lifting bending twisting to less than 5 lbs. Use walker or cane if needed for stability. -Daily PT/OT, increase ambulation strength and balance. -Pain control: Adequate at this time -Meds: reviewed -GI ppx: senna, Miralax -DVT PPX: OK to restart Heparin tonight -Hygiene: Shower today. Maintain dressing clean and dry. Meticulous cleaning after BMs away from the incision site -Encourage IS 10x/hr -Dispo: Anticipate discharge home today with homecare *I reviewed and discussed this case with my attending Dr. London, whom has reviewed this chart and films and is in agreement with assessment and plan of care as outlined above. I have personally seen and examined the patient, performed the documentation and the assessment and plan as written. Number of minutes spent on the visit: 20m.
[2023-06-18] MEDS ORDERED: NON FORMULARY DRUG (Fluticasone/Umeclidin/Vilanter [Trelegy Ellipta 100-62.5-25] 1 EACH Bl INHALATION SCH (09:00)
[2023-06-18] MEDS ORDERED: NON FORMULARY DRUG (Vitamin B Complex [Vitamin B Complex] 1 EACH Capsule) PO SCH (09:00)
[2023-06-18] MEDS: IPRATROPIUM 0.5 MG/2.5 ML NEBU INHALATION SCH (09:13)
[2023-06-18] MEDS: SYMBICORT 80-4.5 MCG INHALER INHALATION SCH (09:13)
--- NOTE | 2023-06-18 10:28 | P.DS ---
Providers Date of admission: 06/17/23 Expected date of discharge: 06/18/23 Attending physician: Travis London DO Consults: 06/17/23 10:09 Consult Physician Routine Consulting Provider: Randy Frye Reason/Comments: Medical Management Do you want consulting provider notified?: Yes Primary care physician: Randy Uday [facility] Course: Hospital Course: The patient was evaluated preoperatively and found to have the diagnosis of lumbar spondylosis They underwent appropriate preoperative care and were willing to undergo the intended procedure. They underwent a successful L4-S1 decompressive laminectomy were recovered appropriately and sent to the floor. While on the floor they worked with physical therapy, occupational therapy and nursing to enhance their recovery experience. Their pain was well controlled through their stay and they were started on appropriate medications, DVT ppx modalities, activity and dietary needs. Daily labs were monitored closely, and transfusions were only used when necessary. Medicine as well as other consulting services have made their input and have helped with our team approach and mul tidisciplinary care. PT milestones have been met and passed and they have made the recommendation of home with home care for this patient and treating providers agree with this care path. The patient will be discharged home with appropriate medications, instructions and follow-up information and in stable condition. Patient Condition at Discharge: Good Plan - Discharge Summary Discharge Rx Participant: Yes New Discharge Prescriptions: New Sennosides/Docusate Sodium [Senna Plus 8.6-50 mg Softgel] 1 each PO DAILY PRN #20 capsule PRN Reason: Constipation cefaDROXiL [Duricef] 500 mg PO Q12HR #10 cap Cyclobenzaprine [Flexeril] 5 mg PO TID PRN #40 tablet PRN Reason: Muscle Spasm HYDROcodone/APAP 5-325MG [Garwood 5-325] 1 tab PO Q4HR PRN #42 tab PRN Reason: Pain No Action lisinopriL [Zestril] 20 mg PO BID amLODIPine [Norvasc] 10 mg PO QAM Multivit-Min/FA/Lycopen/Lutein [Centrum Silver Tablet] 1 tab PO DAILY hydroCHLOROthiazide [Hydrodiuril] 25 mg PO DAILY Simvastatin [Zocor] 20 mg PO HS Aspirin EC [Ecotrin Low Dose] 81 mg PO DAILY Fluticasone/Umeclidin/Vilanter [Trelegy Ellipta 100-62.5-25] 1 inhalation INHALATION QAM Vitamin B Complex 1 each PO DAILY Metoprolol Tartrate [Lopressor] 25 mg PO QAM allopurinoL 300 mg PO DAILY Albuterol Inhaler [Ventolin Hfa Inhaler] 1 - 2 puff INHALATION Q6H PRN PRN Reason: Shortness Of Breath Discharge Medication List Aspirin EC [Ecotrin Low Dose] 81 mg PO DAILY 01/20/20 [History] Multivit-Min/FA/Lycopen/Lutein [Centrum Silver Tablet] 1 tab PO DAILY 01/20/20 [History] Simvastatin [Zocor] 20 mg PO HS 01/20/20 [History] amLODIPine [Norvasc] 10 mg PO QAM 01/20/20 [History] hydroCHLOROthiazide [Hydrodiuril] 25 mg PO DAILY 01/20/20 [History] lisinopriL [Zestril] 20 mg PO BID 01/20/20 [History] Fluticasone/Umeclidin/Vilanter [Trelegy Ellipta 100-62.5-25] 1 inhalation INHALATION QAM 04/05/21 [History] Metoprolol Tartrate [Lopressor] 25 mg PO QAM 10/24/21 [History] Vitamin B Complex 1 each PO DAILY 10/24/21 [History] allopurinoL 300 mg PO DAILY 10/24/21 [History] Albuterol Inhaler [Ventolin Hfa Inhaler] 1 - 2 puff INHALATION Q6H PRN 05/20/22 [History] Cyclobenzaprine [Flexeril] 5 mg PO TID PRN #40 tablet 06/18/23 [Rx] HYDROcodone/APAP 5-325MG [Garwood 5-325] 1 tab PO Q4HR PRN #42 tab 06/18/23 [Rx] Sennosides/Docusate Sodium [Senna Plus 8.6-50 mg Softgel] 1 each PO DAILY PRN #20 capsule 06/18/23 [Rx] cefaDROXiL [Duricef] 500 mg PO Q12HR #10 cap 06/18/23 [Rx] Follow up Appointment(s)/Referral(s): Travis London DO [Doctor of Osteopathic Medicine] - 2 Weeks Randy Frye MD [Primary Care Provider] - 1 Week Activity/Diet/Wound Care/Special Instructions: Spine Discharge and Recovery Instructions Date of Surgery: 06/17/2023 Diagnosis: Lumbar spondylosis Procedure: L4-S1 laminectomy Medications: See medication list All medication refills should be obtained through your primary care doctor or your clinic spine surgeon. Please discuss prescription refills at your follow up appointment. Do not call the hospital for medication refills. Activity: Encourage ambulation with assist of walker, Up and about 6-8x daily PT/OT daily work on balance, strength and mobility Up in chair with all meals Shower daily Brace: Use brace when up and about, do not wear in bed or shower Dressing: Leave your dressing in place for a total of 3 days post operatively. Then you may remove your dressing and leave open to air. Keep the area clean and if not able to keep area clean, then cover with sterile gauze and tape. Showering: You may shower 3 days after your procedure allowing soap and water to run over incision. Do not scrub. Do not soak. Blot dry. Follow up: Please confirm a follow up appointment with your surgeon 2 weeks post operatively. Please make an appointment to follow up with your PCP in 1-2 weeks after surgery for evaluation 3 phase, 3-week plan POST OP WEEKS 1-3 1. Lifting/carrying/pushing/pulling limited to less than 5 pounds. 2. Do not sit for longer than 15 minutes at one time. Get up and walk around. Prolonged sitting is NOT advised. If you lay down, see if you can tolerate laying down on you front (belly side) 3. Walk for periods of 15 minutes = 1 mile but no longer; do it multiple times times each day. 4. Ice your low back after activity. POST OP WEEKS 3-6 1. Lifting limited to less than 20 pounds. 2. Do not sit for longer than 30 minutes at a time. Frequently change positions. Use a sit-to stand workstation or take frequent breaks from sitting if you have returned to work. 3. Walk for 30 minutes each day. If possible, do these three or more times a day POST OP WEEKS 6+ At your 6-week appointment we will give you a physical therapy referral to focus on a core stabilization and strengthening program. You should also work on leg & buttock strengthening, hamstring & quadriceps stretching, and continue a low impact aerobic activity program such as swimming, walking, or riding a stationary bicycle. During the initial 6 weeks after your surgery, you are at the highest risk of re-injuring your spine. You should generally avoid BLTs (bending, lifting and twisting combination motions) and follow the above guidelines to reduce the chance of reinjury. You can anticipate post op appointments in our office at approximately 3 weeks and 6 weeks after your surgery. INCISION CARE: If your incision is not draining you do NOT need to cover it with a dressing. Keep your incision clean, dry and intact. In most cases, we apply skin glue, virgie or sutures to the incision at the time of surgery. This will be like a crust or have the appearance of a scab and will fall off in time on its own. The stitches or virgie need to be removed at 3 weeks post op appointment. You may begin to shower 3 days after surgery (this allows the glue to ewing well). However, please avoid scrubbing the incision site or peeling off any of the skin glue. This will ensure optimal healing of your incision. Also, during this time avoid soaking the incision area in water - this includes swimming pools, hot tubs or baths. No ointments, lotions or oils on the incision until your surgeon allows. Leave virgie, sutures or glue in place. Neurological dysfunction that comes on suddenly can also be a sign of a stroke. Below some common symptoms of a stroke are listed: B - balance difficulty such as sudden onset walking or leaning to one side - NEW E - eye problem such as sudden double vision or trouble seeing on one side - NEW F - Facial weakness or numbness on one side - NEW A - Arm or leg weakness or numbness on one side - NEW S - Slurred speech or difficulty with word finding - NEW T - Time is BRAIN! Call 911 as soon as you recognize these symptoms Diet: Consume a regular diet rich in vegetables and lean protein such as chicken or fish. You should consume in a ratio of approximately 20% fats|40% carbohydrates|40%protein. Vegetables, sweet potatoes, brown rice or quinoa are examples of good carbohydrates. Chips, white bread, cookies and sweets/sugar are examples of bad carbohydrates. Limit your bad carbs, go wild with good carbs. "Life's Simple 7" Guidelines as per [place] [employer] These will help you reclaim your life after surgery and proof technician helper in your recovery, keeping in mind your restrictions. (1) Get Active. Physical activity can help people lose weight, control high blood pressure and cholesterol, feel emotionally better, and sleep better. (2) Control Cholesterol. Avoid a diet high in saturated fat, trans fat, & cholesterol. Limit whole milk & cream, ice cream, butter, egg yolks, processed meats (like sausage and hot dogs), and fatty meats. Choose healthy foods that are low in saturated fat, trans fat and cholesterol which include: Fruits and vegetables, fiber rich grain products (like whole grain pasta and brown rice), lean meat such as chicken, fish, nuts, seeds, and legumes. (3) Eat Better. Eat small portions. Shop at the grocery with a list and do not stray from it. Tips for a healthy diet include: Limit sodium intake to less than 1500mg daily, avoid prepackaged, processed, and fast foods, choose a diet rich in fruits, vegetables, and whole grain, high fiber foods, and limit saturated & cholesterol in your diet. (4) Manage Blood Pressure. If you have high blood pressure, you should have a cuff at home so that you can check your blood pressure regularly. Be sure you have a good cuff. An arm one is generally better than a wrist one. Bring the cuff to a doctor's appointment to validate that the measurements that your cuff are taking are accurate. Take your blood pressure twice daily when you are sitting down and relaxing. Record the numbers in a log and bring this log with you to your doctors' appointments. (5) Lose Weight if your BMI is above 25. A healthy BMI is between 19-25. To calculate Your BMI, you may use a Standard BMI Calculator on the NIH BMI website: <www.nhlbi.nih.gov/guidelines/obesity/BMI/bmicalc.htm>. Weigh oneself daily. If you are overweight, set a goal to lose weight. A pound a week loss if needed is a good target. (6) Reduce Blood Sugar. Limit foods and liquids with "added sugars." (Added sugars include sucrose, fructose, glucose, maltose, dextrose, high fructose corn syrup, corn syrup, concentrated fruit juice and honey). (7) Stop Smoking. If you smoke, quitting smoking is one of the best things that you can do for your health. Smoking increases your risk of heart attack, stroke, and peripheral vascular disease, which is a build-up of plaque in your arteries. Please discard all the cigarettes and lighters in your house. Have a plan for what you will do when you have the urge to smoke. Direct and second- hand smoke shortens your life as well as the lives of your family, friends and others around you. For your health and the health of those around you, please consider quitting! Proper Bending Body Mechanics: Maintain a wide stance with one foot slightly in front of the other. Keep your back straight. Bend utilizing the strength in your hips and knees. Do not bend at the waist. Maintain the lifted object at your waist-level close to your body. Avoid lifting weight that causes immediately pain or pain anywhere in the body afterwards. Smoking/Nicotine If there was ever one thing that you could do to increase your overall health, decrease your risk of cardiovascular problems by about 39% the second you make the choice, it is to STOP SMOKING. Your body's most instant gratification is the second you stop smoking. We have all heard the studies, read the articles but it is true, smoking is extremely bad for your overall health, and moreover it is detrimental to your bone health. Nicotine, IN ANY FORM, kills bone cells, prevents your body from healing fractures, and significantly prolongs healing after surgery. In spine surgery specifically, it increases your risk of not healing your bones to create a fusion and increases your risk of having a revision surgery due to this up to 60%. I know it is hard. I know it feels impossible. But there are ways. Take control of your life. We are here to help you through it. And when you are ready, ask us and we can direct you to help if you desire. Use the START Plan to Quit Smoking (please visit the Helpguide.org website listed below for more information): S = Set a quit date. Choose a date within the next 2 weeks, so you have enough time to prepare without losing your motivation to quit. If you mainly smoke at work, quit on the weekend, so you have a few days to adjust to the change. T = Tell family, friends, and co-workers that you plan to quit. Let your friends and family in on your plan to quit smoking and tell them you need their support and encouragement to stop. Look for a quit ca who wants to stop smoking as well. You can help each other get through the rough times. A = Anticipate and plan for the challenges you'll face while quitting. Most people who begin smoking again do so within the first 3 months. You can help yourself make it through by preparing ahead for common challenges, such as nicotine withdrawal and cigarette cravings. R = Remove cigarettes and other tobacco products from your home, car, and work. Throw away all your cigarettes (no emergency pack!), lighters, ashtrays, and matches. Wash your clothes and freshen up anything that smells like smoke. Shampoo your car, clean your drapes and carpet, and steam your furniture. T = Talk to your doctor about getting help to quit. Your doctor can prescribe medication to help with withdrawal and suggest other alternatives. If you can't see a doctor, you can get many products over the counter at your local pharmacy or grocery store, including the nicotine patch, nicotine lozenges, and nicotine gum. Resources for Quitting Smoking: <https://www.[place].gov/documents/[facility]/Quit_Tobacco_Resources_for_patients_313 480_7.pdf> Supplementation: Take recommended dosages of Vitamin D and Calcium to help fortify your bones and help them to heal. See your health maintenance packet for dosages and recommended levels. DVT/VTE prophylaxis: You will be given compression stockings from the hospital. Wear these daily for the first two weeks after surgery. You may take them off at night. You may be prescribed a medication to help thin your blood. Take this as directed. If you are not prescribed this medication, early and frequent ambulation has been shown to be the best prophylaxis to deep vein thrombosis and sequelae related to this event. Discharge Disposition: HOME WITH HOME HEALTH SERVICES
== END 2023-06-18 13:03 | disposition home health service (06) ==
LOC: OR 05:42 → 4SSUR 09:53 → OR 06-18 13:03
PROVIDERS: ATTEND Orthopaedic Surgery
DX: M48.062 Spinal stenosis, lumbar region with neurogenic claudication (principal); M47.26 Other spondylosis with radiculopathy, lumbar region; M51.36 Other intervertebral disc degeneration, lumbar region; R53.1 Weakness; E78.5 Hyperlipidemia, unspecified; J44.9 Chronic obstructive pulmonary disease, unspecified; I10 Essential (primary) hypertension; G62.9 Polyneuropathy, unspecified; G47.30 Sleep apnea, unspecified; Z79.82 Long term (current) use of aspirin; Z79.899 Other long term (current) drug therapy; Z88.5 Allergy status to narcotic agent; Z79.51 Long term (current) use of inhaled steroids; Z86.711 Personal history of pulmonary embolism
CPT/HCPCS: 97161; 80053; 85025; 72100; 63047; 63048; J3370; J1100; J2001; J0690; J2405; J1170; J0665

== ENCOUNTER → 2023-12-17 | Outpatient (CLI) | payer MEDICARE ==
--- NOTE | 2023-12-17 11:19 | US ---
EXAMINATION TYPE: US kidneys/renal and bladder DATE OF EXAM: 12/17/2023 COMPARISON: NONE CLINICAL INDICATION: Male, 78 years old with history of R10.9 ABDOMINAL PAIN; left flank pain TECHNIQUE: Grayscale and color Doppler imaging of the bilateral kidneys and urinary bladder: FINDINGS: EXAM MEASUREMENTS: Right Kidney: 11.3 x 5.5 x 4.6 cm Left Kidney: 12.2 x 6.6 x 4.0 cm Right Kidney: No hydronephrosis or masses seen Left Kidney: No hydronephrosis or masses seen Bladder: Anechoic Bilateral Jets seen: no Renal cortex thickness and echogenicity is maintained. No nephrolithiasis. IMPRESSION: No acute process. [facility], Workstation: [facility], 12/17/2023 11:16 AM
== END | disposition home or self-care (01) ==
LOC: RADUSWWP 08:28
PROVIDERS: ATTEND Internal Medicine
DX: R10.9 Unspecified abdominal pain (principal)
CPT/HCPCS: 76770

== ENCOUNTER 2023-12-22 12:02 | Emergency (ER) | payer MEDICARE ==
[2023-12-22] MEDS: HYDROmorphone 0.5 MG/0.5 ML SYRINGE IVP STA ×2 (13:02→14:54)
[2023-12-22 13:06] LABS: Basophils % (A) 0 %; Eosinophils # (A) 0.1 k/uL (0-0.7); Eosinophils % (A) 2 %; HCT 42.9 % (39.0-53.0); Lymphocytes # (A) 1.5 k/uL (1.0-4.8); Lymphocytes % (A) 16 %; MCH 29.3 pg (25.0-35.0); MCHC 32.6 g/dL (31.0-37.0); MCV 89.7 fL (80.0-100.0); Mean Platelet Volume 7.1; Monocytes # (A) 0.5 k/uL (0-1.0); Monocytes % (A) 5 %; Neutrophils % (A) 76 %; Platelet Count 281 k/uL (150-450); RBC 4.78 m/uL (4.30-5.90); RDW 13.9 % (11.5-15.5); WBC 9.3 k/uL (3.8-10.6)
[2023-12-22 13:17] LABS: ALT 28 U/L (4-49); AST 33 U/L (17-59); African American GFR (CKD) >90 (>60 ml/min/1.73 sqM); Albumin 4.2 g/dL (3.5-5.0); Alkaline Phosphatase 92 U/L (38-126); Anion Gap 6 mmol/L; Blood Urea Nitrogen 16 mg/dL (9-20); Calcium 9.5 mg/dL (8.4-10.2); Carbon Dioxide 34 mmol/L (22-30); Chloride 103 mmol/L (98-107); Glucose 116 mg/dL (74-99); Non-African American GFR(CKD) 89 (>60 ml/min/1.73 sqM); Potassium 4.1 mmol/L (3.5-5.1); Sodium 143 mmol/L (137-145); Total Bilirubin 0.7 mg/dL (0.2-1.3); Total Protein 6.8 g/dL (6.3-8.2)
--- NOTE | 2023-12-22 13:38 | CT ---
EXAMINATION TYPE: CT abdomen pelvis wo con CT DLP: 1431.3 mGycm, Automated exposure control for dose reduction was used. DATE OF EXAM: 12/22/2023 1:21 PM COMPARISON: Renal ultrasound 12/17/2023 CLINICAL INDICATION:Male, 78 years old with history of pain; LEFT FLANK PAIN TECHNIQUE: Standard CT of the abdomen and pelvis without IV or oral contrast. Lack of IV or oral co ntrast limits evaluation of solid and hollow organ viscera. Coronal and sagittal reformats were perfo rmed. FINDINGS: LOWER CHEST: Visualized lung bases are clear. Mild prominence of the heart. ABDOMEN LIVER: Diffusely hypoattenuating parenchyma. GALLBLADDER AND BILE DUCTS: Unremarkable. PANCREAS: Unremarkable. SPLEEN: Mildly enlarged measuring 15.1 cm in CC dimension. ADRENAL GLANDS: Unremarkable. KIDNEYS AND URETERS: No evidence of hydronephrosis. Nonobstructive left lower pole 2 mm calculus. No definitive ureteral calculus. PELVIS BLADDER: Unremarkable REPRODUCTIVE: Unremarkable. ABDOMEN & PELVIS STOMACH AND BOWEL: Stomach and duodenum are unremarkable. Scattered colonic diverticulosis without ev idence for acute diverticulitis. No focal wall thickening or surrounding inflammatory changes. No faustina dence of bowel obstruction. PERITONEUM: No evidence of pneumoperitoneum or free fluid. VASCULATURE: No evidence of aortic aneurysm. Pelvic phleboliths. MUSCULOSKELETAL: No acute osseous abnormalities. 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 This creates streak artifact which limits evaluation. Please referred to dedicated CT lumbar spin e of same day for findings. Degenerative changes of the pubic symphysis. Mild osteoarthritic changes of the left hip. Degenerative changes of both outside joints. LYMPH NODES: No gross evidence for lymphadenopathy. SOFT TISSUE/ABDOMINAL WALL: Small fat filled umbilical hernia. IMPRESSION: 1. No CT evidence for acute abdominal/pelvic process within limitations of a noncontrast exam. 2. Nonobstructive left renal punctate calculus. 3. Mild splenomegaly. 4. Colonic diverticulosis. [facility], , 12/22/2023 1:36 PM
--- NOTE | 2023-12-22 13:45 | CT ---
EXAMINATION TYPE: CT lumbar spine wo con CT DLP: 1431.6 mGycm, Automated exposure control for dose reduction was used. DATE OF EXAM: 12/22/2023 1:21 PM COMPARISON: CT abdomen and pelvis 12/22/2023, MR lumbar spine 03/26/2023, CT lumbar spine 03/26/2023. CLINICAL INDICATION:Male, 78 years old with history of pain; PHH, LEFT FLANK PAIN TECHNIQUE: Multiple axial images were obtained from the midportion of T11 through the sacroiliac prateek nts. Soft tissue and bone windows in coronal and sagittal planes were obtained and reviewed. Contrast used: none. Oral contrast used: none. FINDINGS: Alignment: There are 5 lumbar type vertebral bodies within normal alignment. Bone: Postsurgical changes from laminectomy at L4-L5 with edema demonstrated. No definitive fluid co llection identified within limitations of a noncontrast exam. Severe degeneration changes are seen th roughout the spine with osteophytes, disc space narrowing, facet joint arthropathy and vacuum disks p henomenon. Osteophyte formation of the sacroiliac joints with vacuum phenomenon bilaterally. Discs: T12-L1: No spinal canal or neural foraminal stenosis is identified. L1-L2: Facet joint arthropathy and disc bulging result with mild to moderate spinal canal stenosis an d mild bilateral neural foraminal stenosis. L2-L3: Facet joint arthropathy and disc bulging result with moderate to severe spinal canal stenosis and moderate bilateral neural foraminal stenosis. L3-L4: Facet joint arthropathy and disc bulging result with moderate spinal canal stenosis and modera te bilateral neural foraminal stenosis. L4-L5: Postsurgical changes from laminectomy with suggested mild central canal stenosis with posterio r disc osteophyte complex, ligamentum flavum buckling and bilateral facet arthropathy. Moderate right and [id number] left neuroforaminal stenosis. L5-S1: Postsurgical changes from laminectomy. No significant central canal stenosis. Bilateral facet arthropathy with moderate bilateral neuroforaminal stenosis. Other: Please refer to dedicated CT abdomen and pelvis of same day for findings. IMPRESSION: Postsurgical changes from L4-L5 laminectomy. No gross evidence of complication within the limitations of a noncontrast CT. Consider further evaluation with MRI as clinically indicated. Moderate multilevel degenerative disc disease and facet arthropathy redemonstrated. [facility], , 12/22/2023 1:43 PM
[2023-12-22] MEDS: ONDANSETRON 4 MG/2 ML VIAL IVP STA (14:05)
--- NOTE | 2023-12-22 14:23 | ED ---
Back Pain HPI - General Chief Complaint: Back Pain/Injury Stated Complaint: Back Pain Time Seen by Provider: 12/22/23 12:18 Source: patient, RN notes reviewed Limitations: no limitations - History of Present Illness Initial Comments: 78-year-old male presents emergency department with chief complaint of low back pain, left flank pain. Patient states that he had surgery with Dr. London for a laminectomy. Patient states that he has been well open last week he has had this pain. He does have some urinary frequency but he contributes this to his diuretic. Patient denies any fevers or chills. He denies any bowel, bladder and cons retention no saddle anesthesias. - Related Data Home Medications Medication Instructions Recorded Confirmed Aspirin EC [Ecotrin Low Dose] 81 mg PO DAILY 01/20/20 06/12/23 Multivit-Min/FA/Lycopen/Lutein 1 tab PO DAILY 01/20/20 06/17/23 [Centrum Silver Tablet] Simvastatin [Zocor] 20 mg PO HS 01/20/20 06/17/23 amLODIPine [Norvasc] 10 mg PO QAM 01/20/20 06/17/23 hydroCHLOROthiazide [Hydrodiuril] 25 mg PO DAILY 01/20/20 06/17/23 lisinopriL [Zestril] 20 mg PO BID 01/20/20 06/17/23 Fluticasone/Umeclidin/Vilanter 1 inhalation INHALATION QAM 04/05/21 06/17/23 [Trelegy Ellipta 100-62.5-25] Metoprolol Tartrate [Lopressor] 25 mg PO QAM 10/24/21 06/17/23 Vitamin B Complex 1 each PO DAILY 10/24/21 06/17/23 allopurinoL 300 mg PO DAILY 10/24/21 06/17/23 Albuterol Inhaler [Ventolin Hfa 1 - 2 puff INHALATION Q6H PRN 05/20/22 06/12/23 Inhaler] Previous Rx's Medication Instructions Recorded Cyclobenzaprine [Flexeril] 5 mg PO TID PRN #40 tablet 06/18/23 HYDROcodone/APAP 5-325MG [[place] 1 tab PO Q4HR PRN #42 tab 06/18/23 5-325] Sennosides/Docusate Sodium [Senna 1 each PO DAILY PRN #20 capsule 06/18/23 Plus 8.6-50 mg Softgel] cefaDROXiL [Duricef] 500 mg PO Q12HR #10 cap 06/18/23 HYDROcodone/APAP 7.5-325MG [[place] 1 tab PO Q6HR PRN 3 Days #12 tab 12/22/23 7.5-325] Lidocaine 5% Patch [Lidoderm] 1 patch TOPICAL DAILY #10 patch 12/22/23 methocarbamoL [Robaxin] 500 mg PO TID PRN #15 tab 12/22/23 Allergies Allergy/AdvReac Type Severity Reaction Status Date / Time oxycodone AdvReac Nausea & Verified 12/22/23 12:15 Vomiting Review of Systems ROS Statement: Those systems with pertinent positive or pertinent negative responses have been documented in the HPI. ROS Other: All systems not noted in ROS Statement are negative. Past Medical History Past Medical History: COPD, CVA/TIA, Hypertension, Pulmonary Embolus (PE), Sleep Apnea/CPAP/BIPAP Additional Past Medical History / Comment(s): CVA 2004, has double vision. Neuropathy BLE. Hx kidney stones. Uses CPAP. PE 01/2020. History of Any Multi-Drug Resistant Organisms: None Reported Past Surgical History: Back Surgery, Joint Replacement Additional Past Surgical History / Comment(s): Total Rt hip. Colonoscopy. Cataracts bilat. PAIN CLINIC PROCEDURES Past Anesthesia/Blood Transfusion Reactions: No Reported Reaction, Motion Sickness Additional Past Anesthesia/Blood Transfusion Reaction / Comment(s): no hx blood transfusion Past Psychological History: No Psychological Hx Reported Smoking Status: Never smoker Past Alcohol Use History: Daily Past Drug Use History: None Reported - Past Family History Father Family Medical History: Respiratory Disorder Additional Family Medical History / Comment(s): w/ mesothelioma General Exam Limitations: no limitations General appearance: alert, in no apparent distress Head exam: Present: atraumatic, normocephalic, normal inspection Eye exam: Present: normal appearance, PERRL, EOMI. Absent: scleral icterus, conjunctival injection, periorbital swelling ENT exam: Present: normal exam, normal oropharynx, mucous membranes moist Neck exam: Present: normal inspection, full ROM. Absent: tenderness, meningismus, lymphadenopathy Respiratory exam: Present: normal lung sounds bilaterally. Absent: respiratory distress, wheezes, rales, rhonchi, stridor Cardiovascular Exam: Present: regular rate, normal rhythm, normal heart sounds. Absent: systolic murmur, diastolic murmur, rubs, gallop, clicks GI/Abdominal exam: Present: soft, normal bowel sounds. Absent: distended, tenderness, guarding, rebound, rigid Back exam: Present: full ROM, tenderness, CVA tenderness (L), paraspinal tenderness. Absent: CVA tenderness (R), vertebral tenderness Neurological exam: Present: alert, oriented X3, CN II-XII intact, reflexes normal. Absent: motor sensory deficit Course Vital Signs 12/22/23 12/22/23 12:10 15:00 Temperature 97.5 F L 97.7 F Pulse Rate 60 48 L Respiratory 18 16 Rate Blood Pressure 136/73 124/70 O2 Sat by Pulse 97 97 Oximetry Medical Decision Making - Medical Decision Making Was pt. sent in by a medical professional or institution (, PA, [facility] PHYSICIAN, urgent care, hospital, or penitentiary...) When possible be specific @ -No Did you speak to anyone other than the patient for history (EMS, parent, family, police, friend...)? What history was obtained from this source @ -No Did you review nursing and triage notes (agree or disagree)? Why? @ -I reviewed and agree with nursing and triage notes Were old charts reviewed (outside hosp., previous admission, EMS record, old EKG, old radiological studies, urgent care reports/EKG's, penitentiary records)? Report findings @ -No old charts were reviewed Differential Diagnosis (chest pain, altered mental status, abdominal pain women, abdominal pain men, vaginal bleeding, weakness, fever, dyspnea, syncope, headache, dizziness, GI bleed, back pain, seizure, CVA, palpatations, mental health, musculoskeletal)? @ -Differential Back Pain: Strain, zoster, cauda equina syndrome, epidural abscess, vertebral osteomyelitis, discitis, fracture, subluxation, disc herniation, DJD, spinal stenosis, dissection, AAA, pancreatitis, peptic ulcer disease, pyelonephritis, kidney stone, this is not meant to be an all-inclusive list. EKG interpreted by me (3pts min.). @ -None X-rays interpreted by me (1pt min.). @ -None done CT interpreted by me (1pt min.). @ -CT lumbar spine, CT abdomen pelvis showing no acute intra-abdominal process, postsurgical lumbar changes otherwise no acute process found on CT U/S interpreted by me (1pt. min.). @ -None done What testing was considered but not performed or refused? (CT, X-rays, U/S, labs)? Why? @ -None What meds were considered but not given or refused? Why? @ -None Did you discuss the management of the patient with other professionals (professionals i.e. , PA, [facility] PHYSICIAN, lab, RT, psych nurse, dialysis social worker, manager photo, te acher, bank secrecy act officer, block and case maker)? Give summary @ -No Was smoking cessation discussed for >3mins.? @ -No Was critical care preformed (if so, how long)? @ -No Were there social determinants of health that impacted care today? How? (Homelessness, low income, unemployed, alcoholism, drug addiction, transportation, low edu. Level, literacy, decrease access to med. care, halfway, rehab)? @ -No Was there de-escalation of care discussed even if they declined (Discuss DNR or withdrawal of care, Hospice)? DNR status @ -No What co-morbidities impacted this encounter? (DM, HTN, Smoking, COPD, CAD, Cancer, CVA, ARF, Chemo, Hep., AIDS, mental health diagnosis, sleep apnea, morbid obesity)? @ -None Was patient admitted / discharged? Hospital course, mention meds given and route, prescriptions, significant lab abnormalities, going to OR and other pertinent info. @ -Discharge patient's pain is improved. Patient's pain is muscle skeletal in nature patient has no acute findings on laboratory studies or CT. Patient is discharged in stable condition. Patient has no red flag symptoms. Undiagnosed new problem with uncertain prognosis? @ -No Drug Therapy requiring intensive monitoring for toxicity (Heparin, Nitro, Insulin, Cardizem)? @ -No Were any procedures done? @ -No Diagnosis/symptom? @ -Back pain, flank pain Acute, or Chronic, or Acute on Chronic? @ -Acute] Uncomplicated (without systemic symptoms) or Complicated (systemic symptoms)? @ -Uncomplicated Side effects of treatment? @ -No Exacerbation, Progression, or Severe Exacerbation? @ -No Poses a threat to life or bodily function? How? (Chest pain, [place], ME, pneumonia, PE, COPD, DKA, ARF, appy, cholecystitis, CVA, Diverticulitis, Homicidal, Suicidal, threat to staff... and all critical care pts) @ -No - Lab Data Result diagrams: 12/22/23 12:59 12/22/23 12:59 Lab Results 12/22/23 12/22/23 12/22/23 Range/Units 12:59 12:59 14:11 WBC 9.3 (3.8-10.6) k/uL RBC 4.78 (4.30-5.90) m/uL Hgb 14.0 (13.0-17.5) gm/dL Hct 42.9 (39.0-53.0) % MCV 89.7 (80.0-100.0) fL MCH 29.3 (25.0-35.0) pg MCHC 32.6 (31.0-37.0) g/dL RDW 13.9 (11.5-15.5) % Plt Count 281 (150-450) k/uL MPV 7.1 Neutrophils % 76 % Lymphocytes % 16 % Monocytes % 5 % Eosinophils % 2 % Basophils % 0 % Neutrophils # 7.0 (1.3-7.7) k/uL Lymphocytes # 1.5 (1.0-4.8) k/uL Monocytes # 0.5 (0-1.0) k/uL Eosinophils # 0.1 (0-0.7) k/uL Basophils # 0.0 (0-0.2) k/uL Sodium 143 (137-145) mmol/L Potassium 4.1 (3.5-5.1) mmol/L Chloride 103 (98-107) mmol/L Carbon Dioxide 34 H (22-30) mmol/L Anion Gap 6 mmol/L BUN 16 (9-20) mg/dL Creatinine 0.76 (0.66-1.25) mg/dL Est GFR (CKD-EPI)AfAm >90 (>60 ml/min/1.73 sqM) Est GFR (CKD-EPI)NonAf 89 (>60 ml/min/1.73 sqM) Glucose 116 H (74-99) mg/dL Calcium 9.5 (8.4-10.2) mg/dL Total Bilirubin 0.7 (0.2-1.3) mg/dL AST 33 (17-59) U/L ALT 28 (4-49) U/L Alkaline Phosphatase 92 (38-126) U/L Total Protein 6.8 (6.3-8.2) g/dL Albumin 4.2 (3.5-5.0) g/dL Urine Color Yellow Urine Appearance Clear (Clear) Urine pH 6.5 (5.0-8.0) Ur Specific [place] 1.014 (1.001-1.035) Urine Protein Negative (Negative) Urine Glucose (UA) Negative (Negative) Urine Ketones Negative (Negative) Urine Blood Negative (Negative) Urine Nitrite Negative (Negative) Urine Bilirubin Negative (Negative) Urine Urobilinogen <2.0 (<2.0) mg/dL Ur Leukocyte Esterase Negative (Negative) Disposition Clinical Impression: Flank pain, Back pain Disposition: HOME SELF-CARE Condition: Stable Instructions (If sedation given, give patient instructions): Back Pain (ED) Additional Instructions: Please return to the Emergency Department if symptoms worsen or any other concerns. Prescriptions: Lidocaine 5% Patch [Lidoderm] 1 patch TOPICAL DAILY #10 patch HYDROcodone/APAP 7.5-325MG [[place] 7.5-325] 1 tab PO Q6HR PRN 3 Days #12 tab PRN Reason: pain methocarbamoL [Robaxin] 500 mg PO TID PRN #15 tab PRN Reason: muscle spasms Is patient prescribed a controlled substance at d/c from ED?: Yes When asked, does pt state using other controlled substances?: No If prescribed controlled substance>3 days was MAPS reviewed?: Prescribed <3 Days If opioid is for acute pain is fill amount 7 days or less?: Yes If Rx opioid, was Start Talking consent form obtained?: Yes Referrals: Randy Frye MD [Primary Care Provider] - 1-2 days Time of Disposition: 14:48
[2023-12-22] MEDS: KETOROLAC 15 MG/ML 1 ML VIAL IVP STA (14:26)
[2023-12-22 14:30] LABS: Appearance,Urine Clear (Clear); Bilirubin,Urine Negative (Negative); Blood,Urine Negative (Negative); Color,Urine Yellow; Glucose,Urine (UA) Negative (Negative); Ketones,Urine Negative (Negative); Leukocyte Esterase,Urine Negative (Negative); Nitrite,Urine Negative (Negative); PH, Urine 6.5 (5.0-8.0); Protein,Urine Negative (Negative); Specific Gravity,Urine 1.014 (1.001-1.035); Urobilinogen,Urine <2.0 mg/dL (<2.0)
[2023-12-22] MEDS: LIDOCAINE 4% PATCH TOPICAL ONE (14:54)
[2023-12-22 15:04] VITALS: BP 124/70; PULSE 48; RESP 16; TEMP 97.7
== END 2023-12-22 15:04 | disposition home or self-care (01) ==
LOC: EC 12:02
CPT/HCPCS: 36415; 72131; 74176; 80053; 81003; 85025; 96374; 96375; 96376; 99283

== ENCOUNTER → 2024-01-07 | Outpatient (CLI) | payer MEDICARE ==
--- NOTE | 2024-01-07 13:01 | MR ---
EXAMINATION TYPE: MR lumbar spine wo con DATE OF EXAM: 01/07/2024 COMPARISON: 03/26/2023 HISTORY: 78-year-old male M54.50 M48.061, M47.816, Left side back pain TECHNIQUE: Multiplanar, multisequence images of the lumbar spine were acquired without IV contrast. FINDINGS: Moderate degenerative disc disease with desiccated disks and numerous scattered small endplates gross ly no evidence of minimal to mild disc bulging scattered throughout. More moderate to severe degenera tive disc disease L4-L5 and L5-S1. Some associated fatty Modic type II endplate change scattered thro ughout. Posterior annular fissure at L4-L5. Severe hypertrophic facet arthropathy mid to lower lumbar spine. Vertebral body heights are preserved and alignment are maintained. Conus medullaris is normal. Heterogeneous red marrow hyperplasia along with the fatty Modic type II endplate change. Interval L4 and L5 laminectomy changes. Small fluid collection measuring 2.3 cm craniocaudal by 8 mm AP and 8 mm wide along the right laminectomy bed. There has been decompression of the previous focal severe spinal canal stenosis at L4-L5. Mild congenital spinal canal narrowing remains throughout. In addition, the congenital canal narrowing in combination with posterior bulging disc contributes to a focal moderate to severe spinal canal stenosis at L2-L3 with crowding of the cauda equina nerve ro ots and near complete effacement of the CSF signal here. On the right, there are moderate neuroforaminal stenoses at L4-L5 and L5-S1, mild at L2-L3 and L3-L4. On the left, there is moderate to severe neuroforaminal stenosis at L4-L5, moderate at L5-S1, and mil d at L2-L3 and L3-L4. Lateral disc osteophyte complexes in both sides L5-S1 abuts the extraforaminal L5 nerve roots on both sides. Lateral disc bulge L4-L5 probably abuts the extraforaminal left L4 nerve root as well. Small parapelvic cysts in both kidneys. IMPRESSION: 1. Moderate multilevel degenerative disc disease, more moderate to severe in the lower lumbar spine. Additional severe hypertrophic facet arthropathy mid to lower lumbar spine. Changes are superimposed on a congenital spinal canal stenosis. 2. Interval laminectomies L4 and L5 levels with decompression of the previous L4-L5 canal stenosis. A residual disc bulge with posterior annular fissure is noted here but without any significant thecal sac compression. 3. A 2.3 x 0.8 x 0.8 cm fluid collection within the right laminectomy bed, probably a postoperative s eroma. Follow-up as clinically indicated. 4. Moderate to severe focal spinal canal stenosis remains at L2-L3 due to combination of disc bulge a nd congenital spinal canal stenosis. 5. Variable neuroforaminal stenoses as outlined above. Moderate to severe on the left at L4-L5. 6. In addition, lateral disc osteophyte complexes at L5-S1 may abut the bilateral extraforaminal L5 n erve roots. 7. Left lateral disc bulge at L4-L5 may abut the extraforaminal left L4 nerve root. [facility], , 01/07/2024 12:58 PM
== END | disposition home or self-care (01) ==
LOC: RADMRIMAIN 10:59
PROVIDERS: ATTEND Orthopaedic Surgery
CPT/HCPCS: 72148

== ENCOUNTER 2024-01-23 11:53 | Inpatient (IN) | payer MEDICARE ==
--- NOTE | 2024-01-23 12:32 | ED ---
General Adult HPI - General Source: patient, RN notes reviewed, old records reviewed Mode of arrival: wheelchair Limitations: no limitations <Robby Draper - Last Filed: 01/23/24 15:15> <Johnnie Beth - Last Filed: 01/23/24 16:25> - General Chief complaint: Chest Pain Stated complaint: chest pain Time Seen by Provider: 01/23/24 12:00 - History of Present Illness Initial comments: This is a 78-year-old male who presents to the emergency department complaining of chest pain that sharp in nature. Patient states it only occurs when he takes a deep breath. Patient states he has a history of clots and is not on any blood thinners. Patient went to see Dr. Frye and Dr. Frye wanted the patient brought to the emergency department to be evaluated. Patient denies chest pain while he is lying here and only occurs with a deep breath. Patient states he is not short of breath. Patient states a couple days ago he had some right leg pain but he no longer has any pain there. Patient states he was never given an explanation as to why he had a clot in the past and he was only on thinners for 6 months. Patient denies abdominal pain patient has nausea vomit diarrhea. (Robby Draper) - Related Data Home Medications Medication Instructions Recorded Confirmed Aspirin EC [Ecotrin Low Dose] 81 mg PO DAILY 01/20/20 01/23/24 Multivit-Min/FA/Lycopen/Lutein 1 tab PO DAILY 01/20/20 01/23/24 [Centrum Silver Tablet] Simvastatin [Zocor] 20 mg PO HS 01/20/20 01/23/24 amLODIPine [Norvasc] 10 mg PO DAILY 01/20/20 01/23/24 hydroCHLOROthiazide [Hydrodiuril] 25 mg PO DAILY 01/20/20 01/23/24 lisinopriL [Zestril] 20 mg PO BID 01/20/20 01/23/24 Fluticasone/Umeclidin/Vilanter 1 puff INHALATION RT-DAILY 04/05/21 01/23/24 [Trelegy Ellipta 100-62.5-25] Vitamin B Complex 1 cap PO DAILY 10/24/21 01/23/24 allopurinoL 300 mg PO DAILY 10/24/21 01/23/24 Albuterol Inhaler [Ventolin Hfa 1 - 2 puff INHALATION RT-Q6H PRN 05/20/22 1 03/24/23 Inhaler] Metoprolol Tartrate [Lopressor] 50 mg PO DAILY 01/23/24 01/23/24 Minocycline [Minocin] 50 mg PO DAILY 01/23/24 01/23/24 Allergies Allergy/AdvReac Type Severity Reaction Status Date / Time oxycodone AdvReac Nausea & Verified 01/23/24 14:53 Vomiting Review of Systems ROS Other: All systems not noted in ROS Statement are negative. <Robby Draper - Last Filed: 01/23/24 15:15> ROS Other: All systems not noted in ROS Statement are negative. <Johnnie Beth - Last Filed: 01/23/24 16:25> ROS Statement: Those systems with pertinent positive or pertinent negative responses have been documented in the HPI. Past Medical History Past Medical History: COPD, CVA/TIA, Hypertension, Pulmonary Embolus (PE), Sleep Apnea/CPAP/BIPAP Additional Past Medical History / Comment(s): CVA 2004, has double vision. Neuropathy BLE. Hx kidney stones. Uses CPAP. PE 01/2020. History of Any Multi-Drug Resistant Organisms: None Reported Past Surgical History: Back Surgery, Joint Replacement Additional Past Surgical History / Comment(s): Total Rt hip. Colonoscopy. Cataracts bilat. PAIN CLINIC PROCEDURES Past Anesthesia/Blood Transfusion Reactions: No Reported Reaction, Motion Sickness Additional Past Anesthesia/Blood Transfusion Reaction / Comment(s): no hx blood transfusion Past Psychological History: No Psychological Hx Reported Smoking Status: Never smoker Past Alcohol Use History: Daily Past Drug Use History: None Reported - Past Family History Father Family Medical History: Respiratory Disorder Additional Family Medical History / Comment(s): w/ mesothelioma <Robby Draper - Last Filed: 01/23/24 15:15> General Exam Limitations: no limitations <Robby Draper - Last Filed: 01/23/24 15:15> - General Exam Comments Initial Comments: GENERAL: Patient is well-developed and well-nourished. Patient is nontoxic and well- hydrated and is in mild distress. ENT: Neck is soft and supple. No significant lymphadenopathy is noted. Oropharynx is clear. Moist mucous membranes. Neck has full range of motion without eliciting any pain. EYES: The sclera were anicteric and conjunctiva were pink and moist. Extraocular movements were intact and pupils were equal round and reactive to light. Eyelids were unremarkable. PULMONARY: Unlabored respirations. Good breath sounds bilaterally. No audible rales rhonchi or wheezing was noted. CARDIOVASCULAR: There is a regular rate and rhythm without any murmurs gallops or rubs. ABDOMEN: Soft and nontender with normal bowel sounds. SKIN: Skin is clear with no lesions or rashes and otherwise unremarkable. NEUROLOGIC: Patient is alert and oriented x3. Cranial nerves II through XII are grossly intact. Motor and sensory are also intact. Normal speech, volume and content. Symmetrical smile. MUSCULOSKELETAL: Normal extremities with adequate strength and full range of motion. No lower extremity swelling or edema. No calf tenderness. LYMPHATICS: No significant lymphadenopathy is noted PSYCHIATRIC: Normal psychiatric evaluation. (Robby Draper) Course Vital Signs 01/23/24 01/23/24 01/23/24 11:59 12:30 13:10 Temperature 97.8 F 97.8 F Pulse Rate 70 63 62 Respiratory 20 18 18 Rate Blood Pressure 137/71 140/76 122/59 O2 Sat by Pulse 97 94 L 96 Oximetry Medical Decision Making - Lab Data Result diagrams: 01/23/24 12:26 01/23/24 12:26 <Robby Draper - Last Filed: 01/23/24 15:15> - Lab Data Result diagrams: 01/23/24 12:26 01/23/24 12:26 <Johnnie Beth - Last Filed: 01/23/24 16:25> - Medical Decision Making EKG is interpreted by myself. EKG shows sinus rhythm at 61 bpm WI intervals 193 QRS is 101 QT interval is 405 QTc C is 407. Patient's EKG shows no ST segment elevation or depression. Was pt. sent in by a medical professional or institution (JAMEL Douglas, CH[employer]ANT OPERATOR, urgent care, hospital, or alf...) When possible be specific @ -No Did you speak to anyone other than the patient for history (EMS, parent, family, police, friend...)? What history was obtained from this source @ -No Did you review nursing and triage notes (agree or disagree)? Why? @ -I reviewed and agree with nursing and triage notes Were old charts reviewed (outside hosp., previous admission, EMS record, old EKG, old radiological studies, urgent care reports/EKG's, alf records)? Report findings @ -No old charts were reviewed Differential Diagnosis? @ -Differential Chest Pain: Stable Angina, Unstable Angina, STEMI, NSTEMI Aortic Dissection, Pneumothorax, Musculoskeletal, Esophageal Spasm GERD, Cholecystitis, Pancreatitis, Zoster, this is not meant to be an all-inclusive list. EKG interpreted by me (3pts min.). @ -As above X-rays interpreted by me (1pt min.). @ -None done CT interpreted by me (1pt min.). @ -None done U/S interpreted by me (1pt. min.). @ -None done What testing was considered but not performed or refused? (CT, X-rays, U/S, labs)? Why? @ -None What meds were considered but not given or refused? Why? @ -None Did you discuss the management of the patient with other professionals (professionals i.e. , PA, CHANNEL PROCESS PLANT OPERATOR, lab, RT, psych nurse, social media intern, cloud systems architect, teacher, dental officer, keycase assembler)? Give summary @ -No Was smoking cessation discussed for >3mins.? @ -No Was critical care preformed (if so, how long)? @ -No Were there social determinants of health that impacted care today? How? (Homelessness, low income, unemployed, alcoholism, drug addiction, transportation, low edu. Level, literacy, decrease access to med. care, long term, rehab)? @ -No Was there de-escalation of care discussed even if they declined (Discuss DNR or withdrawal of care, Hospice)? DNR status @ -No What co-morbidities impacted this encounter? (DM, HTN, Smoking, COPD, CAD, Cancer, CVA, ARF, Chemo, Hep., AIDS, mental health diagnosis, sleep apnea, morbid obesity)? @ -None Was patient admitted / discharged? Hospital course, mention meds given and route, prescriptions, significant lab abnormalities, going to OR and other pertinent info. @ -Patient is awaiting CT chest to rule out PE and Dr. Beth will be taking over the care of this patient at 3 PM (Robby Draper) Patient care was signed out at shift change awaiting CT angiography. This is negative for central pulmonary embolism but does show some opacity concerning for pneumonia. Patient is covered with antibiotics. He is admitted to his primary care provider Dr. Frye who is aware of the patient. (Johnnie Beth) - Lab Data Lab Results 01/23/24 01/23/24 01/23/24 Range/Units 12:26 12:26 12:26 WBC 12.1 H (3.8-10.6) k/uL RBC 4.57 (4.30-5.90) m/uL Hgb 13.4 (13.0-17.5) gm/dL Hct 40.6 (39.0-53.0) % MCV 88.7 (80.0-100.0) fL MCH 29.3 (25.0-35.0) pg MCHC 33.1 (31.0-37.0) g/dL RDW 14.0 (11.5-15.5) % Plt Count 261 (150-450) k/uL MPV 7.1 Neutrophils % 78 % Lymphocytes % 15 % Monocytes % 5 % Eosinophils % 1 % Basophils % 0 % Neutrophils # 9.4 H (1.3-7.7) k/uL Lymphocytes # 1.8 (1.0-4.8) k/uL Monocytes # 0.6 (0-1.0) k/uL Eosinophils # 0.2 (0-0.7) k/uL Basophils # 0.0 (0-0.2) k/uL PT 10.2 (10.0-12.5) sec INR 0.9 (<1.2) APTT 24.6 (22.0-30.0) sec D-Dimer 1.01 H (<0.60) mg/L FEU Sodium 140 (137-145) mmol/L Potassium 3.8 (3.5-5.1) mmol/L Chloride 102 (98-107) mmol/L Carbon Dioxide 32 H (22-30) mmol/L Anion Gap 6 mmol/L BUN 15 (9-20) mg/dL Creatinine 0.72 (0.66-1.25) mg/dL Est GFR (CKD-EPI)AfAm >90 (>60 ml/min/1.73 sqM) Est GFR (CKD-EPI)NonAf >90 (>60 ml/min/1.73 sqM) Glucose 109 H (74-99) mg/dL Plasma Lactic Acid Fredrick (0.7-2.0) mmol/L Calcium 8.8 (8.4-10.2) mg/dL Total Bilirubin 0.5 (0.2-1.3) mg/dL AST 31 (17-59) U/L ALT 32 (4-49) U/L Alkaline Phosphatase 97 (38-126) U/L Troponin I (0.000-0.034) ng/mL Total Protein 6.3 (6.3-8.2) g/dL Albumin 3.8 (3.5-5.0) g/dL 01/23/24 01/23/24 Range/Units 12:26 12:26 WBC (3.8-10.6) k/uL RBC (4.30-5.90) m/uL Hgb (13.0-17.5) gm/dL Hct (39.0-53.0) % MCV (80.0-100.0) fL MCH (25.0-35.0) pg MCHC (31.0-37.0) g/dL RDW (11.5-15.5) % Plt Count (150-450) k/uL MPV Neutrophils % % Lymphocytes % % Monocytes % % Eosinophils % % Basophils % % Neutrophils # (1.3-7.7) k/uL Lymphocytes # (1.0-4.8) k/uL Monocytes # (0-1.0) k/uL Eosinophils # (0-0.7) k/uL Basophils # (0-0.2) k/uL PT (10.0-12.5) sec INR (<1.2) APTT (22.0-30.0) sec D-Dimer (<0.60) mg/L FEU Sodium (137-145) mmol/L Potassium (3.5-5.1) mmol/L Chloride (98-107) mmol/L Carbon Dioxide (22-30) mmol/L Anion Gap mmol/L BUN (9-20) mg/dL Creatinine (0.66-1.25) mg/dL Est GFR (CKD-EPI)AfAm (>60 ml/min/1.73 sqM) Est GFR (CKD-EPI)NonAf (>60 ml/min/1.73 sqM) Glucose (74-99) mg/dL Plasma Lactic Acid Fredrick 1.2 (0.7-2.0) mmol/L Calcium (8.4-10.2) mg/dL Total Bilirubin (0.2-1.3) mg/dL AST (17-59) U/L ALT (4-49) U/L Alkaline Phosphatase (38-126) U/L Troponin I <0.012 (0.000-0.034) ng/mL Total Protein (6.3-8.2) g/dL Albumin (3.5-5.0) g/dL Disposition <Robby Draper - Last Filed: 01/23/24 15:15> Is patient prescribed a controlled substance at d/c from ED?: No Time of Disposition: 16:25 <Johnnie Beth - Last Filed: 01/23/24 16:25> Clinical Impression: Chest pain, Pneumonia Disposition: ADMITTED IP TO THIS HOSP Condition: Stable Referrals: Randy Frye MD [Primary Care Provider] - 1-2 days
[2024-01-23 13:25] LABS: Basophils % (A) 0 %; Eosinophils # (A) 0.2 k/uL (0-0.7); Eosinophils % (A) 1 %; HCT 40.6 % (39.0-53.0); HGB 13.4 gm/dL (13.0-17.5); Lymphocytes # (A) 1.8 k/uL (1.0-4.8); Lymphocytes % (A) 15 %; MCH 29.3 pg (25.0-35.0); MCHC 33.1 g/dL (31.0-37.0); MCV 88.7 fL (80.0-100.0); Mean Platelet Volume 7.1; Monocytes # (A) 0.6 k/uL (0-1.0); Monocytes % (A) 5 %; Neutrophils # (A) 9.4 k/uL (1.3-7.7); Neutrophils % (A) 78 %; Platelet Count 261 k/uL (150-450); RBC 4.57 m/uL (4.30-5.90); WBC 12.1 k/uL (3.8-10.6)
[2024-01-23 13:40] LABS: INR 0.9 (<1.2); Partial Thromboplastin Time 24.6 sec (22.0-30.0); Prothrombin Time 10.2 sec (10.0-12.5)
[2024-01-23 13:48] LABS: ALT 32 U/L (4-49); AST 31 U/L (17-59); African American GFR (CKD) >90 (>60 ml/min/1.73 sqM); Albumin 3.8 g/dL (3.5-5.0); Alkaline Phosphatase 97 U/L (38-126); Anion Gap 6 mmol/L; Blood Urea Nitrogen 15 mg/dL (9-20); Calcium 8.8 mg/dL (8.4-10.2); Carbon Dioxide 32 mmol/L (22-30); Chloride 102 mmol/L (98-107); Glucose 109 mg/dL (74-99); Non-African American GFR(CKD) >90 (>60 ml/min/1.73 sqM); Potassium 3.8 mmol/L (3.5-5.1); Sodium 140 mmol/L (137-145); Total Bilirubin 0.5 mg/dL (0.2-1.3); Total Protein 6.3 g/dL (6.3-8.2)
--- NOTE | 2024-01-23 14:02 | XR ---
EXAMINATION TYPE: XR chest 2V DATE OF EXAM: 01/23/2024 1:18 PM COMPARISON: Chest radiographs from 02/27/2022 CLINICAL INDICATION: Male, 78 years old with history of difficulty breathing; TECHNIQUE: XR chest 2V Frontal and lateral views of the chest. FINDINGS: Lungs/Pleura: There is flattening of the diaphragm with increased lucency of the lungs. No evidence o f pneumothorax, pleural effusion or focal consolidation. Pulmonary vascularity: Unremarkable. Heart/mediastinum: Cardiomediastinal silhouette is unremarkable. Musculoskeletal: No acute osseous pathology. IMPRESSION: 1. No acute cardiopulmonary disease process. 2. COPD changes. [facility], , 01/23/2024 2:00 PM
--- NOTE | 2024-01-23 15:35 | CT ---
EXAMINATION TYPE: CT chest angio for PE CT DLP: 888 mGycm, Automated exposure control for dose reduction was used. DATE OF EXAM: 01/23/2024 3:26 PM COMPARISON: Chest radiograph 01/23/2024, CTA chest 02/27/2022 CLINICAL INDICATION:Male, 78 years old with history of Elevated D-dimer, chest pain; CHEST PAIN/ HX p e TECHNIQUE/CONTRAST: CTA scan of the thorax is performed with IV Contrast, patient injected with 100ML mL of Isovue 370, p ulmonary embolism protocol. MIP images are created and reviewed. FINDINGS: Pulmonary Artery: There is no evidence for a central filling defect within the pulmonary vasculature to suggest acute pulmonary embolism. Limited evaluation of the segmental and subsegmental branches se condary to bolus timing. The pulmonary artery is of normal size. Lungs/Pleura: No evidence of pleural effusion and pneumothorax. Minimal lingular reticular consolidat lisa opacity. Bilateral lower lobe linear atelectasis. Some subtle patchy groundglass opacities within the left upper lobe. Airway: Large airways are patent. Heart: The heart is moderately enlarged for size. No pericardial effusion. Vasculature: No evidence of aortic aneurysm. Mediastinum: No evidence of adenopathy. Musculoskeletal: No acute osseous abnormalities. Moderate multilevel degenerative disc disease. DISH of the thoracic spine. Soft Tissues: Flame-shaped bilateral gynecomastia. Lower neck: No significant findings. Upper Abdomen: Diffuse low-attenuation to the liver parenchyma. Caudate lobe 2.3 cm hypodense cyst. S uggested bilateral renal sinus cysts. IMPRESSION: 1. No evidence of central pulmonary embolism. Limited evaluation of the segmental and subsegmental br anches. 2. Minimal lingular patchy consolidation with some subtle groundglass opacities within the bilateral lower lobes and left upper lobe which may represent developing pneumonia versus pulmonary edema. 3. Cardiomegaly. [facility], , 01/23/2024 3:32 PM
[2024-01-23] MEDS ORDERED: NALOXONE 0.4 MG/ML 1 ML VIAL IV PRN (16:22)
[2024-01-23] MEDS: KETOROLAC 15 MG/ML 1 ML VIAL IVP STA (17:49)
[2024-01-23] MEDS: AZITHROMYCIN 500 MG in SODIUM CHLORIDE 0.9% 250 ML IVPB STA (20:08)
[2024-01-23] MEDS: ACETAMINOPHEN TAB 325 MG TAB PO PRN (20:16)
[2024-01-23] MEDS: ATORVASTATIN 10 MG TAB PO SCH (21:38)
[2024-01-24] MEDS: ALBUTEROL NEBULIZED 2.5 MG/3 ML INHALATION PRN (05:31)
[2024-01-24] MEDS: ENOXAPARIN 40 MG/0.4 ML SYRINGE SQ SCH (08:38)
[2024-01-24] MEDS: ASPIRIN 81 MG PO SCH (08:38)
[2024-01-24] MEDS: lisinopriL 20 MG TAB PO SCH (08:38)
[2024-01-24] MEDS: amLODIPine 10 MG TAB PO SCH (08:38)
[2024-01-24] MEDS: MULTIVITAMINS, THERA 1 EACH TAB PO SCH (08:38)
[2024-01-24] MEDS: hydroCHLOROthiazide 25 MG TAB PO SCH (08:38)
[2024-01-24] MEDS: METOPROLOL TARTRATE 50 MG TAB PO SCH (08:38)
[2024-01-24] MEDS: allopurinoL 300 MG TAB PO SCH (08:38)
[2024-01-24] MEDS: SYMBICORT 80-4.5 MCG INHALER INHALATION SCH (08:56)
[2024-01-24] MEDS: IPRATROPIUM 0.5 MG/2.5 ML NEBU INHALATION SCH (08:56)
[2024-01-24] MEDS ORDERED: NON FORMULARY DRUG (Vitamin B Complex [Vitamin B Complex] 1 EACH Capsule) PO SCH (09:00)
[2024-01-24 09:42] LABS: Basophils # (A) 0.03 X 10*3/uL (0.00-0.10); Basophils % (A) 0.3 %; Eosinophils # (A) 0.11 X 10*3/uL (0.04-0.35); HGB 13.5 g/dL (13.0-17.0); Lymphocytes # (A) 1.71 X 10*3/uL (0.90-5.00); Lymphocytes % (A) 16.2 %; MCH 29.3 pg (27.0-32.0); MCHC 32.1 g/dL (32.0-37.0); MCV 91.3 FL (80.0-97.0); Mean Platelet Volume 9.9 FL (9.5-12.2); Monocytes # (A) 0.72 X 10*3/uL (0.20-1.00); Monocytes % (A) 6.8 %; NRBC Per 100 WBC 0 X 10*3/uL (0.00-0.01); Neutrophils # (A) 7.95 X 10*3/uL (1.80-7.70); Neutrophils % (A) 75.2 %; Platelet Count 256 X 10*3/uL (140-440); RDW 14.2 % (11.5-14.5); WBC 10.57 X 10*3/uL (4.50-10.00)
[2024-01-24 09:51] LABS: ALT 32 U/L (10-49); AST 28 U/L (14-35); Albumin/Globulin Ratio 1.74 Ratio (1.60-3.17); Alkaline Phosphatase 107 U/L (41-126); BUN/Creat Ratio 15.56 Ratio (12.00-20.00); Calcium 9.1 mg/dL (8.7-10.3); Chloride 102 mmol/L (96-109); Globulin 2.3 g/dL (1.6-3.3); Glucose 109 mg/dL (70-110); Potassium 4.5 mmol/L (3.5-5.5); Sodium 143 mmol/L (135-145); Total Bilirubin 0.6 mg/dL (0.3-1.2); Total Protein 6.3 g/dL (6.2-8.2)
--- NOTE | 2024-01-24 13:22 | P.HPIM ---
History of Present Illness H&P Date: 01/24/24 Gutierrez Dean, is a 78-year-old male who presented to [facility] emergency room with a chief complaint of shortness of breath and midsternal chest pain He was evaluated in the emergency room vital examination on presentation revealed a temperature of 97.8 pulse 70 respiration 20 blood pressure 137/71 pulse ox 97% on room air Laboratory data revealed a white blood count of 12.1 hemoglobin 13.4 platelet count 261 D-dimer 1.01 troponin level 0.012 Testing in the emergency room revealed CT angiogram of the chest revealed no evidence of central pulmonary embolism, however there was evidence of groundglass opacities within bilateral lower lobes and left upper lobe, that may represent pneumonia, patient was started on IV antibiotics. Patient was admitted to medical floor for further evaluation and treatment Past Medical History Past Medical History: COPD, CVA/TIA, Hypertension, Pulmonary Embolus (PE), Sleep Apnea/CPAP/BIPAP Additional Past Medical History / Comment(s): CVA 2004, has double vision. Neuropathy BLE. Hx kidney stones. Uses CPAP. PE 01/2020. History of Any Multi-Drug Resistant Organisms: None Reported Past Surgical History: Back Surgery, Joint Replacement Additional Past Surgical History / Comment(s): Total Rt hip. Colonoscopy. Cataracts bilat. PAIN CLINIC PROCEDURES Past Anesthesia/Blood Transfusion Reactions: No Reported Reaction, Motion Sickness Additional Past Anesthesia/Blood Transfusion Reaction / Comment(s): no hx blood transfusion Past Psychological History: No Psychological Hx Reported Smoking Status: Never smoker Past Alcohol Use History: Daily Additional Past Alcohol Use History / Comment(s): 1 can beer nightly Past Drug Use History: None Reported - Past Family History Father Family Medical History: Respiratory Disorder Additional Family Medical History / Comment(s): w/ mesothelioma Medications and Allergies Home Medications Medication Instructions Recorded Confirmed Type Aspirin EC [Ecotrin Low Dose] 81 mg PO DAILY 01/20/20 01/23/24 History Multivit-Min/FA/Lycopen/Lutein 1 tab PO DAILY 01/20/20 01/23/24 History [Centrum Silver Tablet] Simvastatin [Zocor] 20 mg PO HS 01/20/20 01/23/24 History amLODIPine [Norvasc] 10 mg PO DAILY 01/20/20 01/23/24 History hydroCHLOROthiazide [Hydrodiuril] 25 mg PO DAILY 01/20/20 01/23/24 History lisinopriL [Zestril] 20 mg PO BID 01/20/20 01/23/24 History Fluticasone/Umeclidin/Vilanter 1 puff INHALATION RT-DAILY 04/05/21 01/23/24 History [Trelegy Ellipta 100-62.5-25] Vitamin B Complex 1 cap PO DAILY 10/24/21 01/23/24 History allopurinoL 300 mg PO DAILY 10/24/21 01/23/24 History Albuterol Inhaler [Ventolin Hfa 1 - 2 puff INHALATION RT-Q6H PRN 05/20/22 01/23/24 History Inhaler] Metoprolol Tartrate [Lopressor] 50 mg PO DAILY 01/23/24 01/23/24 History Minocycline [Minocin] 50 mg PO DAILY 01/23/24 01/23/24 History Allergies Allergy/AdvReac Type Severity Reaction Status Date / Time oxycodone AdvReac Nausea & Verified 01/23/24 14:53 Vomiting Physical Exam Vitals: Vital Signs Temp Pulse Pulse Resp BP BP Pulse Ox 01/24/24 09:06 78 18 01/24/24 08:57 78 18 01/24/24 07:45 98.0 F 73 18 115/72 96 01/24/24 05:40 78 01/24/24 05:33 76 01/24/24 05:25 79 16 123/74 95 01/24/24 00:00 98.7 F 71 124/63 93 L 01/23/24 18:18 97.7 F 62 16 170/71 97 01/23/24 17:44 98.1 F 66 18 140/65 96 01/23/24 13:10 62 18 122/59 96 01/23/24 12:30 97.8 F 63 18 140/76 94 L 01/23/24 11:59 97.8 F 70 20 137/71 97 Intake and Output 01/23/24 01/24/24 01/24/24 22:59 06:59 14:59 Other: # Voids 4 Weight 138.346 kg In general patient is alert and oriented x 3 in no distress HEENT head normocephalic and atraumatic Neck is supple no JVD no goiter no lymphadenopathy no carotid bruit Chest examination reveals a crackles in both lung bases no wheezing Cardiac exam reveals regular heart sounds S1 and S2 no gallops no murmurs Abdomen is soft nontender no organomegaly with normal bowel sounds Extremity exam reveals no edema no cyanosis or clubbing Neurological examination reveals no gross focal deficits Results CBC & Chem 7: 01/24/24 05:24 01/24/24 05:24 Labs: Abnormal Lab Results - Last 24 Hours (Table) 01/23/24 01/23/24 01/23/24 Range/Units 12:26 12:26 12:26 WBC 12.1 H (3.8-10.6) k/uL Immature Gran # (0.00-0.04) X 10*3/uL Neutrophils # 9.4 H (1.3-7.7) k/uL D-Dimer 1.01 H (<0.60) mg/L FEU Carbon Dioxide 32 H (22-30) mmol/L Glucose 109 H (74-99) mg/dL 01/24/24 Range/Units 05:24 WBC 10.57 H (3.8-10.6) k/uL Immature Gran # 0.05 H (0.00-0.04) X 10*3/uL Neutrophils # 7.95 H (1.3-7.7) k/uL D-Dimer (<0.60) mg/L FEU Carbon Dioxide (22-30) mmol/L Glucose (74-99) mg/dL Thrombosis Risk Factor Assmnt - Choose All That Apply Any of the Below Risk Factors Present?: No Other Risk Factors: Yes Each Risk Factor Represents 3 Points: Age 75 years or older, History of DVT/PE Other congenital or acquired thrombophilia - If yes, enter type in comment: No Thrombosis Risk Factor Assessment Total Risk Factor Score: 6 Thrombosis Risk Factor Assessment Level: High Risk Assessment and Plan Plan: Bilateral lung opacities suggestive of pneumonia Previous history of pulmonary embolism, in January 2020 Underlying history of coronary artery disease Underlying history of hypertension Underlying history of hyperlipidemia Underlying history of CVA Underlying history of gastroesophageal reflux disease At this time patient was seen and examined Home medications reviewed and reordered He was started on IV ceftriaxone and IV Zithromax in the emergency room, will c ontinue with same antibiotic at this time Will check sputum for culture and Gram stain Consult pulmonary For DVT prophylaxis subcu Lovenox Will continue to follow closely
[2024-01-24] MEDS ORDERED: ALBUTEROL NEBULIZED 2.5 MG/3 ML INHALATION PRN (14:30)
--- NOTE | 2024-01-24 15:33 | P.CNPUL ---
History of Present Illness Consult date: 01/24/24 Requesting physician: Randy Frye Reason for consult: chest pain, COPD Chief complaint: Chest pain on inhalation, shortness of breath History of present illness: This is a very pleasant 69-year-old male patient with a known history of chronic obstructive pulmonary disease, obstructive sleep apnea on CPAP, hypertension, gout, hyperlipidemia on anticoagulation. Worsening with deep inhalation was seen by his PCP who recommended he come to the emergency room yesterday. EKG revealed sinus rhythm without acute ST or T wave abnormalities. X-ray shows evidence of COPD but no acute cardiopulmonary process. CT angiogram ruled out pulmonary embolism. There is minimal lingular patchy consolidation with some subtle groundglass opacities in the bilateral lower lobes and left upper lobe. White count 10.5. Hemoglobin 13.5. Platelets 256. Sodium 143. Potassium 4.5. Bicarb 29. BUN 14. Creatinine 0.9. Glucose 109. Troponins negative x 3. Seen today in consultation on the regular medical floor. He is sitting up at the bedside. Awake and alert in no acute distress. Denies any worsening shortness of breath, cough or congestion. He stated he did feel some shortness of breath last night while laying flat in bed. Still having some chest discomfort but subsiding. He is maintaining O2 saturation in the 90s on room air. He is afebrile. Hemodynamically stable. Review of Systems REVIEW OF SYSTEMS: CONSTITUTIONAL: Denies any recent significant weight loss or weight gain. EYES: Denies change in vision. EARS, NOSE, MOUTH, THROAT: Denies headaches, denies sore throat. CARDIOVASCULAR: Positive for chest pain, no palpitations or syncopal episodes. RESPIRATORY: Positive for shortness of breath, no cough, congestion or hemoptysis. GASTROINTESTINAL: Denies change in appetite, denies abdominal pain GENITOURINARY: Denies hematuria, denies infections. MUSKULOSKELETAL: Denies pain, denies swelling. INTEGUMENTARY: Denies rash, denies eczema. NEUROLOGICAL: Denies recent memory loss, no recent seizure activity. PSYCHIATRIC: Denies anxiety, denies depression. HEMATOLOGIC/LYMPHATIC: Denies anemia, denies enlarged lymph nodes. Past Medical History Past Medical History: COPD, CVA/TIA, Hypertension, Pulmonary Embolus (PE), Sleep Apnea/CPAP/BIPAP Additional Past Medical History / Comment(s): CVA 2004, has double vision. Neuropathy BLE. Hx kidney stones. Uses CPAP. PE 01/2020. History of Any Multi-Drug Resistant Organisms: None Reported Past Surgical History: Back Surgery, Joint Replacement Additional Past Surgical History / Comment(s): Total Rt hip. Colonoscopy. Cataracts bilat. PAIN CLINIC PROCEDURES Past Anesthesia/Blood Transfusion Reactions: No Reported Reaction, Motion Sickness Additional Past Anesthesia/Blood Transfusion Reaction / Comment(s): no hx blood transfusion Past Psychological History: No Psychological Hx Reported Smoking Status: Never smoker Past Alcohol Use History: Daily Additional Past Alcohol Use History / Comment(s): 1 can beer nightly Past Drug Use History: None Reported - Past Family History Father Family Medical History: Respiratory Disorder Additional Family Medical History / Comment(s): w/ mesothelioma Medications and Allergies Home Medications Medication Instructions Recorded Confirmed Type Aspirin EC [Ecotrin Low Dose] 81 mg PO DAILY 01/20/20 01/23/24 History Multivit-Min/FA/Lycopen/Lutein 1 tab PO DAILY 01/20/20 01/23/24 History [Centrum Silver Tablet] Simvastatin [Zocor] 20 mg PO HS 01/20/20 01/23/24 History amLODIPine [Norvasc] 10 mg PO DAILY 01/20/20 01/23/24 History hydroCHLOROthiazide [Hydrodiuril] 25 mg PO DAILY 01/20/20 01/23/24 History lisinopriL [Zestril] 20 mg PO BID 01/20/20 01/23/24 History Fluticasone/Umeclidin/Vilanter 1 puff INHALATION RT-DAILY 04/05/21 01/23/24 History [Trelegy Ellipta 100-62.5-25] Vitamin B Complex 1 cap PO DAILY 10/24/21 01/23/24 History allopurinoL 300 mg PO DAILY 10/24/21 01/23/24 History Albuterol Inhaler [Ventolin Hfa 1 - 2 puff INHALATION RT-Q6H PRN 05/20/22 1 03/24/23 History Inhaler] Metoprolol Tartrate [Lopressor] 50 mg PO DAILY 01/23/24 01/23/24 History Minocycline [Minocin] 50 mg PO DAILY 01/23/24 01/23/24 History Allergies Allergy/AdvReac Type Severity Reaction Status Date / Time oxycodone AdvReac Nausea & Verified 01/23/24 14:53 Vomiting Physical Exam Vitals: Vital Signs Temp Pulse Pulse Resp BP BP Pulse Ox 01/24/24 13:13 98.4 F 71 18 102/55 93 L 01/24/24 12:42 70 01/24/24 12:22 72 01/24/24 09:06 78 18 01/24/24 08:57 78 18 01/24/24 07:45 98.0 F 73 18 115/72 96 01/24/24 05:40 78 01/24/24 05:33 76 01/24/24 05:25 79 16 123/74 95 01/24/24 00:00 98.7 F 71 124/63 93 L 01/23/24 18:18 97.7 F 62 16 170/71 97 01/23/24 17:44 98.1 F 66 18 140/65 96 Intake and Output 01/24/24 01/24/24 01/24/24 06:59 14:59 22:59 Other: # Voids 4 GENERAL EXAM: Alert, active, pleasant 78-year-old gentleman, on room air, comfortable in no apparent distress. HEAD: Normocephalic. EYES: Normal reaction of pupils, equal size. NOSE: Clear with pink turbinates. THROAT: No erythema or exudates. NECK: No masses, no JVD. CHEST: No chest wall deformity. LUNGS: Equal air entry with no crackles, wheeze, rhonchi or dullness. CVS: S1 and S2 normal with no audible murmur, regular rhythm. ABDOMEN: No hepatosplenomegaly, normal bowel sounds, no guarding or rigidity. SPINE: No scoliosis or deformity SKIN: No rashes CENTRAL NERVOUS SYSTEM: No focal deficits, tone is normal in all 4 extremities. EXTREMITIES: Changes of chronic venous stasis. There is no peripheral edema. No clubbing, no cyanosis. Peripheral pulses are intact. Results - Laboratory Findings CBC and BMP: 01/24/24 05:24 01/24/24 05:24 PT/INR, D-dimer PT 10.2 sec (10.0-12.5) 01/23/24 12:26 INR 0.9 (<1.2) 01/23/24 12:26 D-Dimer 1.01 mg/L FEU (<0.60) H 01/23/24 12:26 Abnormal lab findings: Abnormal Labs 01/23/24 01/23/24 01/23/24 12:26 12:26 12:26 WBC 12.1 H Immature Gran # Neutrophils # 9.4 H D-Dimer 1.01 H Carbon Dioxide 32 H Glucose 109 H 01/24/24 05:24 WBC 10.57 H Immature Gran # 0.05 H Neutrophils # 7.95 H D-Dimer Carbon Dioxide Glucose - Diagnostic Findings Chest x-ray: image reviewed CT scan - chest: image reviewed Assessment and Plan Assessment: Chest pain mainly on inspiration. Acute coronary syndrome ruled out. Pulmonary embolism ruled out Dyspnea possibly related to early pneumonia versus fluid volume overload versus mild COPD exacerbation Chronic obstructive pulmonary disease, maintained on Trelegy History of CVA Hypertension Obstructive sleep apnea maintained on CPAP Neuropathy of the bilateral lower extremities Daily alcohol use Obesity Gout Plan: The patient was seen and evaluated Imaging, labs and medications reviewed Currently stable and on room air Check a procalcitonin Check a proBNP Continue Symbicort and DuoNeb inhalations Add Solu-Medrol Consider diuretics We will continue to follow and make further recommendations based on his clinical status I have personally seen and examined the patient, performed the documentation and the assessment and plan as written. Number of minutes spent on the visit: 20 Dictation was produced using [employer] dictation software. Please excuse any grammatical, word or spelling errors.
[2024-01-24] MEDS: AZITHROMYCIN 500 MG TAB PO SCH (15:55)
[2024-01-24] MEDS: IPRATROPIUM-ALBUTEROL 3 ML NEB INHALATION SCH (16:27)
[2024-01-24] MEDS: methylPREDNISolone SOD SUCCI 125 MG/2 ML VIAL IV SCH (18:09)
--- NOTE | 2024-01-25 09:45 | P.PN ---
Subjective Progress Note Date: 01/25/24 Gutierrez Dean, is a 78-year-old male who presented to [facility] emergency room with a chief complaint of shortness of breath and midsternal chest pain He was evaluated in the emergency room vital examination on presentation revealed a temperature of 97.8 pulse 70 respiration 20 blood pressure 137/71 pulse ox 97% on room air Laboratory data revealed a white blood count of 12.1 hemoglobin 13.4 platelet count 261 D-dimer 1.01 troponin level 0.012 Testing in the emergency room revealed CT angiogram of the chest revealed no evidence of central pulmonary embolism, however there was evidence of groundglass opacities within bilateral lower lobes and left upper lobe, that may represent pneumonia, patient was started on IV antibiotics. Patient was admitted to medical floor for further evaluation and treatment On 01/25/2024 patient is alert and oriented x 3. Patient reports significant improvement with cough and chest discomfort. Patient remains on IV Solu-Medrol IV Rocephin and azithromycin. Pulmonary services are following. Patient denies chest pain. Patient denies nausea vomiting or diarrhea. Patient denies any urinary burning or frequency Objective - Vital Signs Vital signs: Vital Signs Temp 98.4 F 01/25/24 07:15 Pulse 80 01/25/24 09:27 Resp 16 01/25/24 07:15 BP 148/73 01/25/24 07:15 Pulse Ox 94 L 01/25/24 07:15 FiO2 Intake & Output 01/24/24 01/25/24 01/25/24 18:59 06:59 18:59 Other: Voiding Method Toilet # Voids 3 - Exam In general patient is alert and oriented x 3 in no distress HEENT head normocephalic and atraumatic Neck is supple no JVD no goiter no lymphadenopathy no carotid bruit Chest examination reveals a crackles in both lung bases no wheezing Cardiac exam reveals regular heart sounds S1 and S2 no gallops no murmurs Abdomen is soft nontender no organomegaly with normal bowel sounds Extremity exam reveals no edema no cyanosis or clubbing Neurological examination reveals no gross focal deficits - Labs CBC & Chem 7: 01/24/24 05:24 01/24/24 05:24 Labs: Microbiology - Last 24 Hours (Table) 01/23/24 17:27 Blood Culture - Preliminary Blood Assessment and Plan Plan: Bilateral lung opacities suggestive of pneumonia Previous history of pulmonary embolism, in January 2020 Underlying history of coronary artery disease Underlying history of hypertension Underlying history of hyperlipidemia Underlying history of CVA Underlying history of gastroesophageal reflux disease At this time patient was seen and examined Home medications reviewed and reordered He was started on IV ceftriaxone and IV Zithromax in the emergency room, will continue with same antibiotic at this time Will check sputum for culture and Gram stain Consult pulmonary For DVT prophylaxis subcu Lovenox Will continue to follow closely
[2024-01-25 09:49] LABS: ALT 28 U/L (10-49); AST 20 U/L (14-35); Albumin/Globulin Ratio 1.74 Ratio (1.60-3.17); Alkaline Phosphatase 101 U/L (41-126); Blood Urea Nitrogen 21.4 mg/dL (9.0-27.0); Calcium 9.2 mg/dL (8.7-10.3); Carbon Dioxide 25.8 mmol/L (21.6-31.8); Chloride 101 mmol/L (96-109); Globulin 2.3 g/dL (1.6-3.3); Glucose 181 mg/dL (70-110); Potassium 4.5 mmol/L (3.5-5.5); Sodium 142 mmol/L (135-145); Total Bilirubin 0.3 mg/dL (0.3-1.2); Total Protein 6.3 g/dL (6.2-8.2)
[2024-01-25 09:57] LABS: Basophils # (A) 0.02 X 10*3/uL (0.00-0.10); Basophils % (A) 0.2 %; Eosinophils # (A) 0 X 10*3/uL (0.04-0.35); Eosinophils % (A) 0 %; HCT 40.2 % (39.6-50.0); HGB 13.1 g/dL (13.0-17.0); Lymphocytes # (A) 0.58 X 10*3/uL (0.90-5.00); Lymphocytes % (A) 4.9 %; MCH 29.5 pg (27.0-32.0); MCHC 32.6 g/dL (32.0-37.0); MCV 90.5 FL (80.0-97.0); Mean Platelet Volume 9.9 FL (9.5-12.2); Monocytes % (A) 0.8 %; NRBC Per 100 WBC 0 X 10*3/uL (0.00-0.01); Neutrophils % (A) 93.5 %; Platelet Count 259 X 10*3/uL (140-440); RBC 4.44 X 10*6/uL (4.40-5.60); RDW 14.2 % (11.5-14.5); WBC 11.77 X 10*3/uL (4.50-10.00)
--- NOTE | 2024-01-25 11:37 | P.PN ---
Subjective Progress Note Date: 01/25/24 This is a very pleasant 69-year-old male patient with a known history of chronic obstructive pulmonary disease, obstructive sleep apnea on CPAP, hypertension, gout, hyperlipidemia on anticoagulation. Worsening with deep inhalation was seen by his PCP who recommended he come to the emergency room yesterday. EKG revealed sinus rhythm without acute ST or T wave abnormalities. X-ray shows evidence of COPD but no acute cardiopulmonary process. CT angiogram ruled out pulmonary embolism. There is minimal lingular patchy consolidation with some subtle groundglass opacities in the bilateral lower lobes and left upper lobe. White count 10.5. Hemoglobin 13.5. Platelets 256. Sodium 143. Potassium 4.5. Bicarb 29. BUN 14. Creatinine 0.9. Glucose 109. Troponins negative x 3. Seen today in consultation on the regular medical floor. He is sitting up at the bedside. Awake and alert in no acute distress. Denies any worsening shortness of breath, cough or congestion. He stated he did feel some shortness of breath last night while laying flat in bed. Still having some chest discomfort but subsiding. He is maintaining O2 saturation in the 90s on room air. He is afebrile. Hemodynamically stable. The patient is seen today January 25, 2024 in follow-up on the regular medical floor. He is currently sitting up in a chair at the bedside. Awake and alert in no acute distress. He is maintaining O2 saturations in the 90s on room air. He is afebrile. Hemodynamically stable. He did utilize his home CPAP last night. Denies any further chest discomfort. Blood culture revealing no growth to date. White count 11.7. Hemoglobin 13.1. Platelets 259. Sodium 142. Potassium 4.5. Bicarb 26. BUN 21. Creatinine 1.0. Glucose 181. Procalcitonin 0.10. He is currently on ceftriaxone and azithromycin. Continued on bronchodilators and steroids. Lovenox for DVT prophylaxis. Objective - Vital Signs Vital signs: Vital Signs Temp 98.4 F 01/25/24 07:15 Pulse 80 01/25/24 09:27 Resp 16 01/25/24 07:15 BP 148/73 01/25/24 07:15 Pulse Ox 94 L 01/25/24 07:15 FiO2 Intake & Output 11/16/24 11/17/24 11/17/24 18:59 06:59 18:59 Other: Voiding Method Toilet # Voids 3 - Exam GENERAL EXAM: Alert, active, 78 year-old male, up in a chair, on room air, comfortable in no apparent distress. HEAD: Normocephalic. EYES: Normal reaction of pupils, equal size. NOSE: Clear with pink turbinates. THROAT: No erythema or exudates. NECK: No masses, no JVD. CHEST: No chest wall deformity. LUNGS: Equal air entry with no crackles, wheeze, rhonchi or dullness. CVS: S1 and S2 normal with no audible murmur, regular rhythm. ABDOMEN: No hepatosplenomegaly, normal bowel sounds, no guarding or rigidity. SPINE: No scoliosis or deformity SKIN: No rashes CENTRAL NERVOUS SYSTEM: No focal deficits, tone is normal in all 4 extremities. EXTREMITIES: There is no peripheral edema. No clubbing, no cyanosis. Peripheral pulses are intact. - Labs CBC & Chem 7: 01/25/24 04:13 01/25/24 04:13 Labs: Abnormal Lab Results - Last 24 Hours (Table) 01/25/24 01/25/24 Range/Units 04:13 04:13 WBC 11.77 H (4.50-10.00) X 10*3/uL Immature Gran # 0.07 H (0.00-0.04) X 10*3/uL Neutrophils # 11.00 H (1.80-7.70) X 10*3/uL Lymphocytes # 0.58 L (0.90-5.00) X 10*3/uL Monocytes # 0.10 L (0.20-1.00) X 10*3/uL Eosinophils # 0 L (0.04-0.35) X 10*3/uL Anion Gap 15.20 H (4.00-12.00) mmol/L BUN/Creatinine Ratio 21.40 H (12.00-20.00) Ratio Glucose 181 H (70-110) mg/dL Microbiology - Last 24 Hours (Table) 01/23/24 17:27 Blood Culture - Preliminary Blood Assessment and Plan Assessment: Chest pain mainly on inspiration. Acute coronary syndrome ruled out. Pulmonary embolism ruled out. Suspect pleurisy Dyspnea possibly related to early pneumonia versus fluid volume overload versus mild COPD exacerbation. BNP within normal limits, procalcitonin negative Chronic obstructive pulmonary disease, maintained on Trelegy History of CVA Hypertension Obstructive sleep apnea maintained on CPAP Neuropathy of the bilateral lower extremities Daily alcohol use Obesity Gout Plan: The patient was seen and evaluated Labs and medications reviewed Currently stable and on room air Continue Symbicort and DuoNeb inhalations Continue steroids Probable discharge in a.m. I have personally seen and examined the patient, performed the documentation and the assessment and plan as written. Number of minutes spent on the visit: 10 Dictation was produced using [employer] dictation software. Please excuse any grammatical, word or spelling errors.
[2024-01-26 08:42] VITALS: BP 147/53; RESP 16; TEMP 97.8
[2024-01-26 08:43] LABS: Basophils # (A) 0.02 X 10*3/uL (0.00-0.10); Basophils % (A) 0.1 %; Eosinophils # (A) 0 X 10*3/uL (0.04-0.35); Eosinophils % (A) 0 %; HCT 39.6 % (39.6-50.0); HGB 12.7 g/dL (13.0-17.0); Lymphocytes # (A) 0.82 X 10*3/uL (0.90-5.00); Lymphocytes % (A) 4.5 %; MCH 29.7 pg (27.0-32.0); MCHC 32.1 g/dL (32.0-37.0); MCV 92.5 FL (80.0-97.0); Monocytes # (A) 0.44 X 10*3/uL (0.20-1.00); Monocytes % (A) 2.4 %; NRBC Per 100 WBC 0 X 10*3/uL (0.00-0.01); Neutrophils % (A) 92.2 %; Platelet Count 273 X 10*3/uL (140-440); RBC 4.28 X 10*6/uL (4.40-5.60); RDW 14.5 % (11.5-14.5); WBC 18.12 X 10*3/uL (4.50-10.00)
[2024-01-26 09:05] LABS: BUN/Creat Ratio 29.92 Ratio (12.00-20.00); Blood Urea Nitrogen 35.9 mg/dL (9.0-27.0); Glucose 237 mg/dL (70-110)
[2024-01-26 09:06] LABS: ALT 27 U/L (10-49); AST 17 U/L (14-35); Albumin 3.8 g/dL (3.8-4.9); Albumin/Globulin Ratio 1.58 Ratio (1.60-3.17); Alkaline Phosphatase 104 U/L (41-126); Carbon Dioxide 25.3 mmol/L (21.6-31.8); Chloride 101 mmol/L (96-109); Globulin 2.4 g/dL (1.6-3.3); Sodium 140 mmol/L (135-145); Total Bilirubin <0.2 mg/dL (0.3-1.2); Total Protein 6.2 g/dL (6.2-8.2)
[2024-01-26 09:50] VITALS: PULSE 75
--- NOTE | 2024-01-26 13:29 | P.PN ---
Subjective Progress Note Date: 01/26/24 This is a very pleasant 69-year-old male patient with a known history of chronic obstructive pulmonary disease, obstructive sleep apnea on CPAP, hypertension, gout, hyperlipidemia on anticoagulation. Worsening with deep inhalation was seen by his PCP who recommended he come to the emergency room yesterday. EKG revealed sinus rhythm without acute ST or T wave abnormalities. X-ray shows evidence of COPD but no acute cardiopulmonary process. CT angiogram ruled out pulmonary embolism. There is minimal lingular patchy consolidation with some subtle groundglass opacities in the bilateral lower lobes and left upper lobe. White count 10.5. Hemoglobin 13.5. Platelets 256. Sodium 143. Potassium 4.5. Bicarb 29. BUN 14. Creatinine 0.9. Glucose 109. Troponins negative x 3. Seen today in consultation on the regular medical floor. He is sitting up at the bedside. Awake and alert in no acute distress. Denies any worsening shortness of breath, cough or congestion. He stated he did feel some shortness of breath last night while laying flat in bed. Still having some chest discomfort but subsiding. He is maintaining O2 saturation in the 90s on room air. He is afebrile. Hemodynamically stable. The patient is seen today January 25, 2024 in follow-up on the regular medical floor. He is currently sitting up in a chair at the bedside. Awake and alert in no acute distress. He is maintaining O2 saturations in the 90s on room air. He is afebrile. Hemodynamically stable. He did utilize his home CPAP last night. Denies any further chest discomfort. Blood culture revealing no growth to date. White count 11.7. Hemoglobin 13.1. Platelets 259. Sodium 142. Potassium 4.5. Bicarb 26. BUN 21. Creatinine 1.0. Glucose 181. Procalcitonin 0.10. He is currently on ceftriaxone and azithromycin. Continued on bronchodilators and steroids. Lovenox for DVT prophylaxis. The patient is seen today January 26, 2024 in follow-up on the regular medical floor. And alert in no acute distress. Sitting up at the bedside. Denies any worsening shortness of breath, cough or congestion. Denies any chest pain. He is maintaining good O2 saturations in the 90s on room air. His procalcitonin was 0.10. He is currently on ceftriaxone. He remains on bronchodilators and steroids. White count 18.1. Hemoglobin 12.7. Platelets 273. Sodium 140. Potassium 4.0. Bicarb 25. BUN 36. Creatinine 1.2. Glucose 237. Objective - Vital Signs Vital signs: Vital Signs Temp 97.8 F 01/26/24 07:51 Pulse 75 01/26/24 09:48 Resp 16 01/26/24 07:51 BP 147/53 01/26/24 07:51 Pulse Ox 98 01/26/24 09:40 FiO2 Intake & Output 01/25/24 01/26/24 01/26/24 18:59 06:59 18:59 Other: Voiding Method Toilet Toilet Urinal # Voids 5 - Exam GENERAL EXAM: Alert, pleasant 78 year-old male, on room air, in no apparent distress. HEAD: Normocephalic. EYES: Normal reaction of pupils, equal size. NOSE: Clear with pink turbinates. THROAT: No erythema or exudates. NECK: No masses, no JVD. CHEST: No chest wall deformity. LUNGS: Equal air entry with no crackles, wheeze, rhonchi or dullness. CVS: S1 and S2 normal with no audible murmur, regular rhythm. ABDOMEN: No hepatosplenomegaly, normal bowel sounds, no guarding or rigidity. SPINE: No scoliosis or deformity SKIN: No rashes CENTRAL NERVOUS SYSTEM: No focal deficits, tone is normal in all 4 extremities. EXTREMITIES: There is no peripheral edema. No clubbing, no cyanosis. Peripheral pulses are intact. - Labs CBC & Chem 7: 01/26/24 03:46 01/26/24 03:46 Labs: Abnormal Lab Results - Last 24 Hours (Table) 01/26/24 01/26/24 Range/Units 03:46 03:46 WBC 18.12 H (4.50-10.00) X 10*3/uL RBC 4.28 L (4.40-5.60) X 10*6/uL Hgb 12.7 L (13.0-17.0) g/dL Immature Gran # 0.14 H (0.00-0.04) X 10*3/uL Neutrophils # 16.70 H (1.80-7.70) X 10*3/uL Lymphocytes # 0.82 L (0.90-5.00) X 10*3/uL Eosinophils # 0 L (0.04-0.35) X 10*3/uL Anion Gap 13.70 H (4.00-12.00) mmol/L BUN 35.9 H (9.0-27.0) mg/dL BUN/Creatinine Ratio 29.92 H (12.00-20.00) Ratio Glucose 237 H (70-110) mg/dL Total Bilirubin <0.2 L (0.3-1.2) mg/dL Albumin/Globulin Ratio 1.58 L (1.60-3.17) Ratio Microbiology - Last 24 Hours (Table) 01/23/24 17:27 Blood Culture - Preliminary Blood 01/24/24 17:00 Gram Stain - Preliminary Sputum Assessment and Plan Assessment: Chest pain mainly on inspiration. Acute coronary syndrome ruled out. Pulmonary embolism ruled out. Suspect pleurisy Dyspnea possibly related to early pneumonia versus fluid volume overload versus mild COPD exacerbation. BNP within normal limits, procalcitonin negative Chronic obstructive pulmonary disease, maintained on Trelegy History of CVA Hypertension Obstructive sleep apnea maintained on CPAP Neuropathy of the bilateral lower extremities Daily alcohol use Obesity Gout Plan: The patient was seen and evaluated Labs and medications reviewed Currently stable and on room air Continue bronchodilators, steroids Procalcitonin negative. Antibiotics discontinued Cleared for discharge from the pulmonary standpoint I have personally seen and examined the patient, performed the documentation and the assessment and plan as written. Number of minutes spent on the visit: 10 Dictation was produced using [employer] dictation software. Please excuse any grammatical, word or spelling errors.
[2024-01-27] MEDS ORDERED: methylPREDNISolone 4 MG TAB TAPER PO SCH (09:00)
== END 2024-01-26 13:40 | disposition home or self-care (01) | DRG 193 ==
LOC: EC 11:53 → 3SCARD 16:22 → 4SSUR 17:02
PROVIDERS: ADMIT Internal Medicine; ATTEND Internal Medicine
DX: R09.1 Pleurisy (principal); J18.9 Pneumonia, unspecified organism; J44.0 Chronic obstructive pulmonary disease with (acute) lower respiratory infection; Z68.41 Body mass index [BMI] 40.0-44.9, adult; G47.33 Obstructive sleep apnea (adult) (pediatric); G62.9 Polyneuropathy, unspecified; I10 Essential (primary) hypertension; I25.10 Atherosclerotic heart disease of native coronary artery without angina pectoris; E66.9 Obesity, unspecified; E78.5 Hyperlipidemia, unspecified; M10.9 Gout, unspecified; Z79.82 Long term (current) use of aspirin; Z79.899 Other long term (current) drug therapy; Z86.711 Personal history of pulmonary embolism; Z86.73 Personal history of transient ischemic attack (TIA), and cerebral infarction without residual deficits; Z87.442 Personal history of urinary calculi; Z88.5 Allergy status to narcotic agent; Z98.42 Cataract extraction status, left eye; Z98.41 Cataract extraction status, right eye
CPT/HCPCS: 36415; 71046; 71275; 80053; 83605; 83880; 84145; 84484; 85025; 85379; 85610; 85730; 87040; 87070; 87205; 93005; 94640; 94660; 94760; 96374; 99285

== ENCOUNTER → 2024-02-12 | Outpatient (CLI) | payer MEDICARE ==
[2024-02-12 07:49] VITALS: BP 116/71; PULSE 67; RESP 16; TEMP 97.3
--- NOTE | 2024-02-12 15:17 | P.PAINPG ---
Objective - Vital Signs Vital signs: Intake & Output 02/11/24 02/12/24 02/12/24 18:59 06:59 18:59 Weight 136.078 kg PQRS Measure Charge Sheet Comment: A 78 yr old male with a history of severe and chronic LBP x 5 yrs secondary to post L4-S1 laminectomy w decompression presents today for evaluation s/p Caudal DOMENICO #2. Pt states he experienced 90 % pain relief x 3 mo s/p procedure. Pain level is provoked at 7 /10 in intensity, constant, localized in the lumbar spine, predominantly axial, achy in character w occasional shooting towards the L hip. Pain is provoked by any movement. Pain is alleviated with PT x 6 wks which ended in Sep 2023 without relief, physician guided home stretches daily since Sep 2023, heat, medications, use of a cane, repositioning and rest. Interventional pain procedures completed include BL RFA L1-L3, DOMENICO R paramedian L2-L3 x1, Lumbar TPIs x2, Caudal DOMENICO Patient is currently on Tyl, Lyrica Patient denies any side effects of the medication(s), denies excessive drowsiness or sleepiness, denies suicidal ideation and reports that the current pain medication is helping to control the pain and improve activities of daily living. Patient denies any motor or sensory deficits. Patient denies any fever or night sweats, denies any change in the bowel movements or urination. Physical Examination: -Constitutional: Cooperative. Not in acute distress . - Neurologic: Cranial nerve II to XII intact. No focal neurological deficits. - Psychatric: Alert & oriented x 3. Matching mood & appropriate affect. Judgment and insight intact. - Musculoskeletal: Cervical spine: Muscle bulk/ tone/ strength in the bilateral upper extremities normal Vertebral body tenderness to palpation over Spurling test positive Distraction test positive Facet loading test positive TTP Thoracic spine Muscle bulk / tone/ strength in the bilateral paraspinal muscles normal Vertebral body tender to palpation over Facet loading test positive TTP Lumbar spine: Motor bulk/ tone/ strength lower extremities , thigh and legs : 5/5 Deep tendon reflexes : Normal Knee Jerk. Normal Ankle Jerk . Vertebral body tenderness to palpation over L2 Grant Test positive over R L2-L3 BL taut bands w twitch response Lumbar Facet Loading Test positive BL L4-L5, L5-S1 Straight Leg Raise: positive at 30 degrees right side/ left side Gaenslen's Test positive Sacral spine : Severe tenderness over the Sacroiliac joint: right side / left side Range of motion: Flexion of the lumbar spine <60 degrees Range of motion: Extension of the lumbar spine <20 degrees Gaenslen's Test positive right side / left side Agata test: positive right side / left side Thigh Thrust Test positive right side / left side Sacral Thrust Test positive right side / left side Imaging: JORGE non contrast lumbar spine from 01/07/24 reviewed Assessment and plan: Chronic LBP secondary to post L4-S1 laminectomy w decompression Recommendation of BL MBB L4-L5, L5-S1 #1. Risks, benefits of procedure discussed and pt verbalized understanding. Protocol for discontinuation/ continuation of medications taco procedure discussed. Minimal anesthesia including Fentanyl and Versed if clinically indicated. All questions answered. I have spent less than 30 minutes on patient care today. Dr Crouch was available by phone for the evaluation of this patient. The time was used to review the medical records including relevant urine studies and Prescription history (MAPs), review of the available imaging, evaluation and examination of the patient, coordination of care with the medical staff and if applicable referring physicians, as well as creation of the medical record PQRS Narrative: Hx Alcohol Use (MH) Yes Home Medications: Ambulatory Orders Aspirin EC [Ecotrin Low Dose] 81 mg PO DAILY 01/20/20 Multivit-Min/FA/Lycopen/Lutein [Centrum Silver Tablet] 1 tab PO DAILY 01/20/20 Simvastatin [Zocor] 20 mg PO HS 01/20/20 amLODIPine [Norvasc] 10 mg PO DAILY 01/20/20 hydroCHLOROthiazide [Hydrodiuril] 25 mg PO DAILY 01/20/20 lisinopriL [Zestril] 20 mg PO BID 01/20/20 Fluticasone/Umeclidin/Vilanter [Trelegy Ellipta 100-62.5-25] 1 puff INHALATION RT-DAILY 04/05/21 Vitamin B Complex 1 cap PO DAILY 10/24/21 allopurinoL 300 mg PO DAILY 10/24/21 Albuterol Inhaler [Ventolin Hfa Inhaler] 1 - 2 puff INHALATION RT-Q6H PRN 05/20/22 Metoprolol Tartrate [Lopressor] 50 mg PO DAILY 01/23/24 Minocycline [Minocin] 50 mg PO DAILY 01/23/24 Cefdinir 300 mg PO Q12HR 7 Days #14 cap 01/26/24 methylPREDNISolone Dose Pack [Medrol Dose Pack] 24 mg PO DAILY 6 Days #24 tab 01/26/24 Controlled Substance Measures - Controlled Substance Measures Is patient prescribed a controlled substance at discharge?: No
== END ==
LOC: PNWHC3 07:29
PROVIDERS: ATTEND Specialist
DX: M47.896 Other spondylosis, lumbar region (principal); M96.1 Postlaminectomy syndrome, not elsewhere classified; Z88.5 Allergy status to narcotic agent
CPT/HCPCS: 99211

== ENCOUNTER 2024-03-30 06:53 | Day surgery (SDC) | payer MEDICARE ==
[2024-03-30 07:17] VITALS: RESP 16; TEMP 97.2
[2024-03-30] MEDS: IV FLUID CONTINUATION 1,000 ML IV ONE ×2 (07:25→08:17)
[2024-03-30] MEDS: LACTATED RINGERS 1,000 ML IV SCH (07:30)
[2024-03-30] MEDS ORDERED: ROPIVACAINE 5MG/ML 20ML VIAL ONE (07:50)
[2024-03-30] MEDS ORDERED: MIDAZOLAM 2 MG/2 ML VIAL ONE (07:50)
--- NOTE | 2024-03-30 08:23 | P.PCN ---
Description of Procedure: Preprocedure diagnosis. 1. Lumbar spondylosis with facet joint arthropathy without myelopathy. 2. Lumbar degenerative disc disease. Postprocedure diagnosis. As above. Procedure done. Bilateral diagnostic block with local anesthetics at L3, L4, L5 medial branch to target the facet joint L4- 5 and L5-S1 with fluoroscopic guidan ce (fluoroscopy images are available in the radiology department) . Anesthesia. Moderate sedation with intravenous Versed 2 mg and local infiltration with local anesthetics. In OR, continuous pulse ox, EKG, blood pressure and verbal communication was maintained. Time. Blood loss. Minimal. Indication. The patient has low back pain secondary to lumbar facet joint arthropathy. Discussed the procedure and alternative and complications which includes infection, bleeding, nerve damage, paralysis ,aggravation of pain. Patient understands and all questions were answered. Patient iunderstands that if any pain relief occurs it will last for a few hours to a few days maximum. Procedure description. After getting consent patient was taken in the OR in prone position. Back prepped with chlorhexidine and draped in sterile fashion. After injecting 5 mL of plain 1% lidocaine subcutaneously, a 22-gauge spinal needle was introduced under tunnel vision of the fluoroscope at the junction of the superior articular process with RIGHT ala of the sacrum. With slight oblique fluoroscope, after injecting 5 mL of plain 1% lidocaine subcutaneously, a 22-gauge spinal needle was introduced under tunnel vision of the fluoroscope at the junction of the superior articular process with RIGHT L5 transverse process, junction of the superior articular process with the RIGHT L4 transverse process. Negative CSF, negative blood, negative paresthesia. After needle position confirmation by AP and crosstable lateral view, after negative aspiration, half milliliters of solution were injected at each point. Total 1- 1/2 mL of solution was injected on the right side which consists of 0.5% ropivacaine. In exactly same way, LEFT sided injections were done at the following 3 points. Junction of the superior articular process with left ala of the sacrum, junction of the superior articular process with the left L5 transverse process, junction of the superior articular process with left L4 transverse process using 0.5 mL of solution at each point. Total 1-1/2 mL of solution was injected on the left side which consists of 0.5% ropivacaine . Spinal needles were taken out and bandages were applied. Disposition. Patient tolerated the procedure well. No complication. Discharged home in stable condition
--- NOTE | 2024-03-30 08:24 | FL ---
EXAMINATION TYPE: FL guided pain mgmt statistic DATE OF EXAM: 03/30/2024 HISTORY: Fluoroscopy time Total dose area product (DAP) in uGy*m?, mGy*cm? (or similar): 0.34453 IMPRESSION: 1. Fluoroscopy time. [facility], , 03/30/2024 8:22 AM
[2024-03-30 08:34] VITALS: BP 126/64; PULSE 50
[2024-03-30] MEDS ORDERED: LACTATED RINGERS 1,000 ML IV SCH (09:19)
== END 2024-03-30 09:20 | disposition home or self-care (01) ==
LOC: ORPAIN 06:53
PROVIDERS: ATTEND Pain Medicine Interventional Pain Medicine
DX: M47.816 Spondylosis without myelopathy or radiculopathy, lumbar region (principal); M51.369 Other intervertebral disc degeneration, lumbar region without mention of lumbar back pain or lower extremity pain
CPT/HCPCS: 64493; 64494; J2250; J2795; 99152

== ENCOUNTER → 2024-04-07 | Outpatient (CLI) | payer MEDICARE ==
--- NOTE | 2024-04-07 09:51 | MR ---
EXAMINATION TYPE: MR brain wo/w con DATE OF EXAM: 04/07/2024 7:15 AM COMPARISON: MRI 10/05/2022 CLINICAL INDICATION: Male, 78 years old with history of G44.209 TENSION-TYPE HEADACHE, UNSPECIFIED, N OT IN, Headaches IV Contrast: 14ml cc Gadobutrol (None if empty) TECHNIQUE: Multiplanar, multisequence images of the brain and brainstem were acquired before and aft er administration of 14ml mL IV Gadobutrol. Diffusion weighted imaging is performed. FINDINGS: No evidence for acute infarction, hemorrhage, mass effect, midline shift, herniation, effacement of b federico cisterns, or extra-axial fluid collection. Redemonstrated nonenhancing, mildly T2 hyperintense, 4 mm nodule along the lateral wall of the right lateral ventricle. There is unchanged mild ventriculomegaly with Mitchell's ratio calculated at 0.33. Major intracranial flow voids are intact. T2/FLAIR weighted sequences show moderate bright signal change throughout the subcortical, deep, and periventricular regions of both cerebral hemispheres. Changes may be minimally progressed from 2022. Some prominent perivascular spaces are also noted. Some possible subtle 4 mm hypoenhancement in the posterior aspect of the pituitary gland, refer to sa gittal postcontrast image 75. Otherwise, midline structures demonstrate normal morphology. The crani ocervical junction is normal. Post contrast images demonstrate no other evidence of pathologic enhancement. Dural venous sinuses a re patent. Moderate mucosal thickening throughout the ethmoid air cells. Some lobulated mucosal thickening floor of the left maxillary sinus. Globes are intact. IMPRESSION: 1. Moderate scattered burden of T2 bright white matter change may have minimal progression from 2022. Given patient's symptoms, sequela of chronic migraines is in the differential as well. Otherwise, ch anges may reflect chronic small vessel ischemic disease. 2. Similar mild central cerebral atrophy. 3. 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 4. Possible 4 mm area of hypoenhancement in the posterior pituitary gland. This may be normal variati on with heterogeneous enhancement. If concern for a subtle pituitary microadenoma, dedicated pituitar y MRI can be performed. 5. No acute intracranial abnormality seen. 6. Moderate chronic ethmoid and mild chronic left maxillary sinus disease. [facility], , 04/07/2024 9:48 AM
== END | disposition home or self-care (01) ==
LOC: RADMRIMAIN 06:15
PROVIDERS: ATTEND Internal Medicine
DX: G43.909 Migraine, unspecified, not intractable, without status migrainosus (principal); G31.89 Other specified degenerative diseases of nervous system; J32.0 Chronic maxillary sinusitis
CPT/HCPCS: 70553; A9585

== ENCOUNTER 2024-05-11 11:14 | Day surgery (SDC) | payer MEDICARE ==
[2024-05-07 12:30] VITALS: BMI 41.3
[2024-05-11 11:37] VITALS: TEMP 97.6
[2024-05-11] MEDS: IV FLUID CONTINUATION 1,000 ML IV ONE (11:50)
[2024-05-11] MEDS: LACTATED RINGERS 1,000 ML IV SCH (11:51)
[2024-05-11] MEDS ORDERED: MIDAZOLAM 2 MG/2 ML VIAL ONE (12:27)
[2024-05-11] MEDS ORDERED: LIDOCAINE 1% INJ 10MG/ML (5 ML VIAL-PF) ONE (12:27)
[2024-05-11] MEDS ORDERED: ROPIVACAINE 5MG/ML 20ML VIAL ONE (12:27)
[2024-05-11] MEDS ORDERED: fentaNYL (PF) 50 MCG/ML 2 ML AMP ONE (12:27)
[2024-05-11] MEDS: IV FLUID CONTINUATION 700 ML IV ONE (12:50)
[2024-05-11 12:56] VITALS: RESP 16
--- NOTE | 2024-05-11 13:02 | P.PCN ---
Description of Procedure: Preprocedure diagnosis. 1. Lumbar spondylosis with facet joint arthropathy without myelopathy. 2. Lumbar degenerative disc disease. Postprocedure diagnosis. As above. Procedure done. Bilateral diagnostic block with local anesthetics at L3, L4, L5 medial branch to target the facet joint L4- 5 and L5-S1 with fluoroscopic guidan ce (fluoroscopy images are available in the radiology department) . Anesthesia. Moderate sedation with intravenous Versed 2 mg and fentanyl 50 and local infiltration with local anesthetics. In OR, continuous pulse ox, EKG, blood pressure and verbal communication was maintained. Sedation time-start 1227 end 1244. Blood loss. Minimal. Indication. The patient has low back pain secondary to lumbar facet joint arthropathy. Discussed the procedure and alternative and complications which includes infection, bleeding, nerve damage, paralysis ,aggravation of pain. Patient understands and all questions were answered. Patient iunderstands that if any pain relief occurs it will last for a few hours to a few days maximum. Procedure description. After getting consent patient was taken in the OR in prone position. Back prepped with chlorhexidine and draped in sterile fashion. After injecting 5 mL of plain 1% lidocaine subcutaneously, a 22-gauge spinal needle was introduced under tunnel vision of the fluoroscope at the junction of the superior articular process with RIGHT ala of the sacrum. With slight oblique fluoroscope, after injecting 5 mL of plain 1% lidocaine subcutaneously, a 22-gauge spinal needle was introduced under tunnel vision of the fluoroscope at the junction of the superior articular process with RIGHT L5 transverse process, junction of the superior articular process with the RIGHT L4 transverse process. Negative CSF, negative blood, negative paresthesia. After needle position confirmation by AP and crosstable lateral view, after negative aspiration, half milliliters of solution were injected at each point. Total 1- 1/2 mL of solution was injected on the right side which consists of 0.5% ropivacaine. In exactly same way, LEFT sided injections were done at the following 3 points. Junction of the superior articular process with left ala of the sacrum, junction of the superior articular process with the left L5 transverse process, junction of the superior articular process with left L4 transverse process using 0.5 mL of solution at each point. Total 1-1/2 mL of solution was injected on the left side which consists of 0.5% ropivacaine . Spinal needles were taken out and bandages were applied. Disposition. Patient tolerated the procedure well. No complication. Discharged home in stable condition
--- NOTE | 2024-05-11 13:28 | FL ---
EXAMINATION TYPE: FL guided pain mgmt statistic DATE OF EXAM: 05/11/2024 12:55 PM COMPARISON: Pre Operative Images if available both CT/MRI or plain film CLINICAL INDICATION: Male, 78 years old with history of FACET BLOCK LUM; TECHNIQUE: FL guided pain mgmt statistic, multiple fluoroscopic images provided for procedure. Total fluoroscopy time: 5.48 seconds Total submitted images to PACS: 6 DAP: [id number] mGym2 Gycm2 uGym2 cGycm2 or equivalent. FINDINGS: Fluoroscopic images during injection for pain management demonstrate multilevel degeneration changes throughout the spine. No evidence for fracture. No acute process identified. IMPRESSION: 1. No evidence for intraoperative complication. 2. Please see the operative/procedural note for further details. [facility], , 05/11/2024 1:25 PM
[2024-05-11 13:34] VITALS: BP 155/72; PULSE 63
== END 2024-05-11 13:25 ==
LOC: ORPAIN 11:14
PROVIDERS: ATTEND Pain Medicine Interventional Pain Medicine
DX: M47.816 Spondylosis without myelopathy or radiculopathy, lumbar region (principal); M51.369 Other intervertebral disc degeneration, lumbar region without mention of lumbar back pain or lower extremity pain
CPT/HCPCS: 64493; 64494; J2250; J2003; J3010; J2795; 99152; 99153

== ENCOUNTER → 2024-05-27 | Outpatient (CLI) | payer MEDICARE ==
[2024-05-27 13:48] VITALS: BP 149/66; PULSE 65; RESP 16; TEMP 98.2
--- NOTE | 2024-05-27 14:13 | P.PAINPG ---
Objective - Vital Signs Vital signs: Vital Signs Temp 98.2 F 05/27/24 13:45 Pulse 65 05/27/24 13:45 Resp 16 05/27/24 13:45 BP 149/66 05/27/24 13:45 Pulse Ox 95 05/27/24 13:45 FiO2 Intake & Output 05/26/24 05/27/24 05/27/24 18:59 06:59 18:59 Weight 139.706 kg PQRS Measure Charge Sheet Mode of Arrival: Ambulatory Comment: A 78 yr old male with a history of severe and chronic LBP x 5 yrs secondary to post L4-S1 laminectomy w decompression presents today for evaluation s/p BL MBB L4-L5, L5-S1 #2. Pt states he experienced >80 % pain relief x 2 days s/p procedure. Pain level is provoked at 6-7 /10 in intensity, constant, localized in the lumbar spine, predominantly axial, achy in character without shooting pain. Pain is provoked by any movement. Pain is alleviated with PT x 6 wks which ended in Sep 2023 without relief, physician guided home stretches daily since Sep 2023, heat, medications, use of a cane for ambulatory assistance, repositioning and rest. Interventional pain procedures completed include BL RFA L1-L3, DOMENICO R paramedian L2-L3 x1, Lumbar TPIs x2, Caudal DOMENICO, BL MBB L3-L5 x2 Patient is currently on Tyl, Lyrica Patient denies any side effects of the medication(s), denies excessive drowsiness or sleepiness, denies suicidal ideation and reports that the current pain medication is helping to control the pain and improve activities of daily living. Patient denies any motor or sensory deficits. Patient denies any fever or night sweats, denies any change in the bowel movements or urination. Physical Examination: -Constitutional: Cooperative. Not in acute distress . - Neurologic: Cranial nerve II to XII intact. No focal neurological deficits. - Psychatric: Alert & oriented x 3. Matching mood & appropriate affect. Judgment and insight intact. - Musculoskeletal: Cervical spine: Muscle bulk/ tone/ strength in the bilateral upper extremities normal Vertebral body tenderness to palpation over Spurling test positive Distraction test positive Facet loading test positive TTP Thoracic spine Muscle bulk / tone/ strength in the bilateral paraspinal muscles normal Vertebral body tender to palpation over Facet loading test positive TTP Lumbar spine: Motor bulk/ tone/ strength lower extremities , thigh and legs : 5/5 Deep tendon reflexes : Normal Knee Jerk. Normal Ankle Jerk . Vertebral body tenderness to palpation over L2 Grant Test positive over R L2-L3 BL taut bands w twitch response Lumbar Facet Loading Test positive BL L4-L5, L5-S1 Straight Leg Raise: positive at 30 degrees right side/ left side Gaenslen's Test positive Sacral spine : Severe tenderness over the Sacroiliac joint: right side / left side Range of motion: Flexion of the lumbar spine <60 degrees Range of motion: Extension of the lumbar spine <20 degrees Gaenslen's Test positive right side / left side Agata test: positive right side / left side Thigh Thrust Test positive right side / left side Sacral Thrust Test positive right side / left side Imaging: JORGE non contrast lumbar spine from 01/07/24 reviewed Assessment and plan: Chronic LBP secondary to post L4-S1 laminectomy w decompression Recommendation of BL RFA L4-L5, L5-S1. Risks, benefits of procedure discussed and pt verbalized understanding. Protocol for discontinuation/ continuation of medications taco procedure discussed. Minimal anesthesia including Fentanyl and Versed if clinically indicated. All questions answered. I have spent less than 30 minutes on patient care today. Dr Crouch was available by phone for the evaluation of this patient. The time was used to review the medical records including relevant urine studies and Prescription history (MAPs), review of the available imaging, evaluation and examination of the patient, coordination of care with the medical staff and if applicable referring physicians, as well as creation of the medical record - Pain Location Lower Back Non-Pharmacological Interventions: Relaxation Technique Pharmacological Interventions: Medication PQRS Narrative: Blood Pressure 149/66 Pain Intensity [Lower Back] 4 Scale Used Numeric (1 - 10) Hx Alcohol Use (MH) Yes Home Medications: Ambulatory Orders Aspirin EC [Ecotrin Low Dose] 81 mg PO DAILY 01/20/20 Multivit-Min/FA/Lycopen/Lutein [Centrum Silver Tablet] 1 tab PO DAILY 01/20/20 Simvastatin [Zocor] 20 mg PO HS 01/20/20 amLODIPine [Norvasc] 10 mg PO DAILY 01/20/20 hydroCHLOROthiazide [Hydrodiuril] 25 mg PO DAILY 01/20/20 lisinopriL [Zestril] 20 mg PO BID 01/20/20 Fluticasone/Umeclidin/Vilanter [Trelegy Ellipta 100-62.5-25] 1 puff INHALATION RT-DAILY 04/05/21 Vitamin B Complex 1 cap PO DAILY 10/24/21 allopurinoL 300 mg PO DAILY 10/24/21 Albuterol Inhaler [Ventolin Hfa Inhaler] 1 - 2 puff INHALATION RT-Q6H PRN 05/20/22 Metoprolol Tartrate [Lopressor] 50 mg PO DAILY 01/23/24 Controlled Substance Measures - Controlled Substance Measures Is patient prescribed a controlled substance at discharge?: No
== END ==
LOC: PNWHC3 13:32
PROVIDERS: ATTEND Specialist
DX: M96.1 Postlaminectomy syndrome, not elsewhere classified (principal); G89.29 Other chronic pain; Z88.5 Allergy status to narcotic agent
CPT/HCPCS: 99212

== ENCOUNTER 2024-06-18 06:00 | Day surgery (SDC) | payer MEDICARE ==
[2024-06-17 08:49] VITALS: BMI 42.0
[2024-06-18 06:27] VITALS: TEMP 96.7
[2024-06-18] MEDS: LACTATED RINGERS 1,000 ML IV SCH (06:30)
[2024-06-18] MEDS: IV FLUID CONTINUATION 1,000 ML IV ONE ×2 (06:30→07:37)
[2024-06-18] MEDS ORDERED: MIDAZOLAM 2 MG/2 ML VIAL ONE (07:04)
[2024-06-18] MEDS ORDERED: methylPREDNISolone ACETATE 40 MG/ML 1 ML VIAL ONE (07:04)
[2024-06-18] MEDS ORDERED: fentaNYL (PF) 50 MCG/ML 2 ML AMP ONE (07:04)
[2024-06-18] MEDS ORDERED: ROPIVACAINE 5MG/ML 20ML VIAL ONE (07:04)
--- NOTE | 2024-06-18 07:34 | P.PCN ---
Date of Procedure: 06/18/24 Procedure(s) Performed: PREOPERATIVE DIAGNOSIS: 1-Lumbar Spondylosis with Facet Arthropathy without myelopathy. 2- Lumber degenerative disc disease. POSTOPERATIVE DIAGNOSIS: 1- Lumbar Spondylosis with Facet Arthropathy without myelopathy. 2- Lumber degenerative disc disease. PROCEDURES : Bilateral Radiofrequency thermocoagulation, L3 , L4 , and L5 medial branch, with fluro guid (fluoro images available in the rad dept) ( to denervate the facet joint at bilateral L4-5 ,and L5-S1 levels ). ANESTHESIA: Moderate sedation with intravenous versed 2 mg and fentaneyl 100 mcg, (start time 07:04, end at 07:30 ) EBL: Minimal PROCEDURE INDICATION: The patient with low back pain secondary to lumbar facet arthropathy who had more than 50% relief of her pain with previous diagnostic lumbar medial branch block with bupivacaine. PROCEDURE DESCRIPTION / TECHNIQUE: The patient was seen and identified in the preoperative area. Risks, benefits, complications, including but not limited to risk of infection ,bleeding , allergic reactions to the medications and no complete pain releife , and alternatives were discussed with the patient, the patient agreed to proceed with the procedure and signed the consent. IV was started. Vital signs remained stable throughout the procedure. Patient was taken to the OR and time out was completed. The patient was placed in the prone position on the procedure table. The lumber area was prepped and draped in the usual sterile fashion. . Vital signs were closely monitored during the procedure .IV sedation was used during the procedure to decrease patients anxiety. Using AP and then oblique fluoroscopy, the ``eye of the Jensen dog corresponding to the connection between the superior and transverse articular processes of right L3, L4, and L5 were identified, marked, and localized with 1% lidocaine. Subsequently, a 18 -lw (Venom ) radiofrequency cannula with a 10-mm active tip was advanced guided by fluoroscopy to each of the``eyes of the Jensen dog at right L3, L4, and L5. Each site then underwent sensory testing at 50 Hz and 0 to 1 volt and motor testing at 2.5 Hz and 0 to 3 volt with local stimulation, but no radicular symptoms down the legs. Thereafter each sites underwent radiofrequency thermocoagulation at 80 degrees celsius for 90 seconds after injecting 0.5 ml of PF Ropivacaine 1ml, then after the thermocoagulation done , 1 ml of the block solution containing Depo-Medrol 20 mg and 3 ml of Ropivacaine 0.5% was injected at the right L3 , L4 , and L5 , levels after negative aspiration of CSF and blood and with no paresthesias. Cannulas were retracted while injecting lidocaine 1% until the needle is out. The same procedure was repeated at the level of Left L3, L4, and L5 levels. At the end of the procedure, the skin was cleansed and bandages were applied. COMPLICATIONS: No acute complications. DISPOSITION / PLANS: The patient was placed in a supine position and transferred to the recovery area in a stable condition for observation and was discharged from the recovery room after meeting discharge criteria. Home discharge instructions given to the patient by the staff. The patient was reexamined prior to discharge. The patient will schedule a follow up in the clinic in 2-4 weeks.
[2024-06-18 07:40] VITALS: RESP 16
--- NOTE | 2024-06-18 07:42 | FL ---
Fluoroscopy INDICATION: Pain FINDINGS: Fluoroscopy time: 63.1 seconds. Total dose area product (DAP) in uGy*m?, mGy*cm? (or similar): 0.66224 Images obtained: 7. Images document [place] directed towards the lumbar spine IMPRESSION: 1. Documentation of fluoroscopy. [facility], , 06/18/2024 7:39 AM
[2024-06-18 07:50] VITALS: BP 125/73; PULSE 56
== END 2024-06-18 08:11 ==
LOC: ORPAIN 06:00
PROVIDERS: ATTEND Specialist
DX: M47.816 Spondylosis without myelopathy or radiculopathy, lumbar region (principal); M51.369 Other intervertebral disc degeneration, lumbar region without mention of lumbar back pain or lower extremity pain
CPT/HCPCS: 64635; 64636; J2250; J3010; J2795; J1010

== ENCOUNTER → 2024-07-12 | Outpatient (CLI) | payer MEDICARE ==
[2024-07-12 13:20] VITALS: BP 113/65; PULSE 64; RESP 19
--- NOTE | 2024-07-12 16:39 | P.PAINPG ---
PQRS Measure Charge Sheet Comment: A 78 yr old male with a history of severe and chronic LBP x 5 yrs secondary to post L4-S1 laminectomy w decompression presents today for evaluation s/p BL RFA L4-L5, L5-S1. Pt states he experienced >80 % pain relief s/p procedure. Pain level is provoked at 3 /10 in intensity, constant, localized in the lumbar spine, predominantly axial, achy in character without shooting pain. Pain is provoked by any movement. Pain is alleviated with PT x 6 wks which ended in Sep 2023 without relief, physician guided home stretches daily since Sep 2023, heat, medications, use of a cane for ambulatory assistance, repositioning and rest. Interventional pain procedures completed include BL RFA L1-L3, DOMENICO R paramedian L2-L3 x1, Lumbar TPIs x2, Caudal DOMENICO, BL RFA L3-L5 (07/02) Patient is currently on Tyl, Lyrica Patient denies any side effects of the medication(s), denies excessive drowsiness or sleepiness, denies suicidal ideation and reports that the current pain medication is helping to control the pain and improve activities of daily living. Patient denies any motor or sensory deficits. Patient denies any fever or night sweats, denies any change in the bowel movements or urination. Physical Examination: -Constitutional: Cooperative. Not in acute distress . - Neurologic: Cranial nerve II to XII intact. No focal neurological deficits. - Psychatric: Alert & oriented x 3. Matching mood & appropriate affect. Judgment and insight intact. - Musculoskeletal: Cervical spine: Muscle bulk/ tone/ strength in the bilateral upper extremities normal Vertebral body tenderness to palpation over Spurling test positive Distraction test positive Facet loading test positive TTP Thoracic spine Muscle bulk / tone/ strength in the bilateral paraspinal muscles normal Vertebral body tender to palpation over Facet loading test positive TTP Lumbar spine: Motor bulk/ tone/ strength lower extremities , thigh and legs : 5/5 Deep tendon reflexes : Normal Knee Jerk. Normal Ankle Jerk . Vertebral body tenderness to palpation over L2 Grant Test positive over R L2-L3 BL taut bands w twitch response Lumbar Facet Loading Test positive R L5-S1 Straight Leg Raise: positive at 30 degrees right side/ left side Gaenslen's Test positive Sacral spine : Severe tenderness over the Sacroiliac joint: right side / left side Range of motion: Flexion of the lumbar spine <60 degrees Range of motion: Extension of the lumbar spine <20 degrees Gaenslen's Test positive right side / left side Agata test: positive right side / left side Thigh Thrust Test positive right side / left side Sacral Thrust Test positive right side / left side Imaging: JORGE non contrast lumbar spine from 01/07/24 reviewed Assessment and plan: Chronic LBP secondary to post L4-S1 laminectomy w decompression Recommendation of R iliolumbar ligament #1. Risks, benefits of procedure discussed and pt verbalized understanding. All questions answered. I have spent less than 30 minutes on patient care today. Dr Crouch was available by phone for the evaluation of this patient. The time was used to review the medical records including relevant urine studies and Prescription history (MAPs), review of the available imaging, evaluation and examination of the patient, coordination of care with the medical staff and if applicable referring physicians, as well as creation of the medical record - Pain Location Lower Back Non-Pharmacological Interventions: Heat, Position/Reposition Pharmacological Interventions: Medication PQRS Narrative: Hx Alcohol Use (MH) Yes Home Medications: Ambulatory Orders Aspirin EC [Ecotrin Low Dose] 81 mg PO DAILY 01/20/20 Multivit-Min/FA/Lycopen/Lutein [Centrum Silver Tablet] 1 tab PO DAILY 01/20/20 Simvastatin [Zocor] 20 mg PO HS 01/20/20 amLODIPine [Norvasc] 10 mg PO DAILY 01/20/20 hydroCHLOROthiazide [Hydrodiuril] 25 mg PO DAILY 01/20/20 lisinopriL [Zestril] 20 mg PO BID 01/20/20 Fluticasone/Umeclidin/Vilanter [Trelegy Ellipta 100-62.5-25] 1 puff INHALATION RT-DAILY 04/05/21 Vitamin B Complex 1 cap PO DAILY 10/24/21 allopurinoL 300 mg PO DAILY 10/24/21 Albuterol Inhaler [Ventolin Hfa Inhaler] 1 - 2 puff INHALATION RT-Q6H PRN 05/20/22 Metoprolol Tartrate [Lopressor] 50 mg PO DAILY 01/23/24 Controlled Substance Measures - Controlled Substance Measures Is patient prescribed a controlled substance at discharge?: No
== END ==
LOC: PNWHC3 13:01
PROVIDERS: ATTEND Specialist
DX: T73.0XXA Starvation, initial encounter (principal); G89.29 Other chronic pain; M96.1 Postlaminectomy syndrome, not elsewhere classified; Z88.5 Allergy status to narcotic agent
CPT/HCPCS: 99212

== ENCOUNTER → 2024-08-18 | Outpatient (CLI) | payer MEDICARE ==
[2024-08-18 13:26] VITALS: BP 119/73; PULSE 66; RESP 19
--- NOTE | 2024-08-18 16:08 | P.PAINPG ---
Objective - Vital Signs Vital signs: Vital Signs Temp Pulse 66 08/18/24 13:20 Resp 19 08/18/24 13:20 BP 119/73 08/18/24 13:20 Pulse Ox 96 08/18/24 13:20 FiO2 Intake & Output 08/17/24 08/18/24 08/18/24 18:59 06:59 18:59 Weight 140.614 kg PQRS Measure Charge Sheet Mode of Arrival: Ambulatory Comment: A 78 yr old male with a history of severe and chronic LBP x 5 yrs secondary to post L4-S1 laminectomy w decompression presents today for evaluation s/p R iliolumbar ligament #1. Pt states he experienced >50 % pain relief x 3 wks s/p procedure. Pain level is provoked at 2 /10 in intensity, constant, localized in the lumbar spine, predominantly axial, achy in character without shooting pain. Pain is provoked by any movement. Pain is alleviated with PT x 6 wks which ended in Sep 2023 without relief, physician guided home stretches daily since Sep 2023, heat, medications, use of a cane for ambulatory assistance, repositioning and rest. Interventional pain procedures completed include BL RFA L1-L3, DOMENICO R paramedian L2-L3 x1, Lumbar TPIs x2, Caudal DOMENICO, BL RFA L3-L5 (07/02), R iliolumbar ligament x1 (08/01) Patient is currently on Tyl, Lyrica Patient denies any side effects of the medication(s), denies excessive drowsiness or sleepiness, denies suicidal ideation and reports that the current pain medication is helping to control the pain and improve activities of daily living. Patient denies any motor or sensory deficits. Patient denies any fever or night sweats, denies any change in the bowel movements or urination. Physical Examination: -Constitutional: Cooperative. Not in acute distress . - Neurologic: Cranial nerve II to XII intact. No focal neurological deficits. - Psychatric: Alert & oriented x 3. Matching mood & appropriate affect. Judgment and insight intact. - Musculoskeletal: Cervical spine: Muscle bulk/ tone/ strength in the bilateral upper extremities normal Vertebral body tenderness to palpation over Spurling test positive Distraction test positive Facet loading test positive TTP Thoracic spine Muscle bulk / tone/ strength in the bilateral paraspinal muscles normal Vertebral body tender to palpation over Facet loading test positive TTP Lumbar spine: Motor bulk/ tone/ strength lower extremities , thigh and legs : 5/5 Deep tendon reflexes : Normal Knee Jerk. Normal Ankle Jerk . Vertebral body tenderness to palpation over L2 Grant Test positive over R L2-L3 BL taut bands w twitch response Lumbar Facet Loading Test positive R L5-S1 Straight Leg Raise: positive at 30 degrees right side/ left side Gaenslen's Test positive Sacral spine : Severe tenderness over the Sacroiliac joint: right side / left side Range of motion: Flexion of the lumbar spine <60 degrees Range of motion: Extension of the lumbar spine <20 degrees Gaenslen's Test positive right side / left side Agata test: positive right side / left side Thigh Thrust Test positive right side / left side Sacral Thrust Test positive right side / left side Imaging: JORGE non contrast lumbar spine from 01/07/24 reviewed Assessment and plan: Chronic LBP secondary to post L4-S1 laminectomy w decompression Will manage residual pain and may RTC on an as needed basis. All questions answered. I have spent less than 30 minutes on patient care today. Dr Crouch was available by phone for the evaluation of this patient. The time was used to review the medical records including relevant urine studies and Prescription history (MAPs), review of the available imaging, evaluation and examination of the patient, coordination of care with the medical staff and if applicable referring physicians, as well as creation of the medical record - Pain Location Lower Back Pharmacological Interventions: Medication PQRS Narrative: Blood Pressure 119/73 Pain Intensity [Lower Back] 2 Scale Used Numeric (1 - 10) Hx Alcohol Use (MH) Yes Home Medications: Ambulatory Orders Aspirin EC [Ecotrin Low Dose] 81 mg PO DAILY 01/20/20 Multivit-Min/FA/Lycopen/Lutein [Centrum Silver Tablet] 1 tab PO DAILY 01/20/20 Simvastatin [Zocor] 20 mg PO HS 01/20/20 amLODIPine [Norvasc] 10 mg PO DAILY 01/20/20 hydroCHLOROthiazide [Hydrodiuril] 25 mg PO DAILY 01/20/20 lisinopriL [Zestril] 20 mg PO BID 01/20/20 Fluticasone/Umeclidin/Vilanter [Trelegy Ellipta 100-62.5-25] 1 puff INHALATION RT-DAILY 04/05/21 Vitamin B Complex 1 cap PO DAILY 10/24/21 allopurinoL 300 mg PO DAILY PRN 10/24/21 Albuterol Inhaler [Ventolin Hfa Inhaler] 1 - 2 puff INHALATION RT-Q6H PRN 05/20/22 Metoprolol Tartrate [Lopressor] 50 mg PO DAILY 01/23/24 Controlled Substance Measures - Controlled Substance Measures Is patient prescribed a controlled substance at discharge?: No
== END ==
LOC: PNWHC3 13:01
PROVIDERS: ATTEND Specialist
DX: M47.27 Other spondylosis with radiculopathy, lumbosacral region (principal); M96.1 Postlaminectomy syndrome, not elsewhere classified; Z88.5 Allergy status to narcotic agent
CPT/HCPCS: 99212